=== PATIENT | male | born 1930 | race Caucasian/White ===

== ENCOUNTER → 2017-03-19 | Outpatient (CLI) | payer MEDICARE, OTHER ==
[~2017-03-19] MED LIST: ASPIR 8181 MG PO; CARVEDILOL3.125 MG PO; COLESTIPOL HCL1 GM PO; GLIMEPIRIDE2 MG PO; ISOSORBIDE MONO20 MG PO; LEVOTHYROXINE100 MC1 IV; LEVOTHYROXINE75 MCG PO; LOSARTAN POTASS25 MG PO; PLAVIX75 MG PO; RANEXA500 MG PO; ZETIA10 MG PO
--- NOTE | 2017-03-19 12:24 | Diagnostic Imaging Report ---
PROCEDURE: CT CHEST WITHOUT CONTRAST CT scan of the chest WITHOUT intravenous contrast, using standard protocol. TECHNIQUE: The chest was scanned utilizing a multidetector helical scanner from the apex to the level of the adrenal glands without IV contrast. Coronal and sagittal multiplanar reformations were obtained. COMPARISON: None. INDICATIONS: PULMONARY NODULE FINDINGS: Lines/tubes: The leads from a left chest wall biventricular pacemaker/AICD are in the expected positions. Lungs and Airways: 3 mm nodule in the left lung base (series 3, image 90) was originally described on 09/01/2015 and is stable since then. Subsegmental atelectasis of the lung bases. There is subpleural scarring throughout both lungs. No new/suspicious lung nodules. Pleura: Bilateral calcified pleural plaques, unchanged. No pneumothorax or pleural effusions. Heart and mediastinum: The thyroid gland is normal. No significant mediastinal, hilar or axillary lymphadenopathy is seen. Postsurgical changes from prior CABG. Dense atherosclerotic calcification of the [place] coronary arteries. No pericardial effusion. Dense atherosclerotic calcification of the thoracic aorta. The ascending thoracic aorta measures 4.2 cm in transaxial dimension. This is unchanged. Soft tissues: Normal. Abdomen: Limited views of the upper abdomen show no specific abnormality. Bones: Multilevel degenerative changes of the thoracic spine. Median sternotomy wires appear intact. IMPRESSION: 1. 3 mm nodule in the lower lobe of the left lung, stable since at least 09/01/2015. This is consistent with a benign etiology. No new or suspicious lung nodules. 2. Calcified pleural plaques, unchanged. Dictated by: Obie Ferreira M.D. on 03/19/2017 at 12:34 Electronically approved by: Obie Ferreira M.D. on 03/19/2017 at 12:34
== END ==
LOC: CT 09:36
PROVIDERS: ATTEND Internal Medicine Critical Care Medicine
DX: R91.1 Solitary pulmonary nodule (principal)
CPT/HCPCS: 71250

== ENCOUNTER 2017-07-18 18:05 | Observation (INO) | payer MEDICARE, OTHER ==
[~2017-07-18] VITALS: Ht 177.8 cm; Wt 95.4 kg
--- OUTSIDE RECORDS SUMMARY | 2017-07-18 18:09 | XMS REPORT | Clinical Summary ---
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 Disp. Refills Start End Date Status Date losartan (COZAAR) 100 MG Take 100 mg by mouth Active tablet daily. carvedilol (COREG) 12.5 Take 12.5 mg by mouth 2 Active MG tablet (two) times a day with meals. amIODarone (PACERONE) 200 Take 200 mg by mouth Active MG tablet daily. aspirin (ECOTRIN) 81 MG Take 81 mg by mouth Active enteric coated tablet daily. hydroCHLOROthiazide Take 25 mg by mouth Active (HYDRODIURIL) 25 MG daily. tablet LEVOTHYROXINE SODIUM Take by mouth. Active (SYNTHROID ORAL) glimepiride (AMARYL) 2 MG Take 2 mg by mouth daily Active tablet before breakfast. ranolazine (RANEXA) 500 Take 500 mg by mouth 2 Active MG 12 hr ER tablet (two) times a day. pantoprazole (PROTONIX) Take 20 mg by mouth Active 20 MG EC tablet daily. Active Problems Not on file Social History Tobacco Use Types Packs/Day Years Used Date Never Smoker Alcohol Use Drinks/Week oz/Week Comments No Sex Assigned at Date Recorded Not on file Last Filed Vital Signs Not on file Plan of Treatment Health Maintenance Due Date Last Done Comments SHINGRIX VACCINE (#1) 1982 ZOSTER VACCINE 1992 PNEUMOCOCCAL 1997 POLYSACCHARIDE VACCINE AGE 65 AND OVER PNEUMOCOCCAL-13 1997 INFLUENZA VACCINE 09/22/2017 Results Not on fileafter 07/17/2016 Insurance Payer Benefit Subscriber ID Type Phone Address Plan / Group MEDICARE MEDICARE xxxxxxxxxx Medicare [place] PART A AND B [facility] xxxxxxxxx HMO/PPO THCARE CHOICE/CHO ICE +
--- OUTSIDE RECORDS SUMMARY | 2017-07-18 18:09 | XMS REPORT ---
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 Allergies, Adverse Reactions, Alerts This patient has no known allergies or adverse reactions. Medications This patient has no known medications. Results Test Description Test Time Test Comments Text Results Atomic Results Result Comments CT CHEST WO [place] [address] Patient Name: SIDDHARTHA FLOWERS MR #: [id number] : 1930 Age/Sex: 86/M Req #: [id number] Adm Physician: Ordered by: ROSY MAY MD Report #: [id number] Location: CT Room/Bed: Procedure: [id number] CT/CT CHEST WO Exam Date: 03/19/17 Exam Time: 1000 REPORT STATUS: Signed PROCEDURE: CT CHEST WITHOUT CONTRAST CT scan of the chest WITHOUT intravenous contrast, using standard protocol. TECHNIQUE: The chest was scanned utilizing a multidetector helical scanner from the apex to the level of the adrenal glands without IV contrast. Coronal and sagittal multiplanar reformations were obtained. COMPARISON: None. INDICATIONS: PULMONARY NODULE FINDINGS: Lines/tubes: The leads from a left chest wall biventricular pacemaker/AICD are in the expected positions. Lungs and Airways: 3 mm nodule in the left lung base ( series 3, image 90) was originally described on 09/01/2015 and is stable since then. Subsegmental atelectasis of the lung bases. There is subpleural scarring throughout both lungs. No new/suspicious lung nodules. Pleura: Bilateral calcified pleural plaques, unchanged. No pneumothorax or pleural effusions. Heart and mediastinum: The thyroid gland is normal. No significant mediastinal, hilar or axillary lymphadenopathy is seen. Postsurgical changes from prior CABG. Dense atherosclerotic calcification of the [place] coronary arteries. No pericardial effusion. Dense atherosclerotic calcification of the thoracic aorta. The ascending thoracic aorta measures 4.2 cm in transaxial dimension. This is unchanged. Soft tissues: Normal. Abdomen: Limited views of the upper abdomen show no specific abnormality. Bones: Multilevel degenerative changes of the thoracic spine. Median sternotomy wires appear intact. IMPRESSION: 1. 3 mm nodule in the lower lobe of the left lung, stable since at least 09/01/2015. This is consistent with a benign etiology. No new or suspicious lung nodules. 2. Calcified pleural plaques, unchanged. Dictated by: Bethany Ferreira M.D. on 03/19/2017 at 12 :34 Electronically approved by: Bethany Ferreira M.D. on 03/19/2017 at 12: 34 Dictated By: BETHANY FERREIRA MD [id number] Transcribed By: AMILCAR on 03/19/17 1234 COPY TO: ROSY MAY MD
[2017-07-18 18:31] LABS: BASOPHILS % 0.7 % (0.0-1.0); EOSINOPHILS # (AUTO) 0.2 (0.0-0.4); EOSINOPHILS % 3.8 % (0.0-6.0); HEMATOCRIT 36.8 % (38.2-49.6); HEMOGLOBIN 12.1 g/dL (14.0-18.0); LYMPHOCYTES % 35.2 % (18.0-39.1); MEAN CORPUSCULAR HEMOGLOBIN 31.8 pg (28-32); MEAN CORPUSCULAR HGB CONC 32.9 g/dL (31-35); MEAN CORPUSCULAR VOLUME 96.6 fL (81-99); MONOCYTES # (AUTO) 0.7 (0.2-0.8); MONOCYTES % 11.8 % (4.4-11.3); NEUTROPHILS # (AUTO) 2.8 (2.1-6.9); NEUTROPHILS % 48.2 % (38.7-80.0); PLATELET COUNT 167 x10e3/uL (140-360); RED BLOOD COUNT 3.81 x10e6/uL (4.3-5.7); RED CELL DISTRIBUTION WIDTH 14.6 % (11.7-14.4)
[2017-07-18 18:40] LABS: INR 1.05; PROTHROMBIN TIME 12.9 seconds (11.9-14.5)
[2017-07-18 18:41] LABS: PARTIAL THROMBOPLASTIN TIME 27.6 seconds (23.8-35.5)
[2017-07-18 18:47] LABS: ALBUMIN 3.6 g/dL (3.5-5.0); ALBUMIN/GLOBULIN RATIO 0.9 (0.8-2.0); ANION GAP 13.1 mmol/L (8-16); CALCIUM 9.4 mg/dL (8.4-10.2); CREATININE, SERUM 1.36 mg/dL (0.72-1.25); MAGNESIUM 2.1 MG/DL (1.3-2.1); POTASSIUM 4.1 mmol/L (3.5-5.1)
[2017-07-18] MEDS ORDERED: HEPARIN 25,000U/0.45% NS 250ML 1,000 UNIT in SODIUM CHLORIDE 0.9% 250ML 0 ML IV SCH ×2 (19:00→19:45)
[2017-07-18 19:07] LABS: CREATINE KINASE MB 2.2 ng/mL (0-5.0); THYROID STIMULATING HORMONE 0.84 uIU/mL (0.350-4.940)
[2017-07-18] MEDS ORDERED: PANTOPRAZOLE SO40 MG PO (19:08)
[2017-07-18] MEDS ORDERED: ARICEPT5 MG PO (19:08)
[2017-07-18] MEDS ORDERED: AMIODARONE HCL200 MG PO (19:08)
--- NOTE | 2017-07-18 19:21 | Diagnostic Imaging Report ---
Exam: Head CT without contrast History: Left facial droop, following to left side multiple prior head CTs which date to 10/30/2015, most recent head CT of 07/29/2016. Comparison studies: None Technique: Axial images were obtained from the skull base to the vertex. Coronal and sagittal images reconstructed from the axial data. Intravenous contrast: None Findings: Scalp: No abnormalities. Bones: No fractures, blastic or lytic lesions. Brain volume: Mild generalized volume loss. Slightly greater disproportionate volume loss along the anteromedial temporal lobes is nonspecific. Ventricles: Mild compensatory dilatation. No hydrocephalus. Extra-axial spaces: No masses, no fluid collection. Parenchyma: No mass, acute hemorrhage or acute cortical vascular insults. Subtle hypodensity within the right middle and inferior frontal subcortical white matter was not visualized on the previous exams related to age-indeterminate nonhemorrhagic insult or possibly microvascular ischemic changes. A few additional scattered hypodensities in the supratentorial white matter are nonspecific but most compatible with chronic small vessel ischemic changes. Sellar/suprasellar region: No abnormalities. Craniocervical junction: Patent foramen magnum. No Chiari one malformation. Incidental findings: Atherosclerotic calcifications in the carotid siphons and left vertebral artery. A few scattered leptomeningeal calcifications are again identified. IMPRESSION: 1. Age-indeterminate nonhemorrhagic right frontal subcortical insult. 2. No other changes from the previous head CT of 07/29/2016. 3. Mild chronic microvascular ischemic changes. 4. Mild generalized volume loss. Superimposed disproportionate anteromedial temporal lobe volume loss is nonspecific but can be seen with Alzheimer's dementia in appropriate clinical setting. Signed by: Dr. Lenny Barry M.D. on 07/18/2017 7:17 PM
[2017-07-18 19:32] LABS: BILIRUBIN,URINE NEGATIVE (NEGATIVE); CLARITY,URINE CLEAR (CLEAR); COLOR,URINE YELLOW (YELLOW); KETONES,URINE NEGATIVE (NEGATIVE); LEUKOCYTE ESTERASE ,URINE NEGATIVE (NEGATIVE); NITRITE,URINE NEGATIVE (NEGATIVE); PROTEIN,URINE DIPSTICK NEGATIVE (NEGATIVE); URINE UROBILINOGEN 0.2 mg/dL (0.2 - 1)
[2017-07-18 19:45] LABS: BACTERIA,URINE RARE /HPF; EPITHELIAL CELLS,URINE RARE /LPF; WBC,URINE (MAN) 0-5 /HPF (0-5)
[2017-07-18] MEDS ORDERED: SODIUM CHLORIDE FLUSH 10 ML SYR INJ PRN (19:45)
[2017-07-18] MEDS ORDERED: ONDANSETRON HCL INJ 2 MG/ML VIAL IV PRN (19:45)
--- NOTE | 2017-07-18 19:48 | Diagnostic Imaging Report ---
EXAM: CHEST SINGLE (PORTABLE), AP 1 view INDICATION: Possible stroke COMPARISON: None FINDINGS: LINES/TUBES: Left approach cardiac device. LUNGS: No consolidations or edema. PLEURA: No effusions or pneumothorax. Calcified pleural plaques. HEART AND MEDIASTINUM: Normal for technique. BONES AND SOFT TISSUES: No acute findings. Chronic widening of the right acromioclavicular joint. IMPRESSION: No acute thoracic abnormality. Signed by: Dr. Nalini Sal M.D. on 07/18/2017 7:44 PM
[2017-07-18] MEDS ORDERED: ZOLOFT50 MG PO (20:19)
--- OUTSIDE RECORDS SUMMARY | 2017-07-18 20:33 | XMS REPORT | Clinical Summary ---
Author Author [facility] Address Unknown Phone Unavailable Care Team Providers Care Rn Night Name Role Phone Asked, Pcp PCP Unavailable [...] Plan / Group MEDICARE MEDICARE xxxxxxxxxx Medicare [place], [place] PART A AND B [facility] xxxxxxxxx HMO/PPO THCARE CHOICE/CHO ICE +
[2017-07-18 21:24] VITALS: BP 155/65
[2017-07-19] VITALS (8 sets, daily range): BP systolic 120–157; BP diastolic 58–69
[2017-07-19 08:14] LABS: BASOPHILS % 0.9 % (0.0-1.0); EOSINOPHILS # (AUTO) 0.2 (0.0-0.4); EOSINOPHILS % 3.5 % (0.0-6.0); HEMATOCRIT 34.4 % (38.2-49.6); HEMOGLOBIN 11.2 g/dL (14.0-18.0); LYMPHOCYTES # (AUTO) 1.4 (1.0-3.2); LYMPHOCYTES % 30.1 % (18.0-39.1); MEAN CORPUSCULAR HEMOGLOBIN 31.5 pg (28-32); MEAN CORPUSCULAR HGB CONC 32.6 g/dL (31-35); MEAN CORPUSCULAR VOLUME 96.9 fL (81-99); MONOCYTES # (AUTO) 0.5 (0.2-0.8); MONOCYTES % 11.8 % (4.4-11.3); NEUTROPHILS # (AUTO) 2.5 (2.1-6.9); NEUTROPHILS % 53.5 % (38.7-80.0); PLATELET COUNT 146 x10e3/uL (140-360); RED BLOOD COUNT 3.55 x10e6/uL (4.3-5.7); RED CELL DISTRIBUTION WIDTH 14.5 % (11.7-14.4)
[2017-07-19 08:39] LABS: CREATINE KINASE MB 2.2 ng/mL (0-5.0)
[2017-07-19] MEDS ORDERED: CLOPIDOGREL BISULFATE 75 MG TAB PO SCH (09:00)
[2017-07-19] MEDS ORDERED: ASPIRIN 81 MG ENTERIC COATED PO SCH (09:00)
[2017-07-19 09:01] LABS: ANION GAP 12.1 mmol/L (8-16); CALCIUM 8.9 mg/dL (8.4-10.2); CREATININE, SERUM 1.24 mg/dL (0.72-1.25); POTASSIUM 4.1 mmol/L (3.5-5.1)
--- NOTE | 2017-07-19 12:34 | History and Physical ---
CHIEF COMPLAINT: Slurred speech and facial droop that started suddenly at 3 p.m. on 07/18/2017. HPI: Mr. Lopez is an 87-year-old male. He lives with his daughter. The daughter noticed the patient suddenly started having weakness on the left arm, and he dropped his Coke along with facial droop. The symptoms started around 3 to 4 hours ago before they came to the emergency room. The symptoms completely resolved when they reached the emergency room. He still does not have any symptoms and no residual weakness or facial droop. He denies any chest pain, shortness of breath, nausea or vomiting. He has history of congestive heart failure with ejection fraction per daughter around 30%. He has an AICD defibrillator. All his physicians are in [place], [place], as he used to live there. Recently he has moved with the daughter. REVIEW OF SYSTEMS GENERAL: Denies any fever or chills. HEAD: Denies any head trauma. ENT: Denies any earaches. CVS: Denies any chest pain. RESPIRATORY: Denies any shortness of breath. GI: Denies any nausea or vomiting. REST OF THE REVIEW SYSTEMS: Negative except as in HPI. PAST MEDICAL HISTORY: AICD placement, coronary artery disease, history of CABG, carotid endarterectomy. Patient is on amiodarone; however, the daughter is saying there is no history of atrial fibrillation. Hypothyroidism and hypertension. FAMILY AND SOCIAL HISTORY: He quit smoking 45 years ago. 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 Also has questionable history of asbestos. He is currently living with his daughter. PHYSICAL EXAMINATION VITAL SIGNS: Temperature 96.5, pulse of 60, blood pressure 129/60, respiratory rate 18. O2 sat 96% on room air. HEENT: Head atraumatic, normocephalic. Pupils are reactive. NECK: Supple. CHEST: Clear to auscultation bilaterally, no wheezing. HEART: S1, S2 audible. ABDOMEN: Soft, nontender. EXTREMITIES: No clubbing, cyanosis or edema. NEUROLOGIC: Awake and alert. No focal neurologic deficit. LABS: White count of 4.59, hemoglobin 11.2, platelets 146. Chemistries within normal limits. Creatinine 1.24, was 1.36 yesterday. Troponins have been negative. BNP 352. CT of the head was done in the emergency room and showed an age-indeterminate, nonhemorrhagic site from 2 subcortical insults. No other changes from previous CT in July 2016. ASSESSMENT: Mr. Lopez is an 87-year-old male who presented to the emergency room with left-sided facial droop and weakness of the left arm which has resolved now. History of coronary artery disease and coronary artery bypass graft. The patient had a defibrillator placed in August 2013. CURRENT PROBLEMS 1. Transient ischemic attack versus acute cerebrovascular accident. 2. History of coronary artery disease. 3. History of carotid endarterectomy in the past. 4. Chronic systolic heart failure. 5. Diabetes. 6. Dementia. 7. History of asbestos exposure of the lung as well. PLAN 1. I will consult neurology for further recommendation. 2. Continue the patient on heparin for now. 3. Consult cardiology, possibly has history of atrial fibrillation in the past. 4. Resume Synthroid. 5. Continue the patient on aspirin and Plavix as well. 6. Will order a physical therapy evaluation and treatment. 7. Discussed with daughter at bedside. Job#: [id number]
--- NOTE | 2017-07-19 14:19 | Consultation ---
DATE OF CONSULTATION: July 19, 2017 CARDIAC CONSULTATION REASON FOR CONSULTATION: TIA affecting left upper arm. HISTORY: An 87-year-old gentleman who is followed by his egg smeller, Dr. Healy in [facility]. Cardiac-campoverde, patient is known with coronary artery disease. He had coronary artery bypass surgery for 4 vessels in 1989. He is known to have defibrillator placed and generator change in August 2013. 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 Patient seen and evaluated in this hospital almost a year ago for abdominal pain and possible some atherosclerotic changes in his abdominal aorta. He was seen by several disciplines and the plan was for medical therapy. Patient is followed by his egg smeller. Plan is also for medical therapy for his cardiac issues. There were no recent stress test and the daughter who is with him, quite happy with that decision. Patient brought to this institution because of weakness of left hand. This lasted for a couple of hours or so. He was having a cup which fell from his hand. He was unable to hold it. Today he is feeling well and he is sitting and he is comfortable. As per daughter, he is back to his baseline status. Patient denied having any angina or orthopnea or paroxysmal nocturnal dyspnea. There is no recent firing of his defibrillator. Patient is on [employer] watch and as per daughter there is no reported events from his egg smeller. 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 PAST MEDICAL HISTORY 1. Coronary artery disease with coronary artery bypass surgery in the . 2. Defibrillator [facility] with generator change in September 04. 3. Hypertension. 4. Diabetes mellitus. 5. Hyperlipidemia. 6. Peripheral arterial vascular disease. 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 8. Hypothyroidism. 9. Dementia. 10. Right rotator cuff surgery. SOCIAL HISTORY: He is a . He is retired. 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 He is nonsmoker and not an alcohol drinker. ALLERGIES: NONE. CURRENT MEDICATIONS: Includes amiodarone 100 mg a day, Plavix 75 mg a day, aspirin 81 mg a day, Coreg 3.125 mg twice a day, levothyroxine 75 mcg a day, losartan 25 mg a day, Protonix 40 mg a day, Zoloft 50 mg a day. REVIEW OF SYSTEMS GENERAL: No fever. No chills. SKIN: No rashes or sores. HEENT: Decreased hearing. No nausea. No vision changes. No double vision. No ear discharge. No vertigo. No tinnitus. CARDIAC: As per acute illness. No angina. No orthopnea. No paroxysmal nocturnal dyspnea. No firing of his defibrillator. PULMONARY: No acute shortness of breath. No wheezes. No coughing. No hemoptysis. GI: No hematemesis. No melena. No nausea. No vomiting. : Urinary, increased frequency, hesitancy but no hematuria. VASCULAR: Denies claudications or leg edema. MUSCULOSKELETAL: Muscle aches and weakness. NEUROLOGICAL: Left arm weakness acutely as per history of present illness. HEMATOLOGY: No bleeding, no bruising. ENDOCRINE: No heat, no cold intolerance. No excessive sweating. PHYSICAL EXAMINATION VITALS: Height of 5 feet 11 inches, weight of 208 pounds. Blood pressure 130/80. Heart rate of 70. Respiratory rate 18. HEENT: Pupils are equal reactive. NECK: No elevation of jugular venous pulsation. No bruit. CHEST: Clear to auscultation and percussion. HEART: PMI 5th left intercostal space on 1st and 2nd heart sounds. No additional murmur. Other findings, ICD in place. ABDOMEN: Soft with no organomegaly. No abdominal bruit. EXTREMITIES: No cyanosis. No clubbing. No edema. Decreased feet pulses. NEUROLOGIC: Neck is supple. No evidence of weakness clinically. Both arms are the same strength. Other finding, patient is forgetful. LABORATORY DATA: EKG showing atrial ventricular pacing. White blood cell count of 5,000, hemoglobin 11.2, hematocrit 34%, platelet count of 146,000. Sodium of 158, potassium of 4.1, BUN of 13, creatinine of 1.2. BNP of 352. Cardiac enzymes are normal. IMAGING: Chest x-ray showed no major abnormality except for tortuosity. CT head, there is right frontal occipital insult. IMPRESSION AND PLAN 1. Cerebrovascular accident/transient ischemic attack. 2. Coronary artery disease post coronary artery bypass surgery. 3. Defibrillator. 4. Chronic systolic heart failure. 5. Peripheral arterial vascular disease. 6. Hypertension. 7. Hyperlipidemia day. 8. Dementia. Cardiac-campoverde will keep patient on telemetry. Will check his defibrillator for transient atrial fibrillation or to any arrhythmia if it is recorded. Will check an echocardiogram and with check a carotid Doppler. Once we gather the data upon on observation and will discuss also with Dr. Matamoros and neurology regarding further management. Will follow patient's progression with you and would like to thank you for your kind referral. Job#: [id number] ADAL
[2017-07-19] MEDS: CARVEDILOL 3.125 MG TAB PO SCH (17:01)
--- NOTE | 2017-07-19 19:20 | Consultation ---
DATE OF CONSULTATION: July 19, 2017 NEUROLOGY CONSULT HISTORY OF PRESENT ILLNESS: Mr. Lopez is an 87-year-old right-hand dominant man with a past medical history significant for coronary artery disease with myocardial infarction, peripheral vascular disease, and dementia, who presented to [facility] on July 18, 2017, with symptoms suspicious for a transient ischemic attack/stroke. On the afternoon of July 18, 2017, the patient exited his daughter's car and dropped his drink from his left hand without realizing it. Mr. Lopez's daughter noticed a left facial droop as well. She took the patient inside her brother's home, and gave him aspirin 81 mg by mouth once. The patient's daughter thought his symptoms had improved, and no further medical evaluation was sought. While eating lunch, the patient was noted to be losing food out of the corner of his mouth. As Mr. Lopez and his daughter were leaving the house, the patient was leaning towards his left and drooling out of the left corner of his mouth. The above described symptoms occurred over a space of 1-1/2 hours. When she noticed her father was leaning towards the left and drooling from the left corner of his mouth, Mr. Lopez's daughter brought him to the emergency center at [facility] for further evaluation and treatment. Mr. Lopez does not report a visual field defect or other disturbance, dysarthria, or aphasia. His daughter reports a left facial droop as described above, as well as possible left hemiparesis. The patient and his daughter endorsed an unsteady gait. However, this may be chronic. Mr. Lopez utilizes a quad cane when walking. He is supposed to use a rolling walker, but declines to do so. Neither the patient nor his daughter report hemihypesthesia, dizziness, or worsening confusion associated with the aforementioned symptoms. Mr. Lopez has not experienced similar symptoms previously. He does not report a headache associated with the above symptoms. Upon arrival in the emergency center, the patient was afebrile with a blood pressure 132/44 mmHg and a pulse of 60 beats per minute. Documentation of the patient's general physical and neurological examination is unavailable for review at this time. The CT of the brain without contrast was performed, and revealed an age-indeterminate ischemic stroke in the right frontal subcortical region. Mr. Lopez was admitted to [facility] under observation status for further evaluation and treatment of his symptoms. The patient's daughter reports the above described symptoms resolved in less than 24 hours. REVIEW OF SYSTEMS: Memory loss, facial weakness, possible left hemiparesis, unsteady gait. Otherwise, a 12-point review of systems is negative. PAST MEDICAL HISTORY: Coronary artery disease with prior myocardial infarction, asbestosis, gastroesophageal reflux disease, depression, peripheral vascular disease, dementia. PAST SURGICAL HISTORY: Pacemaker/defibrillator placement, bilateral carotid endarterectomies, 4-vessel CABG, bilateral cataract surgeries, right rotator cuff repair. PAST HOSPITALIZATIONS: Surgeries and procedures as listed, heart attack, multiple falls. FAMILY HISTORY: The patient's paternal and maternal grandparents are . Their medical histories are unknown. The patient's father is from heart disease. Patient's mother is from heart disease. He has 1 brother who is from lung cancer. His brother was an alcoholic as well. Mr. Lopez has 1 living brother who has coronary artery disease. He has a younger sister who is alive and healthy. Mr. Lopez has 1 son who is . He had diabetes mellitus, coronary artery disease with prior myocardial infarction, and congestive heart failure. He has 1 daughter who is alive. She has mitral valve prolapse, irregular heartbeat, thyroid disease, and gastroesophageal reflux disease. SOCIAL HISTORY: Mr. Lopez is . He has a master's degree. 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 Mr. Lopez has a remote history of tobacco use; he quit smoking 45 years ago. Mr. Lopez does not report current or prior alcohol or recreational drug use. HOME MEDICATIONS 1. Amiodarone 100 mg by mouth daily. 2. Aspirin 81 mg by mouth daily. 3. Coreg 3.125 mg by mouth twice daily. 4. Plavix 75 mg by mouth daily. 5. Colestipol 1 g by mouth at bedtime daily. 6. Donepezil 10 mg by mouth at bedtime daily. 7. Levothyroxine 75 mcg by mouth daily. 8. Losartan 25 mg by mouth daily. 9. Pantoprazole 40 mg by mouth daily. 10. Zoloft 50 mg by mouth at bedtime daily. HOSPITAL MEDICATIONS 1. Heparin drip. 2. Zoloft 50 mg by mouth at bedtime daily. 3. Pantoprazole 40 mg by mouth daily. 4. Losartan 25 mg by mouth daily. 5. Levothyroxine 75 mcg by mouth every morning daily. 6. Donepezil 10 mg by mouth at bedtime daily. 7. Colestipol 1 g by mouth at bedtime daily. 8. Plavix 75 mg by mouth daily. 9. Coreg 3.125 mg by mouth twice daily. 10. Aspirin 81 mg by mouth daily. 11. Amiodarone 100 mg by mouth daily. 12. Zofran 4 mg intravenously every 4 hours as needed for nausea and vomiting. ALLERGIES: NO KNOWN DRUG ALLERGIES. NO KNOWN FOOD ALLERGIES. NO KNOWN ALLERGIES TO LATEX. NO KNOWN ALLERGIES TO IODINE OR OTHER CONTRAST MATERIALS. PHYSICAL EXAMINATION VITAL SIGNS: Height 70 inches, weight 210 pounds, BMI 30.2 kg per meter squared. Blood pressure 133/63 mmHg, pulse 60 beats per minute, respiratory rate 18 breaths per minute, oxygen saturation 98% on room air. GENERAL: Patient is awake and alert. Does not appear distressed. Overweight. HEENT: Normocephalic and atraumatic. Pupils are equal, round and reactive to light. Moist mucous membranes. NECK: Supple. No appreciable thyromegaly. No appreciable carotid bruits. CARDIOVASCULAR: S1 and S2. Regular rate and rhythm. No murmurs, rubs or gallops. RESPIRATORY: Clear to auscultation bilaterally. No wheezes, rhonchi or rales. EXTREMITIES: The skin is warm and dry. No clubbing, cyanosis or edema. The posterior tibial and dorsalis pedis pulses are 1+ and symmetric. SKIN: Ecchymoses and abrasions over the forearms and forelegs. NEUROLOGIC: Memory/attention: The patient is awake and alert. Oriented to person, place (hospital, city and state with multiple choice), but not time or situation. CRANIAL NERVES: Cranial nerve I, not tested. Cranial nerve II-III IV, and : Pupils are equal and round. React briskly to light (from 3 mm to 1 mm) . Extraocular movements intact. No nystagmus. Cranial nerve V: Sensation to light touch and pinprick is intact in the bilateral V1 through V3 distributions. Strength of the temporalis and masseter muscles is within normal limits. Cranial nerve VII: The face is symmetric as are all facial movements. Strength is within normal limits. Cranial nerve VIII: Hearing is diminished to finger rub bilaterally. Cranial nerve IX and X: The soft palate elevates equally and symmetrically. Cranial nerve XI: Normal strength of the bilateral sternocleidomastoid and trapezius muscles. Cranial nerve XII: The tongue protrudes midline and moves symmetrically from side to side. STRENGTH: Bulk is normal and strength is 5/5 in the bilateral deltoids, biceps, triceps, wrist flexors and extensors, finger flexors and extensors, intrinsic hand muscles, hip flexors, knee flexors and extensors, ankle dorsiflexion and plantarflexion, and intrinsic foot muscles. Tone is normal. DTRs: Deep tendon reflexes are 1+ and symmetric at the triceps, biceps, brachioradialis, and patellas. Deep tendon reflexes are absent and symmetric at the Achilles. Plantar responses are flexor bilaterally. SENSATION: Sensation is intact to light touch and pinprick in both arms and both legs. CEREBELLAR: Tjtdtm-zina-uulrjy and heel-lacy movements are intact without dysmetria or other impairment. GAIT: Deferred. SPEECH: Spontaneous speech is normal without appreciable dysarthria or aphasia. Repetition is intact. INVOLUNTARY MOVEMENTS: None. PRONATOR DRIFT: None. LABORATORY DATA: Sodium 138, potassium 4.1, chloride 103, carbon dioxide 27, anion gap 12.1, BUN 13, creatinine 1.24, estimated GFR 55. BUN to creatinine ratio 10, glucose 120, calcium 8.9 from July 18, 2017. Total bilirubin 0.6, AST 22, ALT 25, alkaline phosphatase 61, total protein 75, albumin 3.6, globulin 3.9. Albumin to globulin ratio 0.9. CK 103, 93, 92. CK-MB 2.2, 2 and 2.2. Troponin I 0.005, 0.002, 0.005. B-natriuretic peptide 352. TSH 0.84. CBC with differential and platelets reveals a white blood cell count of 4.59 with 53.5% neutrophils, 30.1% lymphocytes, 11.1% monocytes, 3.5% eosinophils, and 0.9% basophils. The hemoglobin and hematocrit are 11.2 and 34.4, respectively. The platelet count is 146,000. PT 12.9 and INR 1.05. PTT 27.6, 51.1 and 54.1. Urinalysis is unremarkable. Urine culture collected on July 18, 2017, reveals no growth. DIAGNOSTIC STUDIES: EKG on July 18, 2017, paced rhythm at 60 beats per minute. Chest x-ray on July 18, 2017, no acute thoracic abnormality. CT of the brain without contrast on July 18, 018, age-indeterminate ischemic stroke in the right frontal subcortical region. Mild to moderate chronic small vessel ischemic disease. Diffuse cerebral atrophy with dominance over the temporal parietal lobes. ASSESSMENT AND PLAN: Mr. Lopez is an 87-year-old right-hand dominant man with a past medical history significant for coronary artery disease with prior myocardial infarction, peripheral vascular disease, and dementia admitted to [facility] on July 18, 2017, with transient ischemic attack/stroke. Other than disorientation to time and situation, the patient's neurological examination is nonfocal. His laboratory data and other diagnostic studies have been reviewed and are documented above. Mr. Lopez's symptoms as described in the history of present illness are compatible with a transient ischemic attack/stroke. RECOMMENDATIONS 1. Lipid panel and hemoglobin A1c. 2. Echocardiogram. 3. Bilateral carotid artery ultrasound with Doppler. 4. Discontinue heparin drip. 5. Continue aspirin 81 mg by mouth daily and Plavix 75 mg by mouth daily for now. Mr. Lopez will possibly be prescribed anticoagulation prior to discharge. 6. Blood pressures are well controlled. Continue with current medications. 7. Follow up lipid panel. 8. Follow up hemoglobin A1c. 9. Speech and physical therapy consultations will be ordered. 10. GI prophylaxis with Protonix. DVT prophylaxis, Heparin drip we discontinued. SHERRELL moon and SALENAs for further DVT prophylaxis. 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 Recommendations are as follows: 1. Additional blood work will be ordered to evaluate for reversible causes of cognitive impairment. Those tests include: A vitamin B12 level and RPR. 2. Continue the patient's home medication of donepezil 10 mg by mouth at bedtime daily. Thank you for this consultation. I will continue to follow the patient while he remains in the hospital. Time spent 70 minutes. Job#: [id number] TAISHA MALHOTRA
[2017-07-19] MEDS: DONEPEZIL HCL 5 MG TAB PO SCH (21:20)
[2017-07-19] MEDS: COLESTIPOL HCL 1 G TAB PO SCH (21:20)
[2017-07-19] MEDS: SERTRALINE HCL 50 MG TAB PO SCH (21:20)
[2017-07-20] VITALS: BP 136/65
[2017-07-20 04:00] VITALS: BP 131/61
[2017-07-20] MEDS: LEVOTHYROXINE SODIUM 100 MCG TAB PO SCH (06:04)
[2017-07-20] MEDS: LEVOTHYROXINE SODIUM 75 MCG TAB PO SCH (06:04)
[2017-07-20 07:20] LABS: BASOPHILS % 0.6 % (0.0-1.0); EOSINOPHILS # (AUTO) 0.2 (0.0-0.4); EOSINOPHILS % 3.5 % (0.0-6.0); HEMOGLOBIN 11.7 g/dL (14.0-18.0); LYMPHOCYTES # (AUTO) 1.5 (1.0-3.2); LYMPHOCYTES % 27.1 % (18.0-39.1); MEAN CORPUSCULAR HGB CONC 33.4 g/dL (31-35); MEAN CORPUSCULAR VOLUME 95.6 fL (81-99); MONOCYTES # (AUTO) 0.7 (0.2-0.8); MONOCYTES % 13.1 % (4.4-11.3); NEUTROPHILS % 55.5 % (38.7-80.0); PLATELET COUNT 148 x10e3/uL (140-360); RED BLOOD COUNT 3.66 x10e6/uL (4.3-5.7); RED CELL DISTRIBUTION WIDTH 14.5 % (11.7-14.4)
[2017-07-20 07:35] LABS: ALBUMIN 3.3 g/dL (3.5-5.0); ALBUMIN/GLOBULIN RATIO 0.9 (0.8-2.0); ANION GAP 9.8 mmol/L (8-16); CALCIUM 9.3 mg/dL (8.4-10.2); CREATININE, SERUM 1.34 mg/dL (0.72-1.25); POTASSIUM 4.8 mmol/L (3.5-5.1)
[2017-07-20 07:47] LABS: THYROID STIMULATING HORMONE 1.033 uIU/mL (0.350-4.940)
[2017-07-20 08:26] VITALS: BP 141/63
[2017-07-20] MEDS: AMIODARONE HCL 200 MG TAB PO SCH (08:26)
[2017-07-20] MEDS: CARVEDILOL 3.125 MG TAB PO SCH ×2 (08:26→17:04)
[2017-07-20] MEDS: LOSARTAN POTASSIUM 25 MG TAB PO SCH (08:26)
[2017-07-20] MEDS: PANTOPRAZOLE SOD 40 MG TABEC PO SCH (08:27)
[2017-07-20 08:49] VITALS: BP 141/63
[2017-07-20] MEDS ORDERED: CLOPIDOGREL BISULFATE 75 MG TAB PO SCH (09:00)
[2017-07-20] MEDS ORDERED: ASPIRIN 81 MG CHEW TAB PO SCH (09:00)
[2017-07-20] MEDS ORDERED: LEVOTHYROXINE SODIUM 100 MCG/VIAL IV SCH (09:00)
[2017-07-20] MEDS ORDERED: POTASSIUM CHLORIDE 20MEQ/100ML 200 ML IV ONE (11:45)
[2017-07-20 16:00] VITALS: BP 145/63
[2017-07-20 20:00] VITALS: BP 150/67
[2017-07-20] MEDS ORDERED: ATORVASTATIN 20 MG TAB PO SCH (21:00)
[2017-07-20] MEDS ORDERED: ATORVASTATIN 40 MG TAB PO SCH (21:00)
[2017-07-20] MEDS: SERTRALINE HCL 50 MG TAB PO SCH (21:00)
[2017-07-20] MEDS: DONEPEZIL HCL 5 MG TAB PO SCH (21:10)
[2017-07-20] MEDS: COLESTIPOL HCL 1 G TAB PO SCH (21:10)
[2017-07-21] VITALS: BP 123/60
[2017-07-21 04:00] VITALS: BP 118/58
[2017-07-21] MEDS: LEVOTHYROXINE SODIUM 75 MCG TAB PO SCH (05:47)
[2017-07-21] MEDS: LEVOTHYROXINE SODIUM 100 MCG TAB PO SCH (05:47)
[2017-07-21 07:33] VITALS: BP 115/58
[2017-07-21 07:41] VITALS: BP 115/58
[2017-07-21] MEDS: LOSARTAN POTASSIUM 25 MG TAB PO SCH (09:00)
[2017-07-21] MEDS: AMIODARONE HCL 200 MG TAB PO SCH (09:00)
[2017-07-21] MEDS ORDERED: APIXAB 2.5 MG TABLET PO SCH (09:00)
[2017-07-21] MEDS: CARVEDILOL 3.125 MG TAB PO SCH (09:30)
[2017-07-21] MEDS: PANTOPRAZOLE SOD 40 MG TABEC PO SCH (09:30)
[2017-07-21] MEDS ORDERED: ONDANSETRON HCL 4 MG ORAL DISINTEGRATING TAB PO PRN (11:00)
[2017-07-21 11:38] VITALS: BP 123/59
[2017-07-21] MEDS ORDERED: eliquis PO (14:17)
--- NOTE | 2017-07-21 14:23 | Discharge Summary ---
FINAL DIAGNOSES 1. Transient ischemic attack, stroke. 2. History of coronary artery disease. 3. Defibrillator status. 4. Diabetes. 5. Peripheral arterial disease. 6. History of asbestosis exposure. 7. Hypothyroidism. 8. Dementia. ADMISSION HISTORY AND HOSPITAL COURSE: Mr. Lopez is an 87-year-old male who presented with slurred speech and facial droop. [facility] as I was in the ER call. Consulted Neurology and Cardiology. Continued the patient initially on heparin, now patient has been prescribed Eliquis by Dr. Hines. Dr. Desir recommended to continue the patient on Plavix which they have discussed with Dr. Desir. The patient will be discharged home to follow up with his primary care physician, follow up with Neurology and Cardiology per their recommendations. DISCHARGE MEDICATIONS: List reviewed. BRENDA GIMENEZ MD Job#: [id number] ADAL
== END 2017-07-21 14:27 | disposition home or self-care (01) ==
LOC: ER 18:05 → ERHOLD 19:38 → MED/SURG 21:11
PROVIDERS: ADMIT Internal Medicine; ATTEND Internal Medicine
DX: I63.9 Cerebral infarction, unspecified (principal); R29.810 Facial weakness; I25.10 Atherosclerotic heart disease of native coronary artery without angina pectoris; Z95.1 Presence of aortocoronary bypass graft; F03.90 Unspecified dementia, unspecified severity, without behavioral disturbance, psychotic disturbance, mood disturbance, and anxiety; Z95.810 Presence of automatic (implantable) cardiac defibrillator; I48.91 Unspecified atrial fibrillation; I11.0 Hypertensive heart disease with heart failure; I50.22 Chronic systolic (congestive) heart failure; E11.9 Type 2 diabetes mellitus without complications; I73.9 Peripheral vascular disease, unspecified; I25.2 Old myocardial infarction; Z79.01 Long term (current) use of anticoagulants; R53.81 Other malaise
CPT/HCPCS: 36415; 80053; 80061; 84443; 85025; 85730; 92523; 93005; 93306; 93880; 99284; G0378 ×4; J1644; J7050; S0164 ×2

== ENCOUNTER 2017-08-18 05:26 | Inpatient (IN) | payer MEDICARE, OTHER ==
[~2017-08-18] VITALS: Ht 177.8 cm; Wt 89.4 kg
[2017-08-18] VITALS (51 sets, daily range): BP systolic 78–148; BP diastolic 42–65
[~2017-08-18 05:26] MED LIST changes: +AMIODARONE HCL200 MG PO; +ARICEPT5 MG PO; +PANTOPRAZOLE SO40 MG PO; +ZOLOFT50 MG PO; +eliquis PO
[2017-08-18] MEDS ORDERED: ONDANSETRON HCL INJ 2 MG/ML VIAL IV STA ×2 (05:38→07:49)
[2017-08-18] MEDS ORDERED: DIATRIZOATE MEGL/DIATRIZOA SOD 30 ML BTL PO ONE (05:49)
[2017-08-18 05:54] LABS: BASOPHILS % 0.3 % (0.0-1.0); EOSINOPHILS # (AUTO) 0.2 (0.0-0.4); EOSINOPHILS % 2.6 % (0.0-6.0); HEMATOCRIT 37.4 % (38.2-49.6); HEMOGLOBIN 12.4 g/dL (14.0-18.0); LYMPHOCYTES # (AUTO) 1.3 (1.0-3.2); LYMPHOCYTES % 20.7 % (18.0-39.1); MEAN CORPUSCULAR HEMOGLOBIN 31.7 pg (28-32); MEAN CORPUSCULAR HGB CONC 33.2 g/dL (31-35); MEAN CORPUSCULAR VOLUME 95.7 fL (81-99); MONOCYTES # (AUTO) 0.5 (0.2-0.8); MONOCYTES % 7.6 % (4.4-11.3); NEUTROPHILS # (AUTO) 4.3 (2.1-6.9); NEUTROPHILS % 68.5 % (38.7-80.0); PLATELET COUNT 164 x10e3/uL (140-360); RED BLOOD COUNT 3.91 x10e6/uL (4.3-5.7); RED CELL DISTRIBUTION WIDTH 14.6 % (11.7-14.4)
[2017-08-18] MEDS ORDERED: VITAMIN E1000 UNI3 PO (05:57)
[2017-08-18] MEDS ORDERED: ATORVASTATIN CA20 MG PO (05:58)
[2017-08-18 06:05] LABS: INR 1.2; PROTHROMBIN TIME 14.3 seconds (11.9-14.5)
[2017-08-18 06:06] LABS: PARTIAL THROMBOPLASTIN TIME 30.3 seconds (23.8-35.5)
[2017-08-18] MEDS ORDERED: ELIQUIS PO (06:07)
[2017-08-18 06:14] LABS: ANION GAP 14.2 mmol/L (8-16); CALCIUM 9.2 mg/dL (8.4-10.2); CREATININE, SERUM 1.5 mg/dL (0.72-1.25); POTASSIUM 4.2 mmol/L (3.5-5.1)
[2017-08-18 06:22] LABS: CREATINE KINASE MB 2.1 ng/mL (0-5.0)
--- NOTE | 2017-08-18 06:25 | Diagnostic Imaging Report ---
EXAMINATION: CHEST SINGLE (PORTABLE) INDICATION: Cough. COMPARISON: 07/18/2017 FINDINGS: TUBES and LINES: AICD is intact. LUNGS: Lungs are not well inflated. There are bibasilar atelectasis. There is mild prominence of the central pulmonary vasculature, consistent with pulmonary venous congestion. PLEURA: No pleural effusion or pneumothorax. There is evidence of calcifications along the diaphragmatic pleura HEART AND MEDIASTINUM: Cardiac size is mildly enlarged. There are atherosclerotic calcifications within the aorta. Midline sternotomy wires are intact. BONES AND SOFT TISSUES: No acute osseous lesion. Soft tissues are unremarkable. UPPER ABDOMEN: No free air under the diaphragm. IMPRESSION: 1. No acute thoracic abnormality. 2. Calcifications along the diaphragmatic pleura suggest prior empyema or asbestos related pleural disease Signed by: Dr. Alejo Duncan M.D. on 08/18/2017 6:21 AM
--- NOTE | 2017-08-18 08:23 | Diagnostic Imaging Report ---
PROCEDURE: CT ABDOMEN AND PELVIS WITHOUT CONTRAST TECHNIQUE: The abdomen and pelvis were scanned utilizing a multidetector helical scanner from the diaphragm to the lesser trochanter without IV or oral contrast material per physicians orders. Coronal and sagittal multiplanar reformations were obtained. DLP: 545.96 mGy-cm COMPARISON: CT of the chest dated 03/19/2017. INDICATIONS: NAUSEA AND VOMITING FINDINGS: ABSENCE OF INTRAVENOUS CONTRAST DECREASES SENSITIVITY FOR DETECTION OF FOCAL LESIONS AND VASCULAR PATHOLOGY. LOWER THORAX: Calcified pleural plaques. Patchy airspace opacities in the right middle lobe, right lower lobe and left lower lobe are nonspecific and inadequately evaluated on this abdominal CT but were not present on the prior chest CT. HEPATOBILIARY: No focal hepatic lesions. No biliary ductal dilatation. SPLEEN: No splenomegaly. PANCREAS: No focal masses or ductal dilatation. ADRENALS: No adrenal nodules. KIDNEYS/URETERS: No hydronephrosis, stones, or solid mass lesions. PELVIC ORGANS/BLADDER: Calcification within the prostate gland. PERITONEUM / RETROPERITONEUM: No free air or fluid. LYMPH NODES: No lymphadenopathy. VESSELS: Diffuse arterial vascular calcification. 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 Dense calcification in the right femoral artery likely represents occlusion. GI TRACT: No distention or wall thickening. Small hiatal hernia. Scattered diverticula within the colon. Prominent ileocecal valve consistent with lipomatous infiltration. The appendix is not enlarged and noted to be retrocecal. BONES AND SOFT TISSUES: Degenerative changes of the spine. Focal lucency at the L3 vertebral body measures 1.4 cm. This could represent a hemangioma. IMPRESSION: 1. No acute abnormality within the abdomen or pelvis. 2. 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 3. Patchy air space opacities are nonspecific but could be reflective of aspiration. 4. Lytic lesion of L3 likely represents a hemangioma. Sundar Catalan D.O. Dictated by: Sundar Catalan D.O. on 08/18/2017 at 8:27 Electronically approved by: Sundar Catalan D.O. on 08/18/2017 at 8:27
[2017-08-18] MEDS ORDERED: ETOMIDATE 2 MG/ML 10 ML INJ IV STA (08:40)
[2017-08-18] MEDS ORDERED: VECURONIUM BROMIDE FOR INJ 20 MG VIAL IV STA (08:40)
[2017-08-18] MEDS: PROPOFOL IV EMULSION 10MG/ML 100 ML IV SCH ×2 (09:04→17:47)
--- NOTE | 2017-08-18 09:11 | Diagnostic Imaging Report ---
PROCEDURE: A single AP view of the chest. COMPARISON: None. INDICATIONS: POST INTUBATION FINDINGS: Lines/tubes: Endotracheal tube present. There is also a nasogastric tube extending below the diaphragm. Triple lead left chest wall cardiac device present. Lungs: Right middle and lower lobe airspace opacities. There is no evidence of pulmonary edema. Pleura: There is no pleural effusion or pneumothorax. Bilateral diaphragmatic pleural calcifications/plaques. Heart and mediastinum: The heart and the mediastinum are unremarkable. Bones: No acute bony abnormality. IMPRESSION: Right basilar opacity compatible with aspiration pneumonitis. Sundar Catalan D.O. Dictated by: Sundar Catalan D.O. on 08/18/2017 at 9:16 Electronically approved by: Sundar Catalan D.O. on 08/18/2017 at 9:16
[2017-08-18] MEDS ORDERED: CLINDAMYCIN 600MG/D5W 50ML 50 ML IV STA (09:35)
[2017-08-18] MEDS ORDERED: CEFTRIAXONE SOD 1 GM VIAL IM ONE (09:45)
[2017-08-18 09:46] LABS: ABG HCO3 23 mmol/L (23-28); ABG PCO2 53 mmHg (41-51); ABG PH 7.24 (7.31-7.41); ABG PO2 98 mmHg (80-105)
[2017-08-18] MEDS ORDERED: SODIUM CHLORIDE 0.9% 1000ML 1,000 ML IV SCH (09:57)
[2017-08-18 11:09] LABS: WBC,FECAL (FECAL LACTOFERRIN) POSITIVE (NEGATIVE)
[2017-08-18] MEDS ORDERED: LORAZEPAM INJ 2 MG/ML VIAL ONE (12:12)
[2017-08-18] MEDS ORDERED: LORAZEPAM INJ 2 MG/ML VIAL IV PRN (12:15)
[2017-08-18] MEDS ORDERED: LORAZEPAM INJ 2 MG/ML VIAL IV ONE (12:15)
[2017-08-18] MEDS ORDERED: NOREPINEPHRINE INJ 4MG/4ML 8 MG in DEXTROSE 5% 250ML 250 ML IV PRN (12:15)
--- NOTE | 2017-08-18 14:34 | Diagnostic Imaging Report ---
PROCEDURE: A single AP view of the chest. COMPARISON: Same day chest radiograph at 8:45 am. INDICATIONS: PICC LINE PLACEMENT FINDINGS: Lines/tubes: * Interval placement of a right upper extremity PICC with tip overlying the superior vena cava. * Endotracheal tube tip projects approximately 4.3 cm above the fani. * Nasogastric tube tip projects over the gastric cardia. Side hole not well visualized. * Left chest wall AICD. Lungs: Stable right middle and lower lobe opacities. Pleura: There is no pleural effusion or pneumothorax. Pleural calcifications/plaques are again noted. Heart and mediastinum: The heart and the mediastinum are unremarkable. Bones: No acute bony abnormality. Median sternotomy wires. IMPRESSION: 1. Right PICC tip overlies the superior vena cava. Additional lines as tubes as above. 2. Stable opacities in the right lung likely representing aspiration. Dictated by: Berry Alexander M.D. on 08/18/2017 at 14:38 Electronically approved by: Berry Alexander M.D. on 08/18/2017 at 14:38
[2017-08-18] MEDS: LEVOFLOXACIN 250MG/D5W 50ML 50 ML IV SCH (15:03)
--- NOTE | 2017-08-18 15:15 | History and Physical ---
HISTORY OF PRESENT ILLNESS: Mr. Lopez is an 87-year-old man with a history of coronary artery disease status post CABG, permanent pacemaker, defibrillator, hypertension, hyperlipidemia, history of a stroke, pneumoconiosis. Brought to the emergency room today because apparently yesterday patient was kind of slow. Last night he started coughing. Early this morning he had a cough and vomiting and some chest tightness. So, they decided to bring him to the emergency room. Came to the emergency room. He had another episode of vomiting, went into respiratory failure, had to be intubated to protect the airway and because he was acidotic. PAST MEDICAL HISTORY: Patient has history of coronary artery disease status post CABG, a history of permanent pacemaker, defibrillator, history of a stroke in June 2017, hypertension, hyperlipidemia, pneumoconiosis and questionable diabetes. ALLERGIES: NO KNOWN DRUG ALLERGIES. PAST SURGICAL HISTORY: He had the pacemaker and defibrillator placed. He had right shoulder surgery. He had CABG. SOCIAL HISTORY: He does not smoke and he does not drink. He lives at home with his daughter. PHYSICAL EXAMINATION GENERAL: Today he is orally intubated. VITAL SIGNS: Temperature is 99.6. Blood pressure is 92/54. The heart rate is 68. O2 oxygenation is 99%. HEART: Regular rate. LUNGS: Poor inspiratory effort. ABDOMEN: Soft. LAB WORK: White count is 6.22, hemoglobin 12.4, hematocrit 37.4. Blood gas shows a pH of 7.24 and a CO2 of 53. Sodium is 140, potassium is 4.2, creatinine is 1.50, glucose is 150. First set of cardiac enzymes negative. BNP 467. C. diff is pending. Blood cultures are also pending. Had a chest x-ray on admission that shows right basilar opacity compatible with aspiration pneumonitis. Had an abdominal and pelvic CT that shows no acute abnormalities. Had a chest x-ray done again that still showed no acute thoracic abnormality, calcifications along the diaphragm suggesting prior empyema or asbestos-related pleural disease. ASSESSMENT AND PLAN 1. Acute respiratory failure. 2. Aspiration pneumonia. 3. Coronary artery disease status post coronary artery bypass graft. 4. Presence of a permanent pacemaker and defibrillator. 5. Hypertension. 6. Hyperlipidemia. 7. Pneumoconiosis. 8. History of a stroke. 9. Questionable diabetes. The plan at the present time is to admit the patient to ICU, monitor blood pressure, monitor oxygenation, start the patient on IV antibiotics. A critical care consult was requested with Dr. Flores. An infectious disease consult was requested with Dr. Calvo. We are going to also get a insole and outsole splitter involved in the case. All this was discussed with the granddaughters at bedside. All questions were answered to satisfaction. Daughter on the phone was also giving us information about the patient. I spent more than 40 minutes examining patient, reviewing lab results, x-rays, discussing plan of care with family. Job#: [id number] EV
[2017-08-18 15:16] LABS: ABG HCO3 23 mmol/L (23-28); ABG PCO2 37 mmHg (41-51); ABG PH 7.37 (7.31-7.41); ABG PO2 72 mmHg (80-105)
[2017-08-18] MEDS: CLINDAMYCIN 600MG/D5W 50ML 50 ML IV SCH ×3 (15:22→23:52)
[2017-08-18 15:24] LABS: C DIFFICILE TOXIN A&B AMP PROB NEGATIVE (NEGATIVE)
--- NOTE | 2017-08-18 15:29 | Consultation ---
DATE OF CONSULTATION: August 18, 2017 PULMONARY/CRITICAL CARE CONSULTATION REFERRING PHYSICIAN: Dr. Carr CHIEF COMPLAINT: History of pneumoconiosis and aspiration pneumonia. 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 He also has a history of pulmonary nodules that were being followed with serial CT scans through my office since 2016. Patient required hospitalization at [facility] last month with a transient ischemic attack and some possible congestive heart failure. He was discharged home on low-dose Eliquis and Plavix. He is also on amiodarone for atrial fibrillation. Early this morning, he developed some nausea and vomiting. He developed some cough as well. After arriving in the emergency department, he desaturated and had congestion consistent with aspiration. He required intubation. PAST SURGICAL HISTORY 1. Status post coronary artery bypass grafting. 2. Status post cardiac pacemaker. SOCIAL HISTORY: The patient is a nonsmoker. He is not a drinker. He has a history of asbestos and workplace exposures. FAMILY HISTORY: The family history is significant for heart disease in his father and his mother. He also had a brother with lung cancer and has a son with heart problems. REVIEW OF SYSTEMS: The patient did not have fevers. He did not have headache or neck pain. He did not have any chest pain. He did have some cough and congestion. He had some nausea and vomiting. He did not have abdominal pain. There is no leg edema. There are no focal neurological complaints. PHYSICAL EXAMINATION VITALS: The blood pressure is 80/44, and he is on low-dose Levophed. He is on pressure-regulated volume control ventilation. His rate is 18, and his tidal volume is 500. The O2 sat is 85%. HEENT: Examination shows no facial swelling or erythema. LYMPHATIC EXAMINATION: No submandibular, cervical or supraclavicular adenopathy. CARDIAC: Exam reveals a regular rate and rhythm with normal S1 and S2. LUNGS: Auscultation of the lungs reveal rhonchorous breath sounds bilaterally. There is no wheezing. ABDOMEN: Soft and nontender. There is no rebound or guarding. EXTREMITIES: Examination shows 1 to 2+ leg edema. NEUROLOGIC: Exam shows no focal abnormalities. He is sedated on Diprivan. LABORATORY DATA: The white blood cell count is 6.2, and hemoglobin is 12.4. The platelet count is 164. The ICH-rv-erpeedburm ratio is 18 to 1.5. The other electrolytes are within normal limits. The BNP is 467. RADIOGRAPHIC DATA: The chest x-ray shows a right basilar opacity consistent with aspiration pneumonia. IMPRESSION 1. Qoqch-vt-fogryrh respiratory failure. 2. Aspiration pneumonia with septic shock. 3. Pneumoconiosis. 4. Chronic systolic congestive heart failure. 5. Atrial fibrillation. 6. History of transient ischemic attack. 7. History of hypothyroidism. PLAN 1. The patient has been started on antibiotics to cover for aspiration and healthcare-acquired organisms. 2. Will use Levophed as needed. 3. Wean oxygen and then wean mechanical ventilation as tolerated. 4. Continue current cardiac regimen. 5. Enteral feedings. 6. DVT prophylaxis. Job#: [id number]
[2017-08-18] MEDS: CARVEDILOL 3.125 MG TAB PO SCH (16:51)
[2017-08-18] MEDS: ACETAMINOPHEN 325 MG/10 ML UDC NG PRN (16:52)
[2017-08-18] MEDS ORDERED: PANTOPRAZOLE SOD 40 MG TABEC PO SCH (17:00)
[2017-08-18] MEDS: PANTOPRAZOLE SODIUM 40 MG SUSPDR.PKT PO SCH (17:10)
[2017-08-18] MEDS ORDERED: WATER STERILE 10 ML VIAL ONE (18:56)
[2017-08-18] MEDS ORDERED: VECURONIUM BROMIDE FOR INJ 20 MG VIAL ONE (18:56)
[2017-08-18] MEDS ORDERED: ETOMIDATE 2 MG/ML 10 ML INJ IV ONE (18:56)
[2017-08-18] MEDS: SERTRALINE HCL 50 MG TAB PO SCH (21:00)
[2017-08-18] MEDS: COLESTIPOL HCL 1 G TAB PO SCH (21:00)
[2017-08-18] MEDS: CEFTRIAXONE SOD 1 GM VIAL IV SCH (22:00)
--- NOTE | 2017-08-18 23:46 | Consultation ---
DATE OF CONSULTATION: August 18, 2017 CARDIOLOGY CONSULTATION CHIEF COMPLAINT: Hypertension, shortness of breath. HISTORY OF PRESENT ILLNESS: Mr. Lopez is an 87-year-old man with multiple comorbidities including coronary artery disease, status post aortocoronary bypass, chronic systolic heart failure with LVEF 25%-30% on recent echocardiogram, zqjp-fn-scpzlltn aortic stenosis, status post [employer] ICD generator change in August 2013, hypertension, diabetes, dyslipidemia, peripheral vascular disease, history of asbestosis, hypothyroidism, dementia, status post aortocoronary bypass in the s. Follows up with healthcare applications analyst, Dr. Healy, in [facility]. Presents with acute respiratory failure, requiring endotracheal intubation on ventilatory support. Hypertension requiring Levophed currently at 10 mcg per minute. He is undergoing treatment for aspiration pneumonia, as well as healthcare-associated pneumonia organisms by Dr. Flores. Currently, unable to assist further, patient sedated. REVIEW OF SYSTEMS: Unable to assess, patient sedated. ALLERGIES: NO KNOWN DRUG ALLERGIES. PAST MEDICAL HISTORY: As per HPI. Also, history of TIAs. SOCIAL HISTORY: No reported history of smoking or alcohol. Has good home support. Lives with daughter. PHYSICAL EXAM VITAL SIGNS: On Levophed 10 mcg per minute. Temperature 100.7, heart rate 67 and in paced rhythm on telemetry, respiratory rate 20, blood pressure 102/44, O2 sat 97% on ventilatory support, AC, ventilatory rate of 18. Tidal volume 500, PEEP of 5, FiO2 60%. GENERAL: Intubated, sedated. CHEST: Decreased breath sounds and scattered rales. CARDIOVASCULAR: Regular rate and rhythm. Crescendo. Systolic ejection murmur. No S3, no S4. ABDOMEN: Soft. EXTREMITIES: Trace edema. Heel protector is in place. STUDIES: White blood cells 6.2, hemoglobin 12.4, platelets 164,000. INR 1.2. Sodium 140, potassium 4.2, chloride 105, bicarbonate 25, BUN 18, creatinine 1.5, glucose 150. Lactic acid within normal reference range at 13.7. Hemoglobin A1c 6. Total bilirubin 0.9. AST 54, ALT 41, alk phos 69. CK as well as CK-MB within normal range times 3. Troponin-I within normal range times 4. BNP 467. Triglycerides 121, total cholesterol 180, LDL 111, HDL 45, amylase 56, lipase 86. TSH 1.03. Chest x-ray right basilar opacity compatible with aspiration pneumonitis. ASSESSMENT 1. Acute respiratory failure requiring ventilatory support. 2. Septic shock, on pressors. 3. Ytzpk-vr-wmqucbm systolic heart failure. 4. Coronary artery disease with history of remote bypass. 5. Status post [employer] automatic implantable cardioverter defibrillator. 6. History of asbestosis exposure. 7. Dementia. 8. Aspiration pneumonia. 9. History of transient ischemic attacks. RECOMMENDATIONS 1. Wean Levophed and decrease propofol to maintain a RASS of -1 to -2. 2. On Eliquis and amiodarone for atrial fibrillation, continue. 3. Add aspirin for history of coronary artery disease. 4. Antibiotics per primary service. Thank you for the opportunity to participate in the care of Mr. Lopez. Will follow while in the hospital. Job#: [id number] CQ
[2017-08-19] VITALS (73 sets, daily range): BP systolic 99–134; BP diastolic 43–86
[2017-08-19] MEDS: LEVOTHYROXINE SODIUM 75 MCG TAB PO SCH (05:42)
[2017-08-19] MEDS: LEVOTHYROXINE SODIUM 100 MCG TAB PO SCH (05:42)
[2017-08-19] MEDS: CLINDAMYCIN 600MG/D5W 50ML 50 ML IV SCH ×2 (05:42→12:18)
[2017-08-19 05:49] LABS: BASOPHILS % 0.4 % (0.0-1.0); EOSINOPHILS % 0.2 % (0.0-6.0); HEMATOCRIT 34.6 % (38.2-49.6); HEMOGLOBIN 11.7 g/dL (14.0-18.0); LYMPHOCYTES # (AUTO) 1.5 (1.0-3.2); MEAN CORPUSCULAR HEMOGLOBIN 31.8 pg (28-32); MEAN CORPUSCULAR HGB CONC 33.8 g/dL (31-35); MONOCYTES # (AUTO) 1.2 (0.2-0.8); MONOCYTES % 11.7 % (4.4-11.3); NEUTROPHILS # (AUTO) 7.1 (2.1-6.9); NEUTROPHILS % 72.3 % (38.7-80.0); PLATELET COUNT 135 x10e3/uL (140-360); RED BLOOD COUNT 3.68 x10e6/uL (4.3-5.7); RED CELL DISTRIBUTION WIDTH 14.7 % (11.7-14.4)
[2017-08-19 06:16] LABS: ALBUMIN 2.9 g/dL (3.5-5.0); ALBUMIN/GLOBULIN RATIO 0.8 (0.8-2.0); ANION GAP 13.4 mmol/L (8-16); CALCIUM 8.1 mg/dL (8.4-10.2); CREATININE, SERUM 1.51 mg/dL (0.72-1.25); POTASSIUM 3.4 mmol/L (3.5-5.1)
--- NOTE | 2017-08-19 07:05 | Diagnostic Imaging Report ---
EXAMINATION: CHEST SINGLE (PORTABLE) INDICATION: Respiratory failure COMPARISON: 07/18/2017 FINDINGS: TUBES and LINES: Endotracheal, NG tube and a ACD device are stable LUNGS: Lungs are not well inflated. There are bibasilar atelectasis. Confluent right lower lobe and into a lesser extent left lower lobe opacity compatible with atelectasis versus pneumonia PLEURA: No pleural effusion or pneumothorax. There is evidence of calcifications along the diaphragmatic pleura HEART AND MEDIASTINUM: Cardiac size is mildly enlarged. There are atherosclerotic calcifications within the aorta. Midline sternotomy wires are intact. BONES AND SOFT TISSUES: No acute osseous lesion. Soft tissues are unremarkable. UPPER ABDOMEN: No free air under the diaphragm. IMPRESSION: 1. Confluent bibasilar opacities right greater than left are compatible with atelectasis versus pneumonia 2. Calcifications along the diaphragmatic pleura suggest prior empyema or asbestos related pleural disease Signed by: Dr. Alejo Duncan M.D. on 08/19/2017 7:02 AM
[2017-08-19 07:27] LABS: BAND NEUTROPHILS % (MANUAL) 4 %; LYMPHOCYTES % (MANUAL) 10 % (19-48); MONOCYTES % (MANUAL) 7 % (3.4-9.0); NEUTROPHILS % (MANUAL) 74 % (40-74)
[2017-08-19 07:32] LABS: HYPOCHROMASIA SLIGHT; PLATELET ESTIMATE SLIGHTLY DECREASED; PLATELET MORPHOLOGY COMMENT NORMAL; RBC MORPHOLOGY COMMENT NORMAL
[2017-08-19 07:33] LABS: ANISOCYTOSIS SLIGHT
[2017-08-19] MEDS ORDERED: POTASSIUM CHLORIDE 20MEQ/15ML UDC NG ONE (08:00)
[2017-08-19 08:22] LABS: ABG HCO3 23 mmol/L (23-28); ABG PCO2 33 mmHg (41-51); ABG PH 7.45 (7.31-7.41); ABG PO2 80 mmHg (80-105)
[2017-08-19] MEDS: CARVEDILOL 3.125 MG TAB PO SCH ×2 (08:53→16:15)
[2017-08-19] MEDS: PANTOPRAZOLE SODIUM 40 MG SUSPDR.PKT PO SCH ×2 (08:57→16:25)
[2017-08-19] MEDS: CLOPIDOGREL BISULFATE 75 MG TAB PO SCH (08:57)
[2017-08-19] MEDS: AMIODARONE HCL 200 MG TAB PO SCH (08:57)
[2017-08-19] MEDS ORDERED: APIXAB 2.5 MG TABLET PO SCH (09:00)
[2017-08-19] MEDS ORDERED: LOSARTAN POTASSIUM 25 MG TAB PO SCH (09:00)
[2017-08-19] MEDS ORDERED: NON-FORMULARY MEDICATION ([Eliquis] 2.5 MG) PO SCH (09:00)
--- NOTE | 2017-08-19 10:38 | Progress Note ---
DATE: August 19, 2017 Ms. 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 He had an episode of aspiration. He required oral intubation. He was transferred to ICU. PHYSICAL EXAMINATION GENERAL: Today, he is on sedation, but he had opened his eyes. VITAL SIGNS: Temperature is 98 and blood pressure is 109/45. HEART: Regular rate. LUNGS: Poor inspiratory effort. ABDOMEN: Soft. LABS: On the blood work, white count 9.86, hemoglobin 11.7, hematocrit 34.6. Potassium 3.4, creatinine is 1.51, glucose is 218. Blood gas shows pH of 7.45 with oxygen 80%. Stool lactoferrin was positive. C. diff was negative. Blood cultures and sputum cultures are pending. Chest x-ray today shows bibasilar opacities, right greater than left. ADMITTING DIAGNOSES 1. Acute respiratory failure. 2. Bilateral aspiration pneumonia. 3. Coronary artery disease, status post coronary artery bypass graft. 4. Acute on chronic systolic congestive heart failure with ejection fraction of 25%. 5. Presence of permanent pacemaker and defibrillator. 6. History of hypertension. 7. History of pneumoconiosis. 8. Hyperlipidemia. 9. History of a stroke. 10. Possible diabetes. The plan at the present time is patient has been evaluated by plastic extruding machine operator and lead principal technical architect. He remains intubated. Extubation, weaning off as per pulmonary and as tolerated by patient. Continue Levophed as needed. Patient is on amiodarone and Eliquis for atrial fibrillation. Continue aspirin. Continue IV antibiotics. All this was discussed with family member at bedside. All questions were answered to satisfaction. I spent more than 30 minutes examining patient, reviewing overnight events, x-rays, lab results, and discussing plan of care with family. Job#: [id number] SIMÓN
[2017-08-19] MEDS: CEFTRIAXONE SOD 1 GM VIAL IV SCH (12:18)
--- NOTE | 2017-08-19 13:03 | Progress Note ---
DATE: August 19, 2017 PULMONARY/CRITICAL CARE PROGRESS NOTE SUBJECTIVE: The patient continues to require Levophed for blood pressure control. He remains on an assist-control mode of ventilation. He is receiving IV antibiotics along with the enteral feedings. OBJECTIVE VITAL SIGNS: The blood pressure is 109/45 and the O2 saturation is 94%. The pulse is 66. Patient is currently on a pressure-regulated volume control and the tidal volume is set at 480 mL. The respiratory rate is set at 16 and the FIO2 is 40%. He remains on 4 mcg of Levophed. HEENT: Examination shows no facial swelling or erythema. There is an oral feeding tube in place. There is an oral endotracheal tube in place. LYMPHATIC: Examination shows no submandibular, cervical or supraclavicular adenopathy. CARDIAC: Exam reveals a regular rate and rhythm with a normal S1 and S2. There are no murmurs or rubs. LUNGS: Auscultation reveals rhonchorous breath sounds bilaterally. There is no wheezing. ABDOMEN: Soft and nontender. There is no rebound or guarding. EXTREMITIES: Examination shows no leg edema or calf tenderness. There is no cyanosis or clubbing. SKIN: Examination shows no rashes. NEUROLOGICAL: Exam shows the patient to be sedated but no focal abnormalities. RADIOGRAPHIC DATA: Chest x-ray shows bibasilar opacities consistent with pneumonia. LABORATORY DATA: White blood cell count is 9.86 and the hemoglobin is 11.7. The platelet count is 135. Creatinine is 1.51 and the BNP is 467.8. IMPRESSION 1. Aspiration pneumonia with septic shock. 2. Mqzgg-cy-qrggpke respiratory failure. 1. Chronic systolic congestive heart failure. 2. Acute kidney injury. 3. Pneumoconiosis. PLAN 1. Continue to wean Levophed. 2. Continue current antibiotics. 3. Continue enteral feedings. 4. DVT prophylaxis. 5. Continue to wean ventilator as tolerated. We will attempt a spontaneous breathing trial tomorrow morning. Case discussed with nursing. Discussed the case with Dr. Carr and Dr. Sanches yesterday. Greater than 35 minutes in direct critical care time during 2 separate visits, one at 8 a.m. and one at 12:30 p.m. Job#: [id number] EV
[2017-08-19] MEDS: LEVOFLOXACIN 250MG/D5W 50ML 50 ML IV SCH (14:25)
[2017-08-19] MEDS: VANCOMYCIN 1GM/NS 250 ML 250 ML IV SCH (16:25)
[2017-08-19] MEDS: CEFEPIME HCL 1 GM VIAL IV SCH (16:25)
--- NOTE | 2017-08-19 17:28 | Consultation ---
DATE OF CONSULTATION: August 19, 2017 HISTORY OF PRESENT ILLNESS: Mr. Lopez is an 87-year-old gentleman who apparently comes in with nausea and vomiting, not doing well for 2 or 3 days. Patient was brought to the emergency room and he was vomiting. He had to be intubated. The patient did have aspiration pneumonia. Patient was recently in the hospital. He does have underlying history of coronary artery disease, CABG, arrhythmia status post pacemaker, hypertension, hyperlipidemia and stroke. A very ill patient. He was brought in and currently is intubated. The patient who has history of coronary disease, hypertension, arrhythmia, CABG, defibrillator, stroke in 2018, hypertension, hyperlipidemia, pneumoconiosis, diabetes. ALLERGIES: NKA. SOCIAL HISTORY: No smoking, drug abuse, alcohol abuse. FAMILY HISTORY: Hypertension. REVIEW OF SYSTEMS: Could not be obtained. MEDICATION: List reviewed. LABORATORY DATA: Reviewed. His white count 6.2, hemoglobin 12.4, hematocrit 37. Blood gas showed pH 7.24, pCO2 of 53, sodium 140, potassium 4.2, BNP 167. The patient is currently intubated. IMPRESSION 1. Respiratory failure. 2. Aspiration pneumonia with concern he has been in several hospital visits, and concerned about pathogen related to healthcare-associated pneumonia. 3. Chronic kidney disease. 4. Coronary artery disease. 5. Hypertension. 6. Congestive heart failure. Will put the patient on vancomycin and cefepime and discontinue clindamycin and Levaquin. Will adjust for kidney function. Continue supportive care. Will check CBC, will check chem panel. Discussed with the family. Will follow. Job#: [id number]
--- NOTE | 2017-08-19 18:30 | Progress Note ---
DATE: August 19, 2017 CARDIOLOGY PROGRESS NOTE SUBJECTIVE: Intubated, awake and calm on light sedation. Telemetry in paced rhythm. OBJECTIVE VITAL SIGNS: Temperature 99.7, heart rate 73, blood pressure 102/50, O2 sat 98% on vent support. GENERAL: No acute distress. Alert. NECK: No JVD. CHEST: With decreased breath sounds and coarse rhonchi. CARDIOVASCULAR: Regular rate and rhythm. Normal S1 and S2. No S3, no S4. Systolic ejection murmur /6. ABDOMEN: Soft, nontender. EXTREMITIES: Trace edema. MEDICATIONS: Now off Levophed, no pressors. On vancomycin and cefepime. Eliquis 2.5 mg daily was switched to twice daily dosing. Clopidogrel 75 mg daily. Amiodarone 100 mg daily. Colestipol 1 g nightly. Losartan 25 mg daily. Carvedilol 3.125 mg b.i.d. Those 2 medications not provided today given recent hypotension. LABS: White blood cells 9.8, hemoglobin 11.7, platelets 135. Sodium 138, potassium 3.4, chloride 105, bicarbonate 23, BUN 19, creatinine 1.5, glucose 218. AST 32, ALT 32, alkaline phosphatase 49. Total protein 6.5, albumin 2.9. ABG 7.45/33/80. Blood culture no growth after 24 hours. Gram sputum, a few gram-positive cocci in pairs and chains. Today's chest x-ray: Confluent vascular opacities right greater than left compatible with atelectasis versus pneumonia. Calcifications along the diaphragmatic pleura suggest prior empyema or asbestos-related pleural disease. ASSESSMENT 1. Acute respiratory failure. 2. Aspiration pneumonia. 3. Chronic kidney disease. 4. Coronary artery disease, status post aortocoronary bypass in the Nineties. 5. Hypertension. 6. Wdkks-cx-dzembrx mixed systolic and diastolic heart failure. 7. Status post [employer] automatic implantable cardioverter-defibrillator. 8. History of asbestosis exposure. 9. Dementia. 10. History of transient ischemic attacks. 11. Status post pressors for septic shock, now improving. RECOMMENDATIONS 1. Discontinue ARB and continue low-dose beta dayana with holding parameters. 2. Uptitrate Eliquis to b.i.d. dosing. 3. Continue rest of cardiovascular medications. Job#: [id number] EV
[2017-08-19] MEDS: PROPOFOL IV EMULSION 10MG/ML 100 ML IV SCH (21:01)
[2017-08-19] MEDS: APIXABAN 5 MG TABLET PO SCH (21:37)
[2017-08-19] MEDS: SERTRALINE HCL 50 MG TAB PO SCH (21:37)
[2017-08-19] MEDS: COLESTIPOL HCL 1 G TAB PO SCH (21:37)
[2017-08-20] VITALS (48 sets, daily range): BP systolic 107–147; BP diastolic 42–68
[2017-08-20] MEDS: PROPOFOL IV EMULSION 10MG/ML 100 ML IV SCH ×3 (01:41→23:00)
[2017-08-20] MEDS: CEFEPIME HCL 1 GM VIAL IV SCH ×2 (04:21→15:55)
[2017-08-20] MEDS: LEVOTHYROXINE SODIUM 75 MCG TAB PO SCH (05:43)
[2017-08-20] MEDS: LEVOTHYROXINE SODIUM 100 MCG TAB PO SCH (05:43)
[2017-08-20 05:53] LABS: BASOPHILS % 0.3 % (0.0-1.0); EOSINOPHILS % 0.3 % (0.0-6.0); HEMATOCRIT 31.4 % (38.2-49.6); HEMOGLOBIN 10.4 g/dL (14.0-18.0); LYMPHOCYTES # (AUTO) 0.7 (1.0-3.2); LYMPHOCYTES % 10.6 % (18.0-39.1); MEAN CORPUSCULAR HEMOGLOBIN 31.4 pg (28-32); MEAN CORPUSCULAR HGB CONC 33.1 g/dL (31-35); MEAN CORPUSCULAR VOLUME 94.9 fL (81-99); MONOCYTES # (AUTO) 0.5 (0.2-0.8); MONOCYTES % 7.4 % (4.4-11.3); NEUTROPHILS # (AUTO) 5.6 (2.1-6.9); NEUTROPHILS % 80.5 % (38.7-80.0); PLATELET COUNT 118 x10e3/uL (140-360); RED BLOOD COUNT 3.31 x10e6/uL (4.3-5.7); RED CELL DISTRIBUTION WIDTH 14.9 % (11.7-14.4)
[2017-08-20 06:15] LABS: ALBUMIN 2.8 g/dL (3.5-5.0); ALBUMIN/GLOBULIN RATIO 0.8 (0.8-2.0); ANION GAP 12.9 mmol/L (8-16); CALCIUM 8.2 mg/dL (8.4-10.2); CREATININE, SERUM 1.33 mg/dL (0.72-1.25); POTASSIUM 3.9 mmol/L (3.5-5.1)
--- NOTE | 2017-08-20 06:35 | Diagnostic Imaging Report ---
EXAMINATION: CHEST SINGLE (PORTABLE) INDICATION: Respiratory failure COMPARISON: 08/19/2017 FINDINGS: TUBES and LINES: Endotracheal, NG tube and a ACD device are stable LUNGS: Lungs are not well inflated. There are bibasilar atelectasis. Interval improvement in confluent right lower lobe and into a lesser extent left lower lobe opacity compatible with improving edema versus pneumonia PLEURA: No pleural effusion or pneumothorax. There is evidence of calcifications along the diaphragmatic pleura HEART AND MEDIASTINUM: Cardiac size is mildly enlarged. There are atherosclerotic calcifications within the aorta. Midline sternotomy wires are intact. BONES AND SOFT TISSUES: No acute osseous lesion. Soft tissues are unremarkable. UPPER ABDOMEN: No free air under the diaphragm. IMPRESSION: 1. Improving confluent bibasilar opacities right greater than left are compatible with improving edema versus pneumonia 2. Calcifications along the diaphragmatic pleura suggest prior empyema or asbestos related pleural disease Signed by: Dr. Alejo Duncan M.D. on 08/20/2017 6:32 AM
[2017-08-20 08:12] LABS: BAND NEUTROPHILS % (MANUAL) 8 %; LYMPHOCYTES % (MANUAL) 7 % (19-48); MONOCYTES % (MANUAL) 4 % (3.4-9.0); NEUTROPHILS % (MANUAL) 81 % (40-74); PLATELET ESTIMATE SLIGHTLY DECREASED; PLATELET MORPHOLOGY COMMENT NORMAL
[2017-08-20 08:13] LABS: ANISOCYTOSIS SLIGHT; RBC MORPHOLOGY COMMENT NORMAL
[2017-08-20] MEDS: APIXABAN 5 MG TABLET PO SCH ×2 (08:49→20:28)
[2017-08-20] MEDS: PANTOPRAZOLE SODIUM 40 MG SUSPDR.PKT PO SCH ×2 (08:49→16:53)
[2017-08-20] MEDS: CARVEDILOL 3.125 MG TAB PO SCH ×2 (08:49→16:52)
[2017-08-20] MEDS: CLOPIDOGREL BISULFATE 75 MG TAB PO SCH (08:49)
[2017-08-20] MEDS: AMIODARONE HCL 200 MG TAB PO SCH (08:49)
[2017-08-20 10:02] LABS: ABG HCO3 24 mmol/L (23-28); ABG PCO2 34 mmHg (41-51); ABG PH 7.45 (7.31-7.41); ABG PO2 67 mmHg (80-105)
--- NOTE | 2017-08-20 10:47 | Progress Note ---
DATE: August 20, 2017 Mr. Lopez is an 87-year-old man with multiple medical problems, coronary artery disease, status post CABG, chronic systolic CHF with ejection fraction of 25% to 30%, permanent pacemaker, defibrillator, diabetes, hyperlipidemia, pneumoconiosis, exposure to asbestosis. He was brought to the emergency room with vomiting and changes in mental status. The patient had an episode of aspiration. He required oral intubation. He is in the ICU at the present time. PHYSICAL EXAMINATION GENERAL: He is awake. He is alert. VITAL SIGNS: Temperature is 98.8, and blood pressure is 133/65. HEART: Regular rate. LUNGS: Poor inspiratory effort. ABDOMEN: Distended and soft. LOWER EXTREMITIES: No edema. LABS: On the blood work, potassium 3.9, creatinine 1.33, glucose 211, white count 7, hemoglobin 10.4, hematocrit 31.4. Blood cultures so far have been negative. Chest x-ray today shows improving bibasilar opacities, right greater than left, compatible with improving edema versus pneumonia. ASSESSMENT AND PLAN 1. Acute respiratory failure. 2. Bilateral aspiration pneumonia. 3. Coronary artery disease, status post coronary artery bypass graft. 4. Fllio-kc-znayufo systolic congestive heart failure with ejection fraction of 25%. 5. Presence of permanent pacemaker and defibrillator. 6. Hypertension. 7. Pneumoconiosis. 8. Hyperlipidemia. 9. History of cerebrovascular accident. 10. Diabetes. The plan at the present time is to wean the patient as tolerated. Continue IV antibiotics. Continue Eliquis twice a day. The ARBs have been discontinued, and low dose of beta dayana was started on him. All of this was discussed with daughter at bedside, and all questions were answered to satisfaction. I spent more than 35 minutes examining the patient, reviewing overnight events, x-rays, blood work, and discussing plan of care with family. Job#: [id number]
--- NOTE | 2017-08-20 14:23 | Progress Note ---
DATE: August 20, 2017 PULMONARY/CRITICAL CARE PROGRESS NOTE SUBJECTIVE: The patient is off pressors. He continues to be on antibiotics. The patient was on a pressure support of 8 and CPAP of 5 this morning. He tolerated it for an hour, but his respiratory rate increased into the low 30s. He was placed back on pressure-regulated volume control. His sedation was restarted. The patient continues to receive enteral feedings. OBJECTIVE VITAL SIGNS: Stable at this time. His mean arterial blood pressure is greater than 60. He is back on the pressure-regulated volume control. He has an oral endotracheal tube in place. He has a feeding tube in place. LYMPHATIC: Examination shows no submandibular, cervical or supraclavicular adenopathy. CARDIAC: Regular rate and rhythm with normal S1 and S2. There are no murmurs or rubs. LUNGS: Auscultation reveals clear breath sounds bilaterally. There are rhonchi. ABDOMEN: Soft and nontender. There is no rebound or guarding. EXTREMITIES: Examination shows 1+ edema. RADIOGRAPHIC DATA: Bilateral infiltrates and some pleural changes consistent with prior asbestos exposure. IMPRESSION 1. Aspiration pneumonia with septic shock. 2. Papnn-hv-zyooyxl respiratory failure. 3. Acute kidney injury. 4. Pneumoconiosis. PLAN 1. Reattempt spontaneous breathing trial tomorrow. 2. Continue enteral feedings. 3. DVT prophylaxis. 4. Continue antibiotics. 5. Case discussed with the family, nursing and respiratory. 6. Greater than 35 minutes in direct critical care time during 2 separate visits, one at 8:30 a.m. and one at 2 p.m. Job#: [id number]
[2017-08-20] MEDS: VANCOMYCIN 1GM/NS 250 ML 250 ML IV SCH (15:55)
[2017-08-20] MEDS: COLESTIPOL HCL 1 G TAB PO SCH (20:28)
[2017-08-20] MEDS: SERTRALINE HCL 50 MG TAB PO SCH (20:28)
--- NOTE | 2017-08-20 20:39 | Progress Note ---
DATE: August 20, 2017 CARDIOLOGY PROGRESS NOTE SUBJECTIVE: Intubated and sedated, off pressors. On telemetry in paced rhythm. OBJECTIVE VITAL SIGNS: Reviewed and stable. Temperature 99.7, heart rate 66, respiratory rate 18, blood pressure 115/46, O2 sat 99% on vent support. GENERAL: Intubated and sedated. CHEST: Decreased breath sounds. CARDIOVASCULAR: Regular rate and rhythm. Normal S1 and S2. No S3, no S4. ABDOMEN: Soft. EXTREMITIES: Trace edema. CARDIOVASCULAR MEDICATIONS: Reviewed. 1. On Eliquis 5 mg every 12 hours. 2. Vancomycin. 3. Cefepime. 4. Amiodarone 100 mg daily. 5. Carvedilol 3.125 mg q.12 h withholding parameters today not given. White blood cells 7, hemoglobin 10.4, platelets 118,000. Sodium 137, potassium 3.9, chloride 105, bicarbonate 23, BUN 20, creatinine 1.33, glucose 151, calcium 8.7, total bilirubin 0.5, AST 20, ALT 24, alk phos 45, total protein 6.4, albumin 2.8. ASSESSMENT 1. Acute respiratory failure. 2. Aspiration pneumonia. 3. Chronic kidney disease. 4. Coronary artery disease, status post aortocoronary bypass in the 90s. 5. Hypertension. 6. Lrnnq-ni-zpdnruf mixed systolic and diastolic heart failure. 7. Status post [employer] automatic implantable cardioverter-defibrillator. 8. History of asbestosis exposure. 9. Dementia. 10. History of transient ischemic attacks. 11. Status post pressors for septic shock, now improved. RECOMMENDATIONS 1. Continue current cardiovascular medications. 2. Wean vent as tolerated. Defer to Dr. Flores. Job#: [id number] CQ
[2017-08-21] VITALS (41 sets, daily range): BP systolic 93–132; BP diastolic 38–74
[2017-08-21] MEDS: PROPOFOL IV EMULSION 10MG/ML 100 ML IV SCH ×2 (03:30→08:45)
[2017-08-21] MEDS: CEFEPIME HCL 1 GM VIAL IV SCH ×2 (04:49→16:40)
[2017-08-21 05:14] LABS: BASOPHILS % 0.3 % (0.0-1.0); EOSINOPHILS # (AUTO) 0.1 (0.0-0.4); EOSINOPHILS % 2.2 % (0.0-6.0); HEMATOCRIT 31.9 % (38.2-49.6); HEMOGLOBIN 10.6 g/dL (14.0-18.0); MEAN CORPUSCULAR HEMOGLOBIN 31.3 pg (28-32); MEAN CORPUSCULAR HGB CONC 33.2 g/dL (31-35); MEAN CORPUSCULAR VOLUME 94.1 fL (81-99); MONOCYTES # (AUTO) 0.6 (0.2-0.8); MONOCYTES % 8.4 % (4.4-11.3); NEUTROPHILS # (AUTO) 4.7 (2.1-6.9); NEUTROPHILS % 72.5 % (38.7-80.0); PLATELET COUNT 114 x10e3/uL (140-360); RED BLOOD COUNT 3.39 x10e6/uL (4.3-5.7); RED CELL DISTRIBUTION WIDTH 14.9 % (11.7-14.4)
[2017-08-21] MEDS: LEVOTHYROXINE SODIUM 75 MCG TAB PO SCH (05:25)
[2017-08-21] MEDS: LEVOTHYROXINE SODIUM 100 MCG TAB PO SCH (05:25)
[2017-08-21 05:32] LABS: ALANINE AMINOTRANSFERASE 20 IU/L (0-55); ALBUMIN 2.6 g/dL (3.5-5.0); ALBUMIN/GLOBULIN RATIO 0.7 (0.8-2.0); ALKALINE PHOSPHATASE 44 IU/L (40-150); ANION GAP 12.5 mmol/L (8-16); BLOOD UREA NITROGEN 19 mg/dL (7-26); BUN/CREATININE RATIO 18 (6-25); CALCIUM 8.3 mg/dL (8.4-10.2); CARBON DIOXIDE 23 mmol/L (22-29); CHLORIDE 107 mmol/L (98-107); CREATININE, SERUM 1.07 mg/dL (0.72-1.25); EST GLOMERULAR FILTRATION RATE > 60 ML/MIN (60-); GLUCOSE 132 mg/dL (74-118); POTASSIUM 3.5 mmol/L (3.5-5.1); SODIUM 139 mmol/L (136-145)
--- NOTE | 2017-08-21 06:24 | Diagnostic Imaging Report ---
EXAMINATION: CHEST SINGLE (PORTABLE) INDICATION: Respiratory failure COMPARISON: 08/20/2017 FINDINGS: TUBES and LINES: Endotracheal, NG tube and a ACD device are stable LUNGS: Lungs are not well inflated. There are bibasilar atelectasis. Stable confluent right lower lobe and into a lesser extent left lower lobe opacity compatible with improving edema versus pneumonia PLEURA: No pleural effusion or pneumothorax. There is evidence of calcifications along the diaphragmatic pleura HEART AND MEDIASTINUM: Cardiac size is mildly enlarged. There are atherosclerotic calcifications within the aorta. Midline sternotomy wires are intact. BONES AND SOFT TISSUES: No acute osseous lesion. Soft tissues are unremarkable. UPPER ABDOMEN: No free air under the diaphragm. IMPRESSION: 1. Stable confluent bibasilar opacities right greater than left are compatible with improving edema versus pneumonia 2. Calcifications along the diaphragmatic pleura suggest prior empyema or asbestos related pleural disease Signed by: Dr. Alejo Duncan M.D. on 08/21/2017 6:21 AM
[2017-08-21] MEDS: CLOPIDOGREL BISULFATE 75 MG TAB PO SCH (09:26)
[2017-08-21] MEDS: APIXABAN 5 MG TABLET PO SCH ×2 (09:26→20:22)
[2017-08-21] MEDS: CARVEDILOL 3.125 MG TAB PO SCH ×2 (09:26→17:00)
[2017-08-21] MEDS: PANTOPRAZOLE SODIUM 40 MG SUSPDR.PKT PO SCH ×2 (09:26→17:00)
[2017-08-21] MEDS: AMIODARONE HCL 200 MG TAB PO SCH (09:27)
[2017-08-21 10:12] LABS: ABG HCO3 25 mmol/L (23-28); ABG PCO2 41 mmHg (41-51); ABG PH 7.39 (7.31-7.41); ABG PO2 79 mmHg (80-105)
--- NOTE | 2017-08-21 12:10 | Progress Note ---
DATE: August 21, 2017 PULMONARY/CRITICAL CARE PROGRESS NOTE SUBJECTIVE: Patient was placed on pressure support of 8 and CPAP of 5 this morning. The enteral feedings and sedation were held. He has a spontaneous respiratory rate of 24 to 26 with tidal volumes at 300 to 350 mL. He is awake. We are proceeding with extubation. OBJECTIVE VITAL SIGNS: The blood pressure is 129/69 and O2 saturation is 95%. The heart rate is 80. HEENT: Shows no facial swelling or erythema. The nasal mucosa is normal. The oropharynx is normal. There is an oroendotracheal tube in place. LYMPHATIC: Shows no submandibular, cervical, or supraclavicular adenopathy. CARDIAC: Regular rate and rhythm with normal S1 and S2. There are no murmurs or rubs. LUNGS: Auscultation of lungs reveals clear breath sounds bilaterally. There is no wheezing. ABDOMEN: Soft and nontender. There is no rebound or guarding. EXTREMITIES: No leg edema. LABORATORY DATA: The white blood cell count is 6.5 and hemoglobin is 10.6. The platelet count is 114. BUN to creatinine ratio is 19 to 1.07. The blood gas is 7.4, 41, 79, and 25. IMPRESSION 1. Acbqe-ts-tmznzvf respiratory failure. 2. Aspiration pneumonia with septic shock. 3. History of atrial fibrillation. 4. Chronic systolic heart failure. PLAN 1. Proceed with extubation. 2. Continue current antibiotics. 3. Stop sedatives. 4. Stop enteral feedings. 1. Swallowing evaluation. Case discussed with the family, respiratory nursing. Greater than 35 minutes in direct critical care time during 2 separate visits, one at 07:30 a.m. and one at 11:00 a.m. I was also present during extubation. Job#: [id number] AMOS
[2017-08-21] MEDS ORDERED: ETOMIDATE 2 MG/ML 10 ML INJ IV ONE (13:00)
[2017-08-21] MEDS: VANCOMYCIN 1GM/NS 250 ML 250 ML IV SCH (16:40)
--- NOTE | 2017-08-21 18:24 | Progress Note ---
DATE: August 21, 2017 CARDIOLOGY PROGRESS NOTE SUBJECTIVE: Extubated. No current complaints. OBJECTIVE VITAL SIGNS: Temperature 99.9, heart rate 74, respiratory rate 20, blood pressure 104/56, O2 sat 96% on nasal cannula at 5 liters per minute. GENERAL: In no acute distress. CHEST: Clear to auscultation. CARDIOVASCULAR: Regular rate and rhythm. Normal S1 and S2. Systolic ejection murmur. No S3. Sternotomy scar. ABDOMEN: Soft. EXTREMITIES: Trace edema. CARDIOVASCULAR MEDICATIONS 1. Amiodarone 100 mg daily. 2. Apixaban 5 mg q.12 h. 3. Clopidogrel 75 mg daily. 4. Carvedilol 3.125 mg q.12 h., held today. She was recently extubated. Pending swallow eval at this point. LABS: White blood cells 6.5, hemoglobin 10.6, platelets 114. Sodium 139, potassium 3.5, chloride 107, bicarbonate 107, BUN 19, creatinine 1.07. Glucose 156. TELEMETRY: Sinus rhythm. CHEST X-RAY: Stable confluent bibasilar opacities, right greater than left, compatible with improving edema versus pneumonia. Calcifications along the diaphragmatic pleura suggest prior empyema or asbestos-related pleural disease. ASSESSMENT 1. Acute respiratory failure, now status post ventilatory support, extubated today. 2. Aspiration pneumonia. 3. Chronic kidney disease. 4. Coronary artery disease with history of aortocoronary bypass in the . 5. Hypertension. 6. Vupec-qg-aceutui mixed systolic and diastolic heart failure. 7. Status post [employer] automatic implantable cardioverter-defibrillator. 8. 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 9. Dementia. 10. History of transient ischemic attacks. 11. Status post pressors for septic shock, now resolved. RECOMMENDATIONS 1. Continue current cardiovascular medications. Once swallow eval is complete and if adequate, can resume beta dayana. 2. Continue antibiotics. 3. Pulmonary toilet. Job#: [id number]
[2017-08-21] MEDS: COLESTIPOL HCL 1 G TAB PO SCH (20:22)
[2017-08-21] MEDS: SERTRALINE HCL 50 MG TAB PO SCH (20:22)
[2017-08-22] VITALS (82 sets, daily range): BP systolic 72–143; BP diastolic 35–77
[2017-08-22] MEDS: VANCOMYCIN 1GM/NS 250 ML 250 ML IV SCH ×2 (04:30→15:26)
[2017-08-22] MEDS: CEFEPIME HCL 1 GM VIAL IV SCH ×2 (04:30→15:31)
[2017-08-22 05:34] LABS: BASOPHILS # (AUTO) 0.1 (0.0-0.1); BASOPHILS % 0.5 % (0.0-1.0); EOSINOPHILS # (AUTO) 0.2 (0.0-0.4); EOSINOPHILS % 2.5 % (0.0-6.0); HEMATOCRIT 37.2 % (38.2-49.6); HEMOGLOBIN 11.9 g/dL (14.0-18.0); LYMPHOCYTES # (AUTO) 2.2 (1.0-3.2); MEAN CORPUSCULAR VOLUME 96.9 fL (81-99); MONOCYTES # (AUTO) 0.9 (0.2-0.8); MONOCYTES % 9.8 % (4.4-11.3); NEUTROPHILS # (AUTO) 5.9 (2.1-6.9); NEUTROPHILS % 62.8 % (38.7-80.0); PLATELET COUNT 185 x10e3/uL (140-360); RED BLOOD COUNT 3.84 x10e6/uL (4.3-5.7)
[2017-08-22 05:49] LABS: ALANINE AMINOTRANSFERASE 24 IU/L (0-55); ALBUMIN 2.9 g/dL (3.5-5.0); ALBUMIN/GLOBULIN RATIO 0.7 (0.8-2.0); ALKALINE PHOSPHATASE 55 IU/L (40-150); ANION GAP 16.1 mmol/L (8-16); BLOOD UREA NITROGEN 20 mg/dL (7-26); BUN/CREATININE RATIO 18 (6-25); CALCIUM 8.9 mg/dL (8.4-10.2); CARBON DIOXIDE 23 mmol/L (22-29); CHLORIDE 108 mmol/L (98-107); EST GLOMERULAR FILTRATION RATE > 60 ML/MIN (60-); GLUCOSE 158 mg/dL (74-118); POTASSIUM 4.1 mmol/L (3.5-5.1); SODIUM 143 mmol/L (136-145)
[2017-08-22] MEDS: LEVOTHYROXINE SODIUM 75 MCG TAB PO SCH (06:00)
[2017-08-22] MEDS: LEVOTHYROXINE SODIUM 100 MCG TAB PO SCH (06:00)
[2017-08-22] MEDS ORDERED: METHYLPREDNISOLONE SOD SUCC 125 MG/2ML VIAL IV STA (06:05)
[2017-08-22] MEDS ORDERED: METHYLPREDNISOLONE SOD SUCC 125 MG/2ML VIAL ONE (06:26)
--- NOTE | 2017-08-22 06:41 | Diagnostic Imaging Report ---
EXAMINATION: CHEST SINGLE (PORTABLE) INDICATION: Aspiration pneumonia, extubated and 08/21/2017 COMPARISON: 08/21/2017 FINDINGS: TUBES and LINES: Endotracheal and NG tube have been removed. Right upper extremity PICC line remains stable with tip overlying the SVC. The ICD is stable. LUNGS: Lungs are not well inflated. There are bibasilar atelectasis. Increased diffuse bilateral airspace opacities. PLEURA: No pleural effusion or pneumothorax. There is evidence of calcifications along the diaphragmatic pleura HEART AND MEDIASTINUM: Cardiac size is mildly enlarged. There are atherosclerotic calcifications within the aorta. Midline sternotomy wires are intact. BONES AND SOFT TISSUES: No acute osseous lesion. Soft tissues are unremarkable. UPPER ABDOMEN: No free air under the diaphragm. IMPRESSION: Interval increase in confluent bilateral airspace opacities compatible with fluid overload. Signed by: Dr. Alejo Duncan M.D. on 08/22/2017 6:37 AM
[2017-08-22] MEDS: ALBUTEROL SULF 0.083% NEB SOLN 3 ML NEB NEB PRN ×2 (06:50→14:25)
[2017-08-22] MEDS ORDERED: BENZOCAINE/TETRACAINE/BUTAMBEN AERO SPRAY 56 GM CAN ONE (06:53)
[2017-08-22] MEDS ORDERED: FUROSEMIDE INJ 10 MG/ML 4 ML VIAL IV STA (07:07)
[2017-08-22] MEDS ORDERED: PROPOFOL IV EMULSION 10MG/ML 100 ML ONE (07:09)
[2017-08-22 07:43] LABS: ABG HCO3 21 mmol/L (23-28); ABG PCO2 48 mmHg (41-51); ABG PH 7.25 (7.31-7.41); ABG PO2 68 mmHg (80-105)
--- NOTE | 2017-08-22 08:11 | Diagnostic Imaging Report ---
EXAM: Single AP view of the chest (Portable). COMPARISON: 08/22/2017 INDICATION: \S\ett placement \[id number] \S\[id number] FINDINGS: Single portable AP view of the chest. The visualized bones and soft tissues, cardiac silhouette lungs, pleura appear unchanged. Status post median sternotomy. IMPRESSION: 1. Lines/tubes: * Interval placement of an endotracheal tube with tip at the level of T4 vertebral body, 6.4 cm above the fani. * Unchanged 2-lead ICD with leads overlying the right atrial appendage, right ventricle, and coronary sinus. Additional abandoned right ventricular lead and lead coiling around the device. * Right PICC with tip overlying the upper SVC, unchanged. 2. Bilateral pulmonary edema with stable cardiomegaly. Signed by: Dr. Carolina Sims M.D. on 08/22/2017 8:07 AM
[2017-08-22] MEDS: CARVEDILOL 3.125 MG TAB PO SCH ×2 (09:00→15:31)
[2017-08-22 09:35] LABS: ABG HCO3 21 mmol/L (23-28); ABG PCO2 39 mmHg (41-51); ABG PH 7.33 (7.31-7.41); ABG PO2 83 mmHg (80-105)
--- NOTE | 2017-08-22 10:01 | Diagnostic Imaging Report ---
EXAM: Abdomen 1 Views INDICATION: \S\ngt placement \[id number] \S\[id number] COMPARISON: Chest radiograph 08/22/2017 FINDINGS: Interval placement of a NG/OG-tube, which is looped and overlying the gastric body and tip pointing towards the gastroesophageal junction. Mild of stool in the colon. No dilated loops of small bowel. No renal calculi. No abnormal soft tissue masses. Mild degenerative changes in the lumbar spine and pelvis. Partially visualized median sternotomy wires. IMPRESSION: NG/OG-tube overlying the gastric body, with tip pointing towards the gastroesophageal junction. Recommend repositioning. Signed by: Dr. Carolina Sims M.D. on 08/22/2017 9:58 AM
--- NOTE | 2017-08-22 12:09 | Diagnostic Imaging Report ---
EXAM: Abdomen 1 Views INDICATION: \S\REPOSITION ETT \[id number] \S\[id number] COMPARISON: KUB 08/22/2017 FINDINGS: Interval repositioning of a NG/OG-tube, with tip within the gastric body, in a better position when compared to prior exam. Additional linear metallic density overlying the medial left upper quadrant of unclear location. This appears to be from the NG/OG-tube. Partially visualized pacemaker leads. Mild of stool in the colon. No dilated loops of small bowel. No renal calculi. No abnormal soft tissue masses. Mild degenerative changes in the lumbar spine and pelvis. Partially visualized median sternotomy wires. IMPRESSION: NG/OG-tube has been repositioning with tip now overlying the gastric body, better position when compared to prior exam. Additional metastatic linear density overlying the medial left upper quadrant, separate from the NG tube, of uncertain location. Recommend follow-up on subsequent exam. Signed by: Dr. Carolina Sims M.D. on 08/22/2017 12:06 PM
--- NOTE | 2017-08-22 12:10 | Diagnostic Imaging Report ---
EXAM: Single AP view of the chest (Portable). COMPARISON: KUB 08/22/2017 and chest radiograph 08/22/2017 INDICATION: \S\REPOSITION ETT \[id number] \S\[id number] FINDINGS: Single portable AP view of the chest. The visualized bones and soft tissues, cardiac silhouette lungs, pleura appear unchanged. Status post median sternotomy. IMPRESSION: 1. Lines/tubes: * Interval repositioning of the endotracheal tube with tip at the level of T5 vertebral body, 5.0 cm above the fani. * Unchanged 2-lead ICD with leads overlying the right atrial appendage, right ventricle, and coronary sinus. Additional abandoned right ventricular lead and lead coiling around the device. * Right PICC with tip overlying the upper SVC, unchanged. * Infradiaphragmatic NG/O NG tube. 2. Unchanged bilateral pulmonary edema and cardiomegaly. Signed by: Dr. Carolina Sims M.D. on 08/22/2017 12:07 PM
[2017-08-22] MEDS: PANTOPRAZOLE SODIUM 40 MG SUSPDR.PKT PO SCH ×2 (12:21→15:31)
[2017-08-22] MEDS: APIXABAN 5 MG TABLET PO SCH ×2 (12:21→21:13)
[2017-08-22] MEDS: CLOPIDOGREL BISULFATE 75 MG TAB PO SCH (12:21)
[2017-08-22] MEDS: AMIODARONE HCL 200 MG TAB PO SCH (12:21)
--- NOTE | 2017-08-22 12:34 | Operative Report ---
DATE OF PROCEDURE: August 22, 2017 PREOPERATIVE DIAGNOSIS: Pneumonia. POSTOPERATIVE DIAGNOSIS: Pneumonia. MEDICATIONS: Etomidate 16 mg IV and lidocaine spray to the oropharynx. CONSENT: Procedure was emergent because of worsening respiratory failure. INDICATIONS: The patient had worsening tachypnea and congestion. ABG showed recurrent respiratory acidosis with a pH of 7.25 and CO2 of 48. PROCEDURE: The patient was placed in a supine position. He was given lidocaine spray to anesthetize the oropharynx and glottis. He was preoxygenated with an Ambu bag and ventilation to a saturation of 96%. Etomidate 16 mg IV was given. The GlideScope was used to visualize the glottis. A 7.5 endotracheal tube was passed on the 1st attempt. There were good CO2 return and equal breath sounds bilaterally. The saturation remained above 90%, and the blood pressure remained stable throughout the procedure. COMPLICATIONS: None. Job#: [id number]
[2017-08-22] MEDS: PROPOFOL IV EMULSION 10MG/ML 100ML BTL IV PRN ×2 (13:41→21:04)
--- NOTE | 2017-08-22 15:18 | Progress Note ---
DATE: August 22, 2017 CARDIOLOGY PROGRESS NOTE SUBJECTIVE: Intubated again today for worsening saturation. Temperature 97.4, heart rate 63, respiratory rate 16, blood pressure 108/53, O2 sat 99% on vent support. OBJECTIVE GENERAL: Intubated and sedated. Decreased breath sounds at bilateral bases. CARDIOVASCULAR: Regular rate and rhythm. Normal S1 and S2. Systolic ejection murmur. ABDOMEN: Soft. EXTREMITIES: No edema. CARDIOVASCULAR MEDICATIONS 1. Eliquis 5 mg q.12 h. 2. Clopidogrel 75 mg daily. 3. Amiodarone 100 mg daily. 4. Carvedilol 3.125 mg every 12 hours, held today. LABS: White blood cells 9.3, hemoglobin 11.9, platelets 185, creatinine 1.1, potassium 4.3, bicarbonate 23. Chest x-ray today reveals unchanged bilateral pulmonary edema and cardiomegaly. ASSESSMENT 1. Acute respiratory failure requiring reintubation. 2. Aspiration pneumonia. 3. Chronic kidney disease. 4. Coronary artery disease with history of bypass in the . 5. Hypertension. 6. Zfgvz-fi-gojgdkc mid-systolic and diastolic heart failure status post [employer] automatic implantable cardioverter-defibrillator. 7. History of asbestosis. 8. Dementia. 9. History of transient ischemic attack. 10. Status post pressors for septic shock. RECOMMENDATIONS: Add diuretics. Continue IV antibiotics and supportive care. Job#: [id number]
[2017-08-22] MEDS ORDERED: FUROSEMIDE INJ 10 MG/ML 4 ML VIAL IV SCH (21:00)
[2017-08-22] MEDS: COLESTIPOL HCL 1 G TAB PO SCH (21:13)
[2017-08-22] MEDS: SERTRALINE HCL 50 MG TAB PO SCH (21:14)
[2017-08-23] VITALS (86 sets, daily range): BP systolic 95–127; BP diastolic 40–72
[2017-08-23] MEDS: PROPOFOL IV EMULSION 10MG/ML 100ML BTL IV PRN ×3 (01:27→23:40)
[2017-08-23] MEDS: VANCOMYCIN 1GM/NS 250 ML 250 ML IV SCH ×2 (03:45→06:14)
[2017-08-23] MEDS: CEFEPIME HCL 1 GM VIAL IV SCH ×2 (04:06→17:09)
[2017-08-23 05:22] LABS: BASOPHILS % 0.1 % (0.0-1.0); HEMOGLOBIN 10.6 g/dL (14.0-18.0); LYMPHOCYTES # (AUTO) 0.9 (1.0-3.2); LYMPHOCYTES % 9.9 % (18.0-39.1); MEAN CORPUSCULAR HEMOGLOBIN 30.8 pg (28-32); MEAN CORPUSCULAR HGB CONC 33.1 g/dL (31-35); MONOCYTES # (AUTO) 0.7 (0.2-0.8); MONOCYTES % 8.2 % (4.4-11.3); NEUTROPHILS % 81.3 % (38.7-80.0); PLATELET COUNT 161 x10e3/uL (140-360); RED BLOOD COUNT 3.44 x10e6/uL (4.3-5.7); RED CELL DISTRIBUTION WIDTH 14.5 % (11.7-14.4)
[2017-08-23 05:41] LABS: ALBUMIN 2.4 g/dL (3.5-5.0); ALBUMIN/GLOBULIN RATIO 0.6 (0.8-2.0); ANION GAP 15.7 mmol/L (8-16); CALCIUM 8.4 mg/dL (8.4-10.2); CREATININE, SERUM 1.59 mg/dL (0.72-1.25); POTASSIUM 3.7 mmol/L (3.5-5.1)
[2017-08-23] MEDS: LEVOTHYROXINE SODIUM 75 MCG TAB PO SCH (06:03)
[2017-08-23] MEDS: LEVOTHYROXINE SODIUM 100 MCG TAB PO SCH (06:03)
--- NOTE | 2017-08-23 07:01 | Diagnostic Imaging Report ---
EXAM: Single AP view of the chest (Portable). COMPARISON: Chest x-ray on 08/22/2017 INDICATION: Respiratory failure FINDINGS: Single portable AP view of the chest. The visualized bones and soft tissues, cardiac silhouette lungs, pleura appear unchanged. Status post median sternotomy. IMPRESSION: 1. Lines/tubes: * Interval repositioning of the endotracheal tube with tip at the level of T6 vertebral body, 2.2 cm above the fani. * Unchanged 2-lead ICD with leads overlying the right atrial appendage, right ventricle, and coronary sinus. Additional abandoned right ventricular lead and lead coiling around the device. * Right PICC with tip overlying the upper SVC, unchanged. * Infradiaphragmatic NG/O NG tube. 2. Unchanged bilateral pulmonary edema and cardiomegaly. Signed by: Dr. Alejo Duncan M.D. on 08/23/2017 6:58 AM
[2017-08-23 08:46] LABS: ABG HCO3 23 mmol/L (23-28); ABG PCO2 34 mmHg (41-51); ABG PH 7.44 (7.31-7.41); ABG PO2 73 mmHg (80-105)
[2017-08-23] MEDS: CARVEDILOL 3.125 MG TAB PO SCH ×2 (09:00→17:00)
[2017-08-23] MEDS: FUROSEMIDE INJ 10 MG/ML 4 ML VIAL IV SCH (09:33)
[2017-08-23] MEDS: AMIODARONE HCL 200 MG TAB PO SCH (09:39)
[2017-08-23] MEDS: APIXABAN 5 MG TABLET PO SCH ×2 (09:43→20:44)
[2017-08-23] MEDS: CLOPIDOGREL BISULFATE 75 MG TAB PO SCH (09:44)
[2017-08-23] MEDS: PANTOPRAZOLE SODIUM 40 MG SUSPDR.PKT PO SCH ×2 (09:44→17:10)
--- NOTE | 2017-08-23 10:51 | Progress Note ---
DATE: August 23, 2017 Mr. 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 He had an episode of aspiration. He required to be intubated. He was extubated a couple of days ago, and he required to be reintubated yesterday due to respiratory distress. PHYSICAL EXAMINATION GENERAL: Today, the patient is orally intubated. VITALS: Temperature is 98.6, blood pressure 120/58. HEART: Regular rate. LUNGS: Poor inspiratory effort. ABDOMEN: Distended and soft. BLOOD WORK: Potassium is 3.7, creatinine 1.59, glucose 201. White count 8.58, hemoglobin 10.6, hematocrit 32. The chest x-ray done today shows interval reposition of the endotracheal tube. Unchanged bilateral pulmonary edema and cardiomegaly. Cultures are pending. ASSESSMENT AND PLAN 1. Acute respiratory failure requiring reintubation. 2. Bilateral aspiration pneumonia. 3. Coronary artery disease: Status post coronary artery bypass graft. 4. Ckidx-bj-tokqegk systolic and diastolic congestive heart failure with ejection fraction of 25%. 5. Presence of defibrillator and pacemaker. 6. Hypertension. 7. Pneumonoconiosis. 8. History of cerebrovascular accident. 9. Hyperlipidemia. 10. Hypertension. 11. Diabetes. 12. Exposure to asbestosis. PLAN: At the present time, is to continue to monitor respiratory status. Wean as tolerated. Continue IV antibiotics. The patient was started on diuretics yesterday. All of this was discussed with the daughter at bedside. All questions were answered to satisfaction. I spent more than 35 minutes examining the patient, reviewing weekend events, lab results, x-rays, and discussing plan of care with family and nurse. Job#: [id number] [place]
[2017-08-23] MEDS: COLESTIPOL HCL 1 G TAB PO SCH (20:44)
[2017-08-23] MEDS: SERTRALINE HCL 50 MG TAB PO SCH (20:44)
[2017-08-24] VITALS (95 sets, daily range): BP systolic 105–144; BP diastolic 42–77
[2017-08-24] MEDS: CEFEPIME HCL 1 GM VIAL IV SCH ×2 (03:30→16:05)
[2017-08-24] MEDS: VANCOMYCIN 1GM/NS 250 ML 250 ML IV SCH ×2 (03:48→16:05)
[2017-08-24] MEDS: PROPOFOL IV EMULSION 10MG/ML 100ML BTL IV PRN ×3 (05:03→21:51)
[2017-08-24 05:06] LABS: BASOPHILS % 0.5 % (0.0-1.0); EOSINOPHILS # (AUTO) 0.1 (0.0-0.4); EOSINOPHILS % 1.1 % (0.0-6.0); HEMATOCRIT 31.4 % (38.2-49.6); HEMOGLOBIN 10.5 g/dL (14.0-18.0); LYMPHOCYTES # (AUTO) 1.1 (1.0-3.2); LYMPHOCYTES % 14.1 % (18.0-39.1); MEAN CORPUSCULAR HEMOGLOBIN 31.4 pg (28-32); MEAN CORPUSCULAR HGB CONC 33.4 g/dL (31-35); MONOCYTES # (AUTO) 0.7 (0.2-0.8); MONOCYTES % 9.6 % (4.4-11.3); NEUTROPHILS # (AUTO) 5.6 (2.1-6.9); NEUTROPHILS % 73.6 % (38.7-80.0); PLATELET COUNT 207 x10e3/uL (140-360); RED BLOOD COUNT 3.34 x10e6/uL (4.3-5.7); RED CELL DISTRIBUTION WIDTH 14.7 % (11.7-14.4)
[2017-08-24] MEDS: LEVOTHYROXINE SODIUM 75 MCG TAB PO SCH (05:17)
[2017-08-24] MEDS: LEVOTHYROXINE SODIUM 100 MCG TAB PO SCH (05:17)
[2017-08-24 05:32] LABS: ALBUMIN 2.4 g/dL (3.5-5.0); ALBUMIN/GLOBULIN RATIO 0.6 (0.8-2.0); ANION GAP 12.4 mmol/L (8-16); CALCIUM 8.4 mg/dL (8.4-10.2); CREATININE, SERUM 1.39 mg/dL (0.72-1.25); POTASSIUM 3.4 mmol/L (3.5-5.1)
--- NOTE | 2017-08-24 06:34 | Diagnostic Imaging Report ---
EXAM: CHEST SINGLE (PORTABLE), AP 1 view INDICATION: Respiratory failure COMPARISON: AP view of the chest August 23, 2017 FINDINGS: LINES/TUBES: The endotracheal tube terminates 4 cm above the fani. The nasal/orogastric tube courses below the diaphragm. Stable position of left approach cardiac device and right approach PICC. LUNGS: Stable bilateral airspace opacities. PLEURA: Possible small bilateral pleural effusions. Bilateral calcified pleural plaques. HEART AND MEDIASTINUM: Stable appearance BONES AND SOFT TISSUES: No acute findings. IMPRESSION: Endotracheal tube terminates 4 cm above the fani. Signed by: Dr. Nalini Sal M.D. on 08/24/2017 6:30 AM
[2017-08-24] MEDS: ALBUTEROL SULF 0.083% NEB SOLN 3 ML NEB NEB PRN ×3 (07:10→18:40)
[2017-08-24] MEDS ORDERED: POTASSIUM CHLORIDE 20MEQ/100ML 100 ML IV ONE (08:30)
[2017-08-24] MEDS: CARVEDILOL 3.125 MG TAB PO SCH ×2 (09:00→17:00)
[2017-08-24] MEDS: BALSAM PERU/CASTOR OIL 60 GM OINT...G. TP SCH (09:40)
[2017-08-24] MEDS: FUROSEMIDE INJ 10 MG/ML 4 ML VIAL IV SCH (09:40)
--- NOTE | 2017-08-24 09:41 | Progress Note ---
DATE: August 24, 2017 Mr. Lopez is an 87-year-old man with a history of coronary artery disease, status post CABG, permanent pacemaker, defibrillator, chronic systolic and diastolic CHF with an ejection fraction of 25%, hyperlipidemia, diabetes, pneumoconiosis, exposure to asbestosis came to the emergency room with changes in mental status and vomiting. He required intubation. He was extubated a couple of days ago and required to be reintubated due to cough and very thick secretions. At the present time today, he is on BiPAP. The plan is to try to extubate him if he can tolerate it. PHYSICAL EXAMINATION GENERAL: He is awake and alert. VITALS: Temperature is 98.8, blood pressure 116/55. HEART: Regular rate. LUNGS: Decreased breath sounds bilaterally. ABDOMEN: Distended and soft. BLOOD WORK: Potassium is 3.4. Creatinine is 1.39. Glucose is 148. White count 7.53, hemoglobin 10.5, hematocrit 31.4. ASSESSMENT AND PLAN 1. Acute respiratory failure. 2. Bilateral aspiration pneumonia. 3. Coronary artery disease: Status post coronary artery bypass graft. 4. Fxqwq-qd-nxyxphk systolic and diastolic congestive heart failure with ejection fraction of 25%. 5. Presence of pacemaker and defibrillator. 6. Hypertension. 7. Pneumoconiosis. 8. History of cerebrovascular accident. 9. Hyperlipidemia. 10. Diabetes. 11. Exposure to asbestosis. PLAN: At the present, is to wean the patient off the ventilator as tolerated. Continue IV antibiotics. Continue diuretics and all his heart medications. All of this was discussed with the daughter at bedside. All questions were answered to satisfaction. I spent more than 35 minutes examining the patient, reviewing overnight events, x-rays, and discussing plan of care with family. Job#: [id number] TAISHA
[2017-08-24] MEDS: CLOPIDOGREL BISULFATE 75 MG TAB PO SCH (09:59)
[2017-08-24] MEDS: APIXABAN 5 MG TABLET PO SCH ×2 (09:59→20:08)
[2017-08-24] MEDS: AMIODARONE HCL 200 MG TAB PO SCH (09:59)
[2017-08-24] MEDS: PANTOPRAZOLE SODIUM 40 MG SUSPDR.PKT PO SCH ×2 (09:59→16:05)
[2017-08-24] MEDS ORDERED: METHYLPREDNISOLONE SOD SUCC 40 MG/ML VIAL ONE (10:59)
[2017-08-24 11:20] LABS: ABG HCO3 29 mmol/L (23-28); ABG PCO2 35 mmHg (41-51); ABG PH 7.51 (7.31-7.41); ABG PO2 73 mmHg (80-105)
[2017-08-24] MEDS ORDERED: METHYLPREDNISOLONE SOD SUCC 40 MG/ML VIAL IV NR (11:30)
--- NOTE | 2017-08-24 13:19 | Progress Note ---
DATE: August 23, 2017 CARDIOLOGY PROGRESS NOTE SUBJECTIVE: Intubated and sedated. OBJECTIVE VITAL SIGNS: Temperature 99.1, heart rate 73, respiratory rate 16, blood pressure 117/53, O2 sat 95% on vent support. GENERAL: Sedated. CHEST: Coarse breath sounds. CARDIOVASCULAR: Regular rate and rhythm. Normal S1 and S2. No S3, no S4. Systolic ejection murmur 1/6. ABDOMEN: Soft. EXTREMITIES: Trace edema. CARDIOVASCULAR MEDICATIONS: Reviewed. 1. Clopidogrel 75 mg daily. 2. Eliquis 5 mg q.12 h. 3. Amiodarone 100 mg daily. 4. Furosemide 40 mg IV daily. 5. Carvedilol 3.125 mg q.12 h. Held this afternoon for low abnormal blood pressure. LABORATORY STUDIES: White blood cells 8.5, hemoglobin 10.6, platelets 161,000. Sodium 140, potassium 3.7, chloride 108, bicarbonate 24, BUN 44, creatinine 1.59, afternoon creatinine 1.1. Glucose 201. Calcium 8.7. Total bilirubin 0.8, AST 45, ALT 34. TELEMETRY: In a paced rhythm. ASSESSMENT 1. Acute respiratory failure, requiring reintubation. 2. Aspiration pneumonia. 3. Acute kidney injury on chronic kidney disease. 4. Coronary artery disease, status post bypass in the s. 5. Hypertension. 6. Lkmyn-ia-nrmxgml mixed systolic and diastolic heart failure, status post [employer] automatic implantable cardioverter defibrillator. 7. History of asbestosis. 8. Dementia. 9. History of transient ischemic attack. 10. Status post pressors for septic shock. PLAN 1. Trial diuretic with notable increasing creatinine and BUN to creatinine ratio today. 2. On antibiotics. 3. Continue supportive care. 4. Continue rest of cardiovascular medications. 5. Consider diuretic holiday tomorrow if creatinine continues to rise. Job#: [id number] CQ
[2017-08-24] MEDS ORDERED: SODIUM CHLORIDE 0.9% 250ML 250 ML ONE (15:27)
--- NOTE | 2017-08-24 18:31 | Progress Note ---
DATE: August 24, 2017 CARDIOLOGY PROGRESS NOTE SUBJECTIVE: Intubated and sedated. OBJECTIVE VITAL SIGNS: Temperature 98.8, heart rate 72, respiratory rate 21, blood pressure 129/60. O2 sat 98% on ventricular support. GENERAL: Intubated and sedated. CHEST: Decreased breath sounds. CARDIOVASCULAR: Regular rate and rhythm. Normal S1 and S2. No S3 no S4. ABDOMEN: Soft. EXTREMITIES: No edema. TELEMETRY: With paced rhythm. CARDIOVASCULAR MEDICATIONS: Reviewed on vancomycin and cefepime. On Eliquis 5 mg q.12 hours. Clopidogrel 75 mg daily. Amiodarone 100 mg daily. Carvedilol withholding parameters, not given today as the patient's blood pressure in the low normal range. On propofol drip for sedation. LABORATORY STUDIES: White blood cells 7.5, hemoglobin 10.5, platelets 207,000. Creatinine today is 1.39 with BUN of 43, lower than yesterday at 1.59. Sodium 139, potassium 3.4, chloride 104, bicarbonate 24. AST 36. ALT 40. Total protein 6.5. Albumin 2.4. ASSESSMENT: 1. Acute respiratory failure requiring reintubation. 2. Aspiration pneumonia. 3. Acute kidney injury and chronic kidney disease with improving creatinine today. 4. Coronary artery disease, status post aortic coronary bypass in the . 5. Hypertension. 6. History of acute on chronic mixed systolic and diastolic heart failure, status post St[employer] Errol automated implantable cardioverter defibrillator. 7. History of asbestosis. 8. Dementia. 9. History of transient ischemic attack. 10. Status post pressors for septic shock. PLAN: Continue current cardiovascular medications. Monitor renal function as well as electrolytes with repletion as needed. Continue cardiovascular medications, holding parameters for beta dayana. Job#: [id number]
[2017-08-24] MEDS: LACTULOSE SYRUP 20 GM/30 ML UDC NG PRN (18:59)
[2017-08-24] MEDS: COLESTIPOL HCL 1 G TAB PO SCH (20:08)
[2017-08-24] MEDS: SERTRALINE HCL 50 MG TAB PO SCH (20:08)
[2017-08-25] VITALS (72 sets, daily range): BP systolic 99–175; BP diastolic 49–90
[2017-08-25] MEDS: ALBUTEROL SULF 0.083% NEB SOLN 3 ML NEB NEB PRN ×5 (02:00→18:55)
[2017-08-25] MEDS: CEFEPIME HCL 1 GM VIAL IV SCH ×2 (03:19→16:06)
[2017-08-25] MEDS: VANCOMYCIN 1GM/NS 250 ML 250 ML IV SCH ×2 (03:19→16:06)
[2017-08-25] MEDS: PROPOFOL IV EMULSION 10MG/ML 100ML BTL IV PRN (04:04)
[2017-08-25 05:16] LABS: BASOPHILS % 0.2 % (0.0-1.0); HEMATOCRIT 32.4 % (38.2-49.6); HEMOGLOBIN 10.9 g/dL (14.0-18.0); LYMPHOCYTES # (AUTO) 0.7 (1.0-3.2); LYMPHOCYTES % 7.6 % (18.0-39.1); MEAN CORPUSCULAR HEMOGLOBIN 30.9 pg (28-32); MEAN CORPUSCULAR HGB CONC 33.6 g/dL (31-35); MEAN CORPUSCULAR VOLUME 91.8 fL (81-99); MONOCYTES # (AUTO) 0.6 (0.2-0.8); MONOCYTES % 7.2 % (4.4-11.3); NEUTROPHILS # (AUTO) 7.5 (2.1-6.9); NEUTROPHILS % 84.3 % (38.7-80.0); PLATELET COUNT 237 x10e3/uL (140-360); RED BLOOD COUNT 3.53 x10e6/uL (4.3-5.7); RED CELL DISTRIBUTION WIDTH 14.5 % (11.7-14.4)
[2017-08-25 05:33] LABS: ALBUMIN 2.4 g/dL (3.5-5.0); ALBUMIN/GLOBULIN RATIO 0.6 (0.8-2.0); ANION GAP 12.4 mmol/L (8-16); CALCIUM 8.8 mg/dL (8.4-10.2); CREATININE, SERUM 1.38 mg/dL (0.72-1.25); POTASSIUM 3.4 mmol/L (3.5-5.1)
--- NOTE | 2017-08-25 06:07 | Diagnostic Imaging Report ---
EXAM: CHEST SINGLE (PORTABLE), AP 1 view INDICATION: Respiratory failure COMPARISON: AP view of the chest August 24, 2017 FINDINGS: LINES/TUBES: Stable endotracheal tube, left approach cardiac device and nasal/orogastric tube and right approach PICC. LUNGS: Stable bilateral airspace opacities. PLEURA: Calcified pleural plaques and possible small bilateral pleural effusions. HEART AND MEDIASTINUM: Stable appearance. BONES AND SOFT TISSUES: No acute findings. IMPRESSION: No significant interval change. Signed by: Dr. Nalini Sal M.D. on 08/25/2017 6:04 AM
[2017-08-25] MEDS: LEVOTHYROXINE SODIUM 75 MCG TAB PO SCH (06:28)
[2017-08-25] MEDS: LEVOTHYROXINE SODIUM 100 MCG TAB PO SCH (06:28)
[2017-08-25] MEDS: FUROSEMIDE INJ 10 MG/ML 4 ML VIAL IV SCH (08:31)
[2017-08-25] MEDS: CARVEDILOL 3.125 MG TAB PO SCH ×2 (08:32→17:03)
[2017-08-25] MEDS: APIXABAN 5 MG TABLET PO SCH ×2 (08:32→20:39)
[2017-08-25] MEDS: CLOPIDOGREL BISULFATE 75 MG TAB PO SCH (08:32)
[2017-08-25] MEDS: AMIODARONE HCL 200 MG TAB PO SCH (08:32)
[2017-08-25] MEDS: PANTOPRAZOLE SODIUM 40 MG SUSPDR.PKT PO SCH ×2 (08:32→17:03)
[2017-08-25] MEDS: BALSAM PERU/CASTOR OIL 60 GM OINT...G. TP SCH (09:35)
--- NOTE | 2017-08-25 10:07 | Progress Note ---
DATE: August 25, 2017 Mr. Lopez is a 27-year-old man with history of coronary artery disease. 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 He was admitted to ICU and he is still orally intubated. He is on BiPAP and weaning process is on. OBJECTIVE GENERAL: He is awake. VITAL SIGNS: Temperature 98.1, blood pressure 136/59. HEART: Regular rate. LUNGS: Poor inspiratory effort. ABDOMEN: Tender and soft. On the blood work, potassium 3.4, creatinine 1.38, glucose 260, white count 8.89, hemoglobin 10.9. ASSESSMENT 1. Acute respiratory failure. 2. Bilateral aspiration pneumonia. 3. Coronary artery disease, status post coronary artery bypass graft. 4. Paacj-cu-jtglvcp systolic and diastolic congestive heart failure with ejection fraction of 25%. 5. Presence of permanent pacemaker and defibrillator. 6. Hypertension. 7. Pneumoconiosis. 8. History of cerebrovascular accident. 9. Hyperlipidemia. 10. Diabetes. 11. Exposure to asbestosis. 12. History of transient ischemic attack. PLAN: This patient is on the weaning process. He is on CPAP. Weaning process is going on. Continue IV antibiotics. Continue heart medications. All of this was discussed with the daughter at bedside. I spent more than 35 minutes examining the patient, reviewing overnight events, chest x-ray, laboratory results, and discussing plan of care with the family. Job#: [id number]
[2017-08-25 10:18] LABS: ABG HCO3 28 mmol/L (23-28); ABG PCO2 39 mmHg (41-51); ABG PH 7.47 (7.31-7.41); ABG PO2 71 mmHg (80-105)
[2017-08-25] MEDS ORDERED: METHYLPREDNISOLONE SOD SUCC 125 MG/2ML VIAL ONE (11:21)
[2017-08-25] MEDS ORDERED: METHYLPREDNISOLONE SOD SUCC 125 MG/2ML VIAL IV ONE (11:30)
--- NOTE | 2017-08-25 11:52 | Progress Note ---
DATE: August 25, 2017 PULMONARY/CRITICAL CARE PROGRESS NOTE The patient was placed on pressor support of 8 and a CPAP of 5 this morning. The patient has remained on this for about 3 hours. His respiratory rate is 22 with tidal volumes of 350 to 450 mL. He has scant secretions. He is awake with cessation of the sedatives. OBJECTIVE VITAL SIGNS: Blood pressure 130/88 and pulse is 66. The respiratory rate is 18. O2 saturation is 100% on 40%. HEENT: Shows no facial swelling or erythema. The patient has endotracheal tube in place. LYMPHATICS: No submandibular, cervical or supraclavicular adenopathy. CARDIAC EXAM: Regular rate and rhythm with normal S1 and S2. There are no murmurs or rubs. LUNGS: Auscultation of the lungs reveals rhonchus breath sounds bilaterally. There is no wheezing. ABDOMEN: Soft and nontender. There is no rebound or guarding. EXTREMITIES: No leg edema or calf tenderness. No cyanosis or clubbing. LABORATORY DATA: Blood gases 7.47, 39, 71 and 28. The BUN to creatinine ratio is 46 to 1.38. The other electrolytes are within normal limits. Hemoglobin 10.9, white blood cell count 8.9. Platelet count is 237,000. RADIOGRAPHIC DATA: Chest x-ray shows continued infiltrates. IMPRESSION 1. Aspiration pneumonia with septic shock. 2. Anafw-et-wvbyafe respiratory failure. 3. Chronic systolic congestive heart failure. 4. Atrial fibrillation. 5. Pneumoconiosis. 6. Acute kidney injury. PLAN: 1. We will proceed with extubation. The patient has done well on spontaneous breathing trial and is awake. He is negative about 2-3 liters over the past several days. 2. Solu-Medrol x1. 3. Continue current antibiotics. 4. Discussed the case with the daughter, nursing staff and respiratory. Greater than 35 minutes in critical care time during 2 separate visits today. Job#: [id number]
[2017-08-25] MEDS ORDERED: POTASSIUM CHLORIDE 20MEQ/15ML UDC NG ONE (13:00)
[2017-08-25] MEDS ORDERED: DEXTROSE 50% SYRINGE 50 ML IV PRN (13:00)
[2017-08-25] MEDS: ACETAMINOPHEN 325 MG/10 ML UDC NG PRN ×2 (13:28→20:14)
--- NOTE | 2017-08-25 13:32 | Progress Note ---
DATE: August 25, 2017 Mr. Lopez continues to improve today. Family at the bedside. No new complaints. Off the vent, comfortable, no complaints. REVIEW OF SYSTEMS: Otherwise, no new findings. LABORATORY DATA: Reviewed. White count 8.89, hemoglobin 10.9. Sodium 140, potassium 3.4, creatinine 1.38. Sputum showing MRSA and yeast. Blood cultures are negative. PHYSICAL EXAMINATION GENERAL: He is alert and oriented. Follows commands. VITALS: Stable. Currently afebrile. HEENT: Anicteric. NECK: Supple. CHEST: Clear anteriorly. COR: S1 and S2. No S3, S4 or murmur. ABDOMEN: Soft. Bowel sounds present. IMPRESSION 1. Aspiration pneumonia and sepsis present on admission, both resolved, to finish 5 days of antibiotic. 2. Pznrf-wy-rfgfziy respiratory failure seems to be resolved. 3. Chronic congestive heart failure, systolic. Seems to be stable. 4. Acute kidney injury, seems to be better. There is a component of chronic kidney disease. 5. Debility. 6. History of hypertension. 7. Diabetes mellitus. 8. History of asbestosis. From an infectious disease point of view, can discontinue IV antibiotic tomorrow. Continue with PT and OT. Will follow. Job#: [id number]
[2017-08-25] MEDS ORDERED: INSULIN LISPRO 100 UNIT/1 ML 3ML VIAL SQ SCH (16:30)
--- NOTE | 2017-08-25 16:54 | Diagnostic Imaging Report ---
EXAM: CHEST SINGLE (PORTABLE), AP 1 view INDICATION: Aspiration pneumonia. COMPARISON: AP view of the chest August 25, 2017 at 5:19 AM hours. FINDINGS: LINES/TUBES: Stable endotracheal tube, left approach cardiac device and nasal/orogastric tube and suboptimally visualized right approach PICC. LUNGS: Stable patchy density in the bilateral mid to lower hemithoraces concerning for multifocal pneumonia in the proper clinical setting. PLEURA: Calcified pleural plaques and small bilateral pleural effusions. HEART AND MEDIASTINUM: Stable appearance. BONES AND SOFT TISSUES: No acute findings. IMPRESSION: Stable patchy density in the bilateral mid to lower hemithoraces concerning for multifocal pneumonia in the proper clinical setting. Signed by: Dr. Saurabh Rodriguez M.D. on 08/25/2017 4:51 PM
--- NOTE | 2017-08-25 16:58 | Diagnostic Imaging Report ---
EXAM: ABDOMEN-1VIEW (KUB), DATE: 08/25/2017 3:18 PM INDICATION: Check placement. COMPARISON: 08/22/2017 FINDINGS: Lateral right abdomen was not included. LINES/TUBES: Tube projected on the left mid abdomen medially likely an orogastric tube with distal tip in the gastric body. BOWEL PATTERN: No evidence for obstruction. SOFT TISSUES: No abnormal calcifications. No mass effect. LUNG BASES: Left basilar atelectasis BONES: No acute findings. Degenerative changes of the lower lumbar spine. IMPRESSION: Tube projected on the left mid abdomen medially likely an orogastric tube with distal tip in the gastric body, slightly more proximal than on prior examination. Signed by: Dr. Saurabh Rodriguez M.D. on 08/25/2017 4:54 PM
[2017-08-25] MEDS: INSULIN LISPRO 100 UNIT/1 ML 3ML VIAL SQ SCH (17:18)
--- NOTE | 2017-08-25 17:50 | Progress Note ---
DATE: August 25, 2017 CARDIOLOGY PROGRESS NOTE SUBJECTIVE: Extubated. Has no complaints. Nasogastric tube in place. OBJECTIVE: VITAL SIGNS: Temperature is 98.4, heart rate 70, respiratory rate 22, blood pressure 116/51, O2 sat 93% on 4 liter per minute nasal cannula. GENERAL: No acute distress. NECK: No JVD. CHEST: Clear to auscultation. CARDIOVASCULAR: Regular rate and rhythm. Normal S1 and S2. No S3, no S4. On telemetry in paced rhythm. ABDOMEN: Soft. EXTREMITIES: No edema. Warm distal extremities. CARDIOVASCULAR MEDICATIONS: Reviewed. Include Eliquis 5 mg every 12 hours. Clopidogrel 75 mg daily. Carvedilol 3.125 mg every 12 hours. Furosemide 40 mg IV daily. Amiodarone 100 mg daily. Also on vancomycin and cefepime antibiotics. STUDIES: White blood cells 8.8, hemoglobin 10.9, platelets 237. Sodium 140, potassium 3.4, chloride 104, bicarbonate 27, BUN 46, creatinine 1.38, glucose 250. Total bilirubin is 0.9. Calcium 8.8. AST 34, ALT 36, alk phos 67. Total protein 6.6, albumin 2.4. ASSESSMENT: 1. Aspiration pneumonia and sepsis, now resolved. 2. 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 3. Status post acute respiratory failure, now extubated. 4. Acute kidney injury, improving, a component of chronic kidney disease present. 5. Hypertension and diabetes. 6. History of asbestosis. 7. Coronary artery disease status post aorta-coronary bypass in the Nineties. 8. Status post St. Errol automatic implantable cardioverter-defibrillator. 9. Dementia. 10. History of transient ischemic attack. RECOMMENDATION: Continue current cardiovascular medications and monitor closely for any signs of recurrent aspiration or respiratory distress. Job#: [id number] EV
[2017-08-25] MEDS: SERTRALINE HCL 50 MG TAB PO SCH (20:39)
[2017-08-25] MEDS: COLESTIPOL HCL 1 G TAB PO SCH (20:39)
[2017-08-26] VITALS (48 sets, daily range): BP systolic 96–159; BP diastolic 40–73
[2017-08-26] MEDS: INSULIN LISPRO 100 UNIT/1 ML 3ML VIAL SQ SCH ×4 (00:22→18:41)
[2017-08-26] MEDS: ALBUTEROL SULF 0.083% NEB SOLN 3 ML NEB NEB PRN ×6 (01:00→22:55)
[2017-08-26] MEDS: VANCOMYCIN 1GM/NS 250 ML 250 ML IV SCH ×2 (04:03→16:25)
[2017-08-26] MEDS: CEFEPIME HCL 1 GM VIAL IV SCH (04:05)
[2017-08-26 04:53] LABS: BASOPHILS % 0.2 % (0.0-1.0); HEMATOCRIT 34.6 % (38.2-49.6); HEMOGLOBIN 11.3 g/dL (14.0-18.0); LYMPHOCYTES # (AUTO) 0.8 (1.0-3.2); LYMPHOCYTES % 6.1 % (18.0-39.1); MEAN CORPUSCULAR HEMOGLOBIN 30.5 pg (28-32); MEAN CORPUSCULAR HGB CONC 32.7 g/dL (31-35); MEAN CORPUSCULAR VOLUME 93.5 fL (81-99); MONOCYTES # (AUTO) 0.9 (0.2-0.8); MONOCYTES % 7.2 % (4.4-11.3); NEUTROPHILS # (AUTO) 11.2 (2.1-6.9); NEUTROPHILS % 85.9 % (38.7-80.0); PLATELET COUNT 320 x10e3/uL (140-360); RED CELL DISTRIBUTION WIDTH 14.6 % (11.7-14.4)
[2017-08-26 05:25] LABS: ALBUMIN 2.6 g/dL (3.5-5.0); ALBUMIN/GLOBULIN RATIO 0.6 (0.8-2.0); ANION GAP 14.8 mmol/L (8-16); CALCIUM 9.3 mg/dL (8.4-10.2); CREATININE, SERUM 1.3 mg/dL (0.72-1.25); POTASSIUM 3.8 mmol/L (3.5-5.1)
--- NOTE | 2017-08-26 05:50 | Diagnostic Imaging Report ---
EXAM: CHEST SINGLE (PORTABLE), AP 1 view INDICATION: Respiratory failure COMPARISON: AP view of the chest August 25, 2017 FINDINGS: LINES/TUBES: Stable position of nasogastric tube and a right approach PICC and left approach cardiac device. LUNGS: Stable bilateral airspace opacities. PLEURA: Calcified bilateral pleural plaques. HEART AND MEDIASTINUM: Stable appearance BONES AND SOFT TISSUES: No acute findings. IMPRESSION: No interval change Signed by: Dr. Nalini Sal M.D. on 08/26/2017 5:47 AM
[2017-08-26] MEDS: LEVOTHYROXINE SODIUM 100 MCG TAB PO SCH (06:07)
[2017-08-26] MEDS: LEVOTHYROXINE SODIUM 75 MCG TAB PO SCH (06:07)
[2017-08-26] MEDS ORDERED: LIDOCAINE HCL 4% 50 ML BTL TOP PRN (09:30)
[2017-08-26] MEDS: FUROSEMIDE INJ 10 MG/ML 4 ML VIAL IV SCH (09:36)
[2017-08-26] MEDS: ONDANSETRON HCL INJ 2 MG/ML VIAL IV PRN (09:37)
[2017-08-26] MEDS: ACETAMINOPHEN 325 MG/10 ML UDC NG PRN (09:37)
[2017-08-26] MEDS: BALSAM PERU/CASTOR OIL 60 GM OINT...G. TP SCH (09:37)
[2017-08-26] MEDS: APIXABAN 5 MG TABLET PO SCH (09:37)
[2017-08-26] MEDS: CARVEDILOL 3.125 MG TAB PO SCH ×2 (09:37→20:34)
[2017-08-26] MEDS: PANTOPRAZOLE SODIUM 40 MG SUSPDR.PKT PO SCH ×2 (09:37→20:34)
[2017-08-26] MEDS: AMIODARONE HCL 200 MG TAB PO SCH (09:37)
[2017-08-26] MEDS: CLOPIDOGREL BISULFATE 75 MG TAB PO SCH (09:37)
--- NOTE | 2017-08-26 10:02 | Progress Note ---
DATE: August 26, 2017 Mr. Lopez is an 87-year-old man with a history of coronary artery disease, status post CABG, permanent pacemaker, defibrillator, chronic systolic and diastolic CHF with ejection fraction of 25%, diabetes, pneumoconiosis, hyperlipidemia, came to the emergency room complaining of vomiting and changes in mental status. Admitted to ICU. He had to be intubated. He was successfully extubated yesterday. He is still on NG tube feedings. PHYSICAL EXAMINATION GENERAL: Today, he is awake. VITALS: Temperature is 98.2, blood pressure 140/65. HEART: Regular rate. LUNGS: Poor inspiratory effort. ABDOMEN: Distended and soft. BLOOD WORK: Potassium 3.8, creatinine 1.3, glucose 203. White count is 13, hemoglobin 11.3, hematocrit 34.6. Chest x-ray is unchanged. ASSESSMENT AND PLAN 1. Acute respiratory failure: Status post extubation. 2. Bilateral aspiration pneumonia. 3. Coronary artery disease: Status post coronary artery bypass graft. 4. Xdehu-ut-ibpdcxg systolic and diastolic congestive heart failure with ejection fraction of 25%. 5. Presence of defibrillator on permanent pacemaker. 6. Hypertension. 7. Pneumoconiosis. 8. History of cerebrovascular accident. 9. Hyperlipidemia. 10. Diabetes. 11. Exposure to asbestosis. PLAN: At the present time, continue to monitor respiratory status. The patient is doing to have a bedside swallow evaluation. If he can swallow, we are going to remove the NG tube and start him on feedings. Continue IV antibiotics. All of this was discussed with the patient and daughter at bedside. All questions were answered to satisfaction. I spent more than 35 minutes examining the patient, reviewing overnight events, x-rays, lab results, and discussing plan of care with the patient and family. Job#: [id number] TAISHA
--- NOTE | 2017-08-26 13:28 | Progress Note ---
DATE: August 26, 2017 CARDIOLOGY PROGRESS NOTE SUBJECTIVE: No complaints. OBJECTIVE VITAL SIGNS: Temperature 98.1, heart rate 73, respiratory rate 18, blood pressure 137/58. O2 sat 96% on nasal cannula at 4 liters per minute. TELEMETRY: Paced rhythm. GENERAL: No acute distress. CHEST: Decreased breath sounds at bilateral bases. CARDIOVASCULAR: Regular rate and rhythm. Normal S1 and S2. Systolic ejection murmur 1/6. No S3, no S4. ABDOMEN: Soft. EXTREMITIES: No edema. Warm distal extremities. CARDIOVASCULAR MEDICATIONS: Reviewed. 1. Eliquis 5 mg q.12 h. 2. Clopidogrel 75 mg daily. 3. Carvedilol 3.125 mg b.i.d. STUDIES: Reviewed. White blood cells 13.08, hemoglobin 11.3, platelets 320. Sodium 147, potassium 3.8, chloride 108, bicarbonate 28, BUN 50, creatinine 1.3, glucose 203. Hemoglobin A1c is 6.5. Calcium 9.3. Total bilirubin is 1.2, AST 41, ALT 39, total protein 7.1, albumin 2.6. ASSESSMENT 1. Aspiration pneumonia and sepsis, now resolved. 2. Cogiz-hx-qtqprep systolic and diastolic mixed heart failure. 3. Status post St. Errol automatic implantable cardioverter-defibrillator. 4. Status post acute kidney injury with a component of chronic kidney disease. 5. Status post acute respiratory failure, now extubated. 6. History of hypertension. 7. History of diabetes mellitus, type 2. 8. 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 9. Coronary artery disease, status post aortocoronary bypass in the 90s. 10. Dementia. 11. History of transient ischemic attack. RECOMMENDATIONS: Diuretic holiday, given prerenal state. Continue to monitor volume status closely. Patient possibly being evaluated for LTAC candidacy. Continue supportive care. Job#: [id number]
[2017-08-26] MEDS: HYDROMORPHONE 1MG/1ML INJ IV PRN (16:25)
--- NOTE | 2017-08-26 20:10 | Diagnostic Imaging Report ---
Abdomen/KUB INDICATION: Abdominal pain COMPARISON: Abdominal x-ray 08/25/2017. FINDINGS: Portable, supine image obtained at 1858 hours. Images are mildly motion degraded. Medical Devices: Pacemaker wire remains in the right ventricle. Visualized median sternotomy wires are intact. A potential orogastric tube is in the left upper quadrant. Bowel: Bowel gas pattern is unremarkable. No dilated bowel loops. No pneumatosis. Calcifications: None Organomegaly: None Bones: Stable degenerative changes. IMPRESSION: Unremarkable bowel gas pattern. An orogastric tube, if present, is poorly visualized. Signed by: Dr. Emi Lyon MD on 08/26/2017 8:07 PM
[2017-08-26] MEDS: SERTRALINE HCL 50 MG TAB PO SCH (20:34)
[2017-08-26] MEDS: COLESTIPOL HCL 1 G TAB PO SCH (20:34)
[2017-08-26] MEDS: INSULIN DETEMIR 100 UNIT/ML PEN SQ SCH (21:47)
[2017-08-27] VITALS (45 sets, daily range): BP systolic 62–128; BP diastolic 39–67
[2017-08-27] MEDS: HYDROMORPHONE 1MG/1ML INJ IV PRN ×3 (01:07→14:43)
[2017-08-27] MEDS: ALBUTEROL SULF 0.083% NEB SOLN 3 ML NEB NEB PRN ×4 (02:20→15:00)
[2017-08-27 03:44] LABS: BASOPHILS % 0.2 % (0.0-1.0); EOSINOPHILS # (AUTO) 0.1 (0.0-0.4); EOSINOPHILS % 0.4 % (0.0-6.0); HEMOGLOBIN 11.1 g/dL (14.0-18.0); LYMPHOCYTES % 5.7 % (18.0-39.1); MEAN CORPUSCULAR HEMOGLOBIN 30.7 pg (28-32); MEAN CORPUSCULAR HGB CONC 32.6 g/dL (31-35); MEAN CORPUSCULAR VOLUME 93.9 fL (81-99); MONOCYTES # (AUTO) 0.9 (0.2-0.8); MONOCYTES % 5.1 % (4.4-11.3); NEUTROPHILS # (AUTO) 14.7 (2.1-6.9); NEUTROPHILS % 87.8 % (38.7-80.0); PLATELET COUNT 305 x10e3/uL (140-360); RED BLOOD COUNT 3.62 x10e6/uL (4.3-5.7); RED CELL DISTRIBUTION WIDTH 14.9 % (11.7-14.4)
[2017-08-27] MEDS: VANCOMYCIN 1GM/NS 250 ML 250 ML IV SCH (03:45)
[2017-08-27 04:04] LABS: ALBUMIN 2.3 g/dL (3.5-5.0); ALBUMIN/GLOBULIN RATIO 0.5 (0.8-2.0); ANION GAP 12.7 mmol/L (8-16); CALCIUM 9.1 mg/dL (8.4-10.2); CREATININE, SERUM 1.38 mg/dL (0.72-1.25); POTASSIUM 3.7 mmol/L (3.5-5.1)
[2017-08-27] MEDS: LEVOTHYROXINE SODIUM 100 MCG TAB PO SCH (06:03)
[2017-08-27] MEDS: LEVOTHYROXINE SODIUM 75 MCG TAB PO SCH (06:04)
[2017-08-27] MEDS: INSULIN LISPRO 100 UNIT/1 ML 3ML VIAL SQ SCH ×4 (06:09→18:00)
[2017-08-27] MEDS: LIDOCAINE HCL 2% JELLY 5 ML TUBE TOP PRN (08:32)
[2017-08-27] MEDS: FUROSEMIDE INJ 10 MG/ML 2 ML VIAL IV SCH (08:37)
[2017-08-27] MEDS: AMIODARONE HCL 200 MG TAB PO SCH (08:38)
[2017-08-27] MEDS: CLOPIDOGREL BISULFATE 75 MG TAB PO SCH (08:38)
[2017-08-27] MEDS: ACETAMINOPHEN 325 MG/10 ML UDC NG PRN (08:38)
[2017-08-27] MEDS: PANTOPRAZOLE SODIUM 40 MG SUSPDR.PKT PO SCH ×2 (08:38→22:37)
[2017-08-27] MEDS: CARVEDILOL 3.125 MG TAB PO SCH ×2 (08:38→22:36)
[2017-08-27] MEDS: BALSAM PERU/CASTOR OIL 60 GM OINT...G. TP SCH (08:38)
[2017-08-27] MEDS ORDERED: FUROSEMIDE INJ 10 MG/ML 4 ML VIAL IV SCH (09:00)
--- NOTE | 2017-08-27 09:03 | Progress Note ---
DATE: August 27, 2017 Mr. 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 He came to the emergency room with changes in mental status and vomiting. He required intubation twice. He is now extubated. He still has an NG tube. At the present time, he is complaining of some type of abdominal pain. PHYSICAL EXAMINATION GENERAL: He is awake. VITALS: Temperature is 98.6, blood pressure 119/55. HEART: Regular rate. LUNGS: Poor inspiratory effort. ABDOMEN: Distended and soft. LABS: On the blood work, potassium 3.7, creatinine 1.38, glucose 158. White count is 16.7, hemoglobin 11.1, hematocrit 34. ASSESSMENT AND PLAN 1. Acute respiratory failure, status post extubation. 2. Bilateral aspiration pneumonia. 3. Coronary artery disease, status post coronary artery bypass graft. 4. Znrbw-yj-liblujx systolic and diastolic congestive heart failure with ejection fraction of 25%. 5. Presence of defibrillator on permanent pacemaker. 6. Hypertension. 7. Pneumoconiosis. 8. History of cerebrovascular accident. 9. Hyperlipidemia. 10. Diabetes. 11. Some type of abdominal pain. KUB does not show much. We are going to get an ultrasound of the abdomen. Give him something for pain. The plan at the present time is to continue to monitor the respiratory status. He is on NG feedings. Continue IV antibiotics. White count went up since yesterday. We are going to get an abdominal ultrasound. If that comes back negative, probably the patient is going to need a CAT scan of the abdomen. All of this was discussed with the patient and daughter at bedside. All questions were answered to satisfaction. I spent more than 35 minutes examining the patient, reviewing overnight events, x-rays and lab work and discussing the plan of care with the patient and the family. Job#: [id number]
[2017-08-27] MEDS ORDERED: SIMETHICONE 80 MG CHEW PO PRN (10:00)
[2017-08-27] MEDS: CEFEPIME HCL 1 GM VIAL IV SCH ×2 (11:26→22:37)
[2017-08-27] MEDS: METRONIDAZOLE 500MG/NS 100ML 100 ML IV SCH ×2 (11:26→22:36)
[2017-08-27] MEDS: ONDANSETRON HCL INJ 2 MG/ML VIAL IV PRN (11:27)
[2017-08-27] MEDS ORDERED: SODIUM CHLORIDE 0.9% 250ML 250 ML ONE (11:30)
--- NOTE | 2017-08-27 14:10 | Consultation ---
DATE OF CONSULTATION: August 26, 2017 GI CONSULTATION REFERRING PHYSICIAN: Dr. Montserrat Carr REASON FOR CONSULT: Diffuse abdominal pain for 2-3 days. HISTORY OF PRESENTING ILLNESS: An 87-year-old white male, who is at the moment pleasantly confused. He is in the ICU. I cannot derive any history from him. GI has been consulted for evaluation of diffuse abdominal pain. He got admitted with aspiration pneumonia, currently being treated with IV antibiotic. Initially, he was in respiratory failure requiring endotracheal intubation and mechanical ventilation. He was successfully extubated. He was getting enteral feeding through the NG tube. He has had speech and swallow evaluation done. It is recommended by speech therapist to continue NG feeding for now. Patient had 1 soft bowel movement today. GI is being consulted because he is having diffuse abdominal pain. KUB done today showed normal bowel-gas pattern. On further questioning with nurse taking care of him in the instrumentation engineering technician, telling me that he is complaining of pain everywhere. He will touch his body anywhere. He winces his face. REVIEW OF SYSTEMS: Unobtainable. PAST MEDICAL HISTORY: Coronary artery disease, status post CABG, cardiac dysrhythmia, status post pacemaker, AICD, CVA in June 2017, hypertension, hyperlipidemia, borderline diabetes. PAST SURGICAL HISTORY: AICD, pacemaker placement, CABG. FAMILY HISTORY: Noncontributory given his advanced age. SOCIAL HISTORY: No smoking, alcohol or any illicit drug use. He lives at home with his daughter. ALLERGIES: NO KNOWN DRUG ALLERGIES. HOME MEDICATIONS: Amiodarone, atorvastatin, carvedilol, clopidogrel, colestipol, donepezil, levothyroxine, losartan, pantoprazole, sertraline, vitamin E, and Eliquis. PHYSICAL EXAMINATION VITAL SIGNS: Temperature 98.2, pulse ranging from 73 to 72, respirations 16, blood pressure 125/64-118/66, oxygen saturation 96% on nasal cannula. GENERAL: Not in any acute distress, but pleasantly confused. Not oriented to time and place at this time. HEENT: Moist mucous membrane. Anicteric sclerae. LYMPHS: No neck or axillary adenopathy. CVS: S1, S2 irregularly irregular with a 3/6 slow murmur at the apex. AICD in the chest wall. LUNGS: Bilaterally grossly clear with occasional scattered rhonchi and rales with lower lung villarreal. ABDOMEN: Soft, nontender, nondistended. No palpable mass or hernia. Positive bowel sounds. EXTREMITIES: Warm. No leg edema. LAB: WBC has gone to 13.08, hemoglobin 11.3 from 10.9, hematocrit 34.6. MCV 93.5, platelet count 320,000. Sodium 147, potassium 3.8, chloride 108, bicarb 28, BUN 50, creatinine 1.30, glucose 203. Liver enzymes showed a total bilirubin 1.2. AST 41, ALT 39, alkaline phosphatase 61. PT 14.3, INR 1.20. Stool lactoferrin positive. C. difficile negative. Abdominal x-ray, normal bowel-gas pattern, orogastric tube at present is poorly visualized. IMPRESSION: An 87-year-old white male with the host of comorbidities that include coronary artery disease, cardiac dysrhythmia, status post pacemaker, defibrillator, got admitted with aspiration pneumonia, currently being treated with IV antibiotic, was in respiratory failure, requiring mechanical ventilation, successfully extubated. Getting enteral feedings through the nasogastric. Gastrointestinal has been consulted for patient complaining of also abdominal pain. However, abdominal exam is very benign. Abdominal x-ray is normal bowel-gas pattern. He also has had 1 bowel movement today. PLAN: From GI standpoint, I do not see any acute GI pathology at this time. Recommend continue NG feeding. Rest of the care as per primary team. Will continue to monitor him clinically. I thank Dr. Carr for allowing me to participate in the care of this patient. Job#: [id number] MARYA
--- NOTE | 2017-08-27 15:01 | Diagnostic Imaging Report ---
PROCEDURE:ABDOMINAL ULTRASOUND COMPARISON:CT abdomen and pelvis 08/18/2017 INDICATIONS:abdominal pain TECHNIQUE: Guido-scale and color sonographic images were obtained of the abdomen in transverse and sagittal planes. FINDINGS: Liver: 16.1 in length in right midclavicular line. Normal echogenicity. No masses. Main portal vein: 0.8 cm in diameter, normal in size. Hepatopetal flow Gallbladder: No stones or sludge. Wall measures 0.5 cm in thickness. Common Bile Duct: Not well visualized Sonographic Mccauley's sign: Negative Right kidney: 10.3 cm in length. Normal echogenicity. No hydronephrosis, masses, or cysts. Left kidney: 8.8 cm in length. Normal echogenicity. No hydronephrosis, masses, or cysts. Spleen: 8.9 cm in length. No masses. Pancreas: The visualized portions are unremarkable. Inferior vena cava: Patent Aorta: Within normal limits Ascites: None CONCLUSION: Mild nonspecific gallbladder wall thickening without sonographic evidence of cholelithiasis or acute cholecystitis. Limited evaluation of the common bile duct which was not visualized. Dictated by: Berry Alexander M.D. on 08/27/2017 at 15:05 Electronically approved by: Berry Alexander M.D. on 08/27/2017 at 15:05
[2017-08-27] MEDS ORDERED: SODIUM CHLORIDE 0.9% 500ML 500 ML IV ONE (18:30)
--- NOTE | 2017-08-27 19:08 | Consultation ---
DATE OF CONSULTATION: August 27, 2017 REASON FOR CONSULTATION: Chronic kidney disease, need for contrast prophylaxis. HISTORY OF PRESENT ILLNESS: The patient is an 87-year-old male with a past medical history of coronary artery disease, status post CABG, CHF, ejection fraction of 25%, status post AICD, hypertension, hyperlipidemia, history of stroke, pneumoconiosis, and Alzheimer dementia, who was originally admitted to the hospital with coughing. The patient was found to have bilateral aspiration pneumonia and was intubated, and then extubated and then got intubated again. Recently, got extubated. Baseline creatinine is around 1.3. The patient has been complaining of abdominal pain. CT of the abdomen and pelvis with IV contrast was ordered by infectious disease, but nephrology consultation has been called in for contrast prophylaxis. The patient is currently confused. Failed swallow eval and has an NG tube for feeding. PAST MEDICAL HISTORY: As above. PAST SURGICAL HISTORY: AICD, right shoulder surgery, CABG. SOCIAL HISTORY: No history of smoking, alcohol or drug abuse. Lives at home with the daughter. FAMILY HISTORY: No history of any kidney disease. ALLERGIES: NO KNOWN DRUG ALLERGIES. MEDICATIONS: Albuterol neb treatments, hydromorphone p.r.n., insulin, simethicone, metronidazole, cefepime, Plavix, amiodarone, Lasix 20 mg IV, insulin, Sertraline, colestipol, lactulose, Coreg, pantoprazole. REVIEW OF SYSTEMS GENERAL: No fatigue. No fevers. HEENT: No headache or blurry vision or dysphagia. CARDIOVASCULAR: No chest pain. No orthopnea. RESPIRATORY: No shortness of breath or dyspnea on exertion. No cough. The patient answers no to everything probably because of the dementia. PHYSICAL EXAMINATION VITALS: Blood pressure 108/50, pulse 68, temperature 97.4, and 95% on 4 L nasal cannula. GENERAL: The patient is awake and alert. Follows commands. Not in apparent distress. HEENT: Extraocular muscles intact. NECK: No JVD. HEART: S1 and S2. LUNGS: Decreased at the bases. ABDOMEN: Soft. Bowel sounds positive. EXTREMITIES: Positive edema. NEUROLOGIC: No focal deficit. LABS: Sodium 145, potassium 3.7, chloride 106, CO2 30, BUN 52, creatinine 1.38, glucose 158, GFR 49. Magnesium 2.1. AST 42, ALT 43, albumin is 2.3. INR 1.2 on August 18, 2017. Blood gas on August 25, 2017, 7.47, pCO2 39, pO2 71, bicarb of 28. Urine culture with MRSA and maeve. Abdominal ultrasound nonspecific gallbladder wall thickening without sonographic evidence of acute cholecystitis. Chest x-ray done on August 26, 2017, stable bilateral airspace opacity, calcified bilateral pleural plaques. ASSESSMENT AND PLAN 1. Chronic kidney disease, stage 3: The patient is taking low risk for contrast with computerized tomography. Discussed with the patient's daughter, Marita Howell. Explained to her the low risk of contrast-induced nephropathy. May need replacement therapy for the rest of his life. She understands and wants to proceed. Will give 500 mL of normal saline during and after the computerized tomography scan. Repeat the labs in the morning. 2. Methicillin-resistant Staphylococcus aureus pneumonia: Infectious disease is following. Will continue with antibiotics. 3. Congestive heart failure: Currently, looks volume overloaded on intravenous Lasix. Will give intravenous fluids just for the computerized tomography for contrast prophylaxis, which will be very gentle hydration. 4. Hypertension, controlled. 5. Diabetes: As per primary team. I want to thank Dr. Carr for the consult. Discussed with the daughter over the phone. Job#: [id number] TAISHA
[2017-08-27] MEDS ORDERED: HYDROMORPHONE 1MG/1ML INJ IV NR (20:00)
--- NOTE | 2017-08-27 20:46 | Progress Note ---
DATE: August 27, 2017 CARDIOLOGY PROGRESS NOTE SUBJECTIVE: Complaining of abdominal discomfort today. OBJECTIVE VITAL SIGNS: Temperature 97.4, heart rate 70, respiratory rate 18, blood pressure 112/67, O2 sat 96% on room air. GENERAL: No acute distress. Alert. NECK: No JVD. CHEST: Clear to auscultation. CARDIOVASCULAR: Regular rate and rhythm. Normal S1 and S2. Systolic ejection murmur. Paced rhythm on telemetry. ABDOMEN: Soft, however distended. No rebound or guarding. EXTREMITIES: Trace edema. CARDIOVASCULAR MEDICATIONS: Reviewed. 1. Clopidogrel 75 mg daily. 2. Amiodarone 100 mg daily. 3. Furosemide 2 mg IV daily. 4. Levothyroxine 100 mcg daily. 5. Carvedilol 3.125 mg q.12 h. STUDIES: Reviewed. White blood cells trending up but 16.7, hemoglobin 11.1, platelets 305,000. Sodium 145, potassium 3.7, chloride 106, bicarbonate 30, BUN 52, creatinine 1.38. Glucose 198. Calcium 9.1. Total bilirubin 1.4, AST 42, ALT 43, albumin 2.3, total protein 6.7. ASSESSMENT 1. Abdominal discomfort, undergoing evaluation. 2. Aspiration pneumonia and sepsis, now resolved. 3. Ddhyy-fj-ivhbfsh systolic and diastolic mixed heart failure. 4. Status post [employer]. Errol automatic implantable cardioverter defibrillator. 5. Status post acute kidney injury with component of chronic kidney disease. 6. Status post acute respiratory failure, now extubated. 7. Hypertension. 8. Diabetes mellitus. 9. 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 10. Coronary artery disease with prior history of bypass in the s. 11. Dementia. 12. History of transient ischemic attack. RECOMMENDATIONS: Abdominal discomfort, undergoing evaluation, NG tube in place. Continue rest of cardiovascular medications for now. Monitor electrolytes. Keep in ICU given worsening abdominal discomfort. Job#: [id number] CQ
--- NOTE | 2017-08-27 21:54 | Diagnostic Imaging Report ---
EXAM: CT ABDOMEN AND PELVIS with IV CONTRAST DATE: 08/27/2017 8:19 PM Time stamp on Exam: [id number] INDICATION: Abdominal pain, upper COMPARISON: None TECHNIQUE: The abdomen and pelvis were scanned using a multidetector helical scanner. Coronal and sagittal reformations were obtained. Routine protocol performed. IV Contrast: 100 cc Isovue-370 Oral Contrast: None CTDIvol has been reviewed. It is below the limits set by the Radiation Protocol Committee (RPC). FINDINGS: LOWER THORAX: Bilateral septal thickening, groundglass opacities and bibasilar atelectasis. Partially visualized cardiomegaly. Trace bilateral pleural effusions. Bilateral calcified pleural plaques. LIVER: No masses BILIARY: Moderate distention of the gallbladder with gallbladder wall thickening and pericholecystic inflammation. SPLEEN: No masses PANCREAS: No masses ADRENALS: No nodules KIDNEYS: Symmetric perfusion. No enhancing masses. No hydronephrosis. GI TRACT: No distention, wall thickening or evidence of obstruction. Nasal/orogastric tube terminates in the second segment of the duodenum. Normal appearance of the appendix. VESSELS: Advanced atherosclerotic changes. No abdominal aortic aneurysm. PERITONEUM/RETROPERITONEUM: Trace free pelvic fluid. Right upper quadrant inflammation. LYMPH NODES: No lymphadenopathy REPRODUCTIVE ORGANS: Unremarkable BLADDER: Cordova catheter and small amount of air within the partially decompressed bladder. SOFT TISSUES: Unremarkable BONES: No suspicious bone lesions. Lucent lesion in the L3 vertebral body is likely a bony hemangioma. IMPRESSION: Gallbladder distention, wall thickening and pericholecystic inflammation suspicious for acute cholecystitis. Signed by: Dr. Nalini Sal M.D. on 08/27/2017 9:51 PM
[2017-08-27] MEDS: COLESTIPOL HCL 1 G TAB PO SCH (22:36)
[2017-08-27] MEDS: SERTRALINE HCL 50 MG TAB PO SCH (22:37)
[2017-08-27] MEDS: INSULIN DETEMIR 100 UNIT/ML PEN SQ SCH (22:43)
[2017-08-28] VITALS (33 sets, daily range): BP systolic 100–117; BP diastolic 48–83
[2017-08-28] MEDS: HYDROMORPHONE 1MG/1ML INJ IV PRN ×4 (00:16→21:23)
[2017-08-28] MEDS ORDERED: IOPAMIDOL 370 MG/ML 200 ML INFUS..BTL INJ ONE (01:14)
[2017-08-28] MEDS ORDERED: SODIUM CHLORIDE 0.9% 50ML 50 ML ONE (01:14)
[2017-08-28] MEDS: ALBUTEROL SULF 0.083% NEB SOLN 3 ML NEB NEB PRN ×6 (02:44→23:19)
[2017-08-28] MEDS: METRONIDAZOLE 500MG/NS 100ML 100 ML IV SCH ×3 (03:07→21:08)
[2017-08-28 05:00] LABS: BASOPHILS % 0.2 % (0.0-1.0); EOSINOPHILS # (AUTO) 0.1 (0.0-0.4); HEMATOCRIT 32.8 % (38.2-49.6); HEMOGLOBIN 10.5 g/dL (14.0-18.0); LYMPHOCYTES # (AUTO) 1.2 (1.0-3.2); LYMPHOCYTES % 8.3 % (18.0-39.1); MEAN CORPUSCULAR HEMOGLOBIN 30.4 pg (28-32); MEAN CORPUSCULAR VOLUME 95.1 fL (81-99); MONOCYTES # (AUTO) 0.8 (0.2-0.8); MONOCYTES % 5.7 % (4.4-11.3); NEUTROPHILS # (AUTO) 12.1 (2.1-6.9); PLATELET COUNT 314 x10e3/uL (140-360); RED BLOOD COUNT 3.45 x10e6/uL (4.3-5.7); RED CELL DISTRIBUTION WIDTH 15.2 % (11.7-14.4)
[2017-08-28 05:22] LABS: ALBUMIN 2.2 g/dL (3.5-5.0); ALBUMIN/GLOBULIN RATIO 0.5 (0.8-2.0); CALCIUM 8.9 mg/dL (8.4-10.2); CREATININE, SERUM 1.45 mg/dL (0.72-1.25)
[2017-08-28] MEDS: INSULIN LISPRO 100 UNIT/1 ML 3ML VIAL SQ SCH ×4 (06:00→18:00)
[2017-08-28] MEDS: LEVOTHYROXINE SODIUM 100 MCG TAB PO SCH (06:34)
[2017-08-28] MEDS: LEVOTHYROXINE SODIUM 75 MCG TAB PO SCH (06:34)
--- NOTE | 2017-08-28 06:36 | Diagnostic Imaging Report ---
EXAM: CHEST SINGLE (PORTABLE), AP 1 view INDICATION: Respiratory failure, shortness of breath COMPARISON: AP view of the chest August 26, 2017 FINDINGS: LINES/TUBES: Stable nasal/orogastric tube, right approach PICC and left approach cardiac device. LUNGS: Stable bilateral interstitial and alveolar opacities. PLEURA: Trace bilateral pleural effusions. Bilateral calcified pleural plaques. HEART AND MEDIASTINUM: Stable appearance. BONES AND SOFT TISSUES: No acute findings. IMPRESSION: No interval change. Signed by: Dr. Nalini Sal M.D. on 08/28/2017 6:33 AM
[2017-08-28] MEDS: CARVEDILOL 3.125 MG TAB PO SCH ×2 (09:40→21:08)
[2017-08-28] MEDS: BALSAM PERU/CASTOR OIL 60 GM OINT...G. TP SCH (09:40)
[2017-08-28] MEDS: CLOPIDOGREL BISULFATE 75 MG TAB PO SCH (09:40)
[2017-08-28] MEDS: AMIODARONE HCL 200 MG TAB PO SCH (09:40)
[2017-08-28] MEDS: FUROSEMIDE INJ 10 MG/ML 2 ML VIAL IV SCH (09:40)
[2017-08-28] MEDS: PANTOPRAZOLE SODIUM 40 MG SUSPDR.PKT PO SCH ×2 (09:40→21:08)
[2017-08-28] MEDS: CEFEPIME HCL 1 GM VIAL IV SCH ×2 (10:00→22:00)
--- NOTE | 2017-08-28 13:41 | Progress Note ---
DATE: August 28, 2017 CARDIOLOGY PROGRESS NOTE SUBJECTIVE: Confused. Generalized discomfort. OBJECTIVE VITALS: Temperature 98.9, heart rate 70, respiratory rate 16, blood pressure 116/54, O2 sat 100% on 4 L per minute nasal cannula. Telemetry in paced rhythm. GENERAL: No acute distress. Alert. NECK: No JVD. CHEST: Clear to auscultation. CARDIOVASCULAR: Regular rate and rhythm. Normal S1 and S2. No S3. No S4. No murmurs or rubs. A systolic ejection murmur of 1/6. No rubs. Sternotomy scar. ABDOMEN: Soft. Less distended today and nontender. EXTREMITIES: No edema. CARDIOVASCULAR MEDICATIONS: Reviewed. 1. Furosemide 20 mg IV daily. 2. Carvedilol 3.125 mg q.12 h. 3. Amiodarone 100 mg daily. STUDIES: Reviewed. White blood cells 14.4, hemoglobin 10.5 platelets 314,000. Creatinine 1.45, glucose 197, AST 40, ALT 44. Troponin 1.4. Total protein 6.5 and albumin 2.2. ASSESSMENT 1. Abdominal discomfort, improving. 2. Confusion. 3. Aspiration pneumonia and sepsis, now resolved. 4. Ytred-ms-wvdbihy mixed systolic and diastolic heart failure. 5. Status post angio implantable cardioverter defibrillator. 6. Status post acute kidney injury on chronic kidney disease. 7. Acute respiratory failure, now extubated. 8. Hypertension. 9. Diabetes. 10. Asbestosis exposure. 11. Coronary artery disease with prior history of bypass in the . 12. Dementia. 13. History of transient ischemic attack. PLAN: Continue current cardiovascular medications. NG tube remains in place. Lung status campoverde euvolemic. Job#: [id number] TAISHA
--- NOTE | 2017-08-28 15:32 | Consultation ---
DATE OF CONSULTATION: August 28, 2017 Patient is an 87-year-old male who was admitted to the hospital with abdominal pain and also aspiration pneumonia requiring ventilatory support. He is now extubated. He has complaints of right upper quadrant abdominal pain. According to his daughter, he had this pain when the symptoms started. Evaluation of this pain with imaging studies has revealed findings suggestive of a distended gallbladder wall thickening suggesting acute cholecystitis. Patient is tolerating diet at this time, however. PAST MEDICAL HISTORY: Significant for cardiac disease with a pacemaker defibrillator in place, previous coronary artery bypass surgery, history of previous cerebrovascular accident hypertension, hyperlipidemia, pneumoconiosis. ALLERGIES: HE HAS NO KNOWN DRUG ALLERGIES. CURRENT MEDICATIONS: Listed in the chart. FAMILY HISTORY: Noncontributory. SOCIAL HISTORY: Patient does not smoke cigarettes or drink alcohol. Lives with his daughter. REVIEW OF SYSTEMS: Cannot be obtained due to the patient's condition. PHYSICAL EXAMINATION GENERAL: The patient is awake and alert. VITAL SIGNS: Normal. HEENT: Reveals no scleral icterus. NECK: Had no masses. LUNGS: Equal breath sounds are clear bilaterally. CARDIAC: Regular rhythm. ABDOMEN: Tender in the right upper quadrant. There is no distention. EXTREMITIES: Slight edema. NEUROLOGIC: Grossly intact. LAB TESTS: The white blood count is 14.4 which is down from 16.7 yesterday, hemoglobin 10.8, hematocrit 33. Chemistries reveal slightly elevated bilirubin at 1.4. AST slightly elevated at 40. Alkaline phosphatase is normal. BUN is [address] of the abdomen done yesterday revealed findings suggestive of acute cholecystitis with distended gallbladder and gallbladder wall thickening. ASSESSMENT: An 87-year-old male recently off the ventilator with findings of acute cholecystitis. I think at this point it might be best to temporize with a percutaneous cholecystostomy as the patient is still recovering from his pneumonia. Later on once the patient has adequately recovered, then cholecystectomy probably would needed. I will consult interventional radiology to see if this procedure can be done. I have also discussed this with the patient's daughter. She wishes to proceed with the less invasive procedure at this time. Thank you for asking me to see Mr. Lopez. Job#: [id number] VT
[2017-08-28] MEDS: VANCOMYCIN 1GM/NS 250 ML 250 ML IV SCH (16:25)
[2017-08-28] MEDS: ACETAMINOPHEN 325 MG/10 ML UDC NG PRN (17:14)
[2017-08-28] MEDS: COLESTIPOL HCL 1 G TAB PO SCH (21:08)
[2017-08-28] MEDS: SERTRALINE HCL 50 MG TAB PO SCH (21:08)
[2017-08-28] MEDS: DONEPEZIL HCL 5 MG TAB PO SCH (21:08)
[2017-08-28] MEDS: INSULIN DETEMIR 100 UNIT/ML PEN SQ SCH (21:17)
[2017-08-29] VITALS (34 sets, daily range): BP systolic 53–130; BP diastolic 25–77
[2017-08-29] MEDS: ALBUTEROL SULF 0.083% NEB SOLN 3 ML NEB NEB PRN ×6 (02:53→23:00)
[2017-08-29] MEDS: METRONIDAZOLE 500MG/NS 100ML 100 ML IV SCH ×3 (04:11→19:56)
[2017-08-29 04:52] LABS: BASOPHILS % 0.2 % (0.0-1.0); EOSINOPHILS # (AUTO) 0.2 (0.0-0.4); HEMATOCRIT 32.8 % (38.2-49.6); HEMOGLOBIN 10.5 g/dL (14.0-18.0); LYMPHOCYTES # (AUTO) 1.3 (1.0-3.2); LYMPHOCYTES % 10.6 % (18.0-39.1); MEAN CORPUSCULAR HEMOGLOBIN 30.3 pg (28-32); MEAN CORPUSCULAR VOLUME 94.5 fL (81-99); MONOCYTES # (AUTO) 0.7 (0.2-0.8); MONOCYTES % 6.2 % (4.4-11.3); NEUTROPHILS # (AUTO) 9.6 (2.1-6.9); NEUTROPHILS % 80.2 % (38.7-80.0); PLATELET COUNT 352 x10e3/uL (140-360); RED BLOOD COUNT 3.47 x10e6/uL (4.3-5.7); RED CELL DISTRIBUTION WIDTH 15.5 % (11.7-14.4)
[2017-08-29] MEDS: HYDROMORPHONE 1MG/1ML INJ IV PRN ×2 (05:00→15:20)
[2017-08-29 05:18] LABS: ALBUMIN 2.2 g/dL (3.5-5.0); ALBUMIN/GLOBULIN RATIO 0.5 (0.8-2.0); ANION GAP 12.5 mmol/L (8-16); CREATININE, SERUM 1.46 mg/dL (0.72-1.25); POTASSIUM 3.5 mmol/L (3.5-5.1)
[2017-08-29] MEDS: LEVOTHYROXINE SODIUM 75 MCG TAB PO SCH (05:48)
[2017-08-29] MEDS: LEVOTHYROXINE SODIUM 100 MCG TAB PO SCH (05:48)
[2017-08-29] MEDS: INSULIN LISPRO 100 UNIT/1 ML 3ML VIAL SQ SCH ×4 (05:49→18:00)
--- NOTE | 2017-08-29 06:56 | Diagnostic Imaging Report ---
EXAM: CHEST SINGLE (PORTABLE), AP 1 view INDICATION: Pneumonia COMPARISON: AP view of the chest August 28, 2017 FINDINGS: LINES/TUBES: Nasogastric tube and left approach cardiac device and right approach PICC LUNGS: Stable bilateral airspace opacities. PLEURA: Trace bilateral pleural effusions. Bilateral calcified pleural plaques. HEART AND MEDIASTINUM: Stable appearance BONES AND SOFT TISSUES: No acute findings. IMPRESSION: No interval change Signed by: Dr. Nalini Sal M.D. on 08/29/2017 6:53 AM
[2017-08-29] MEDS: AMIODARONE HCL 200 MG TAB PO SCH (09:00)
[2017-08-29] MEDS: CLOPIDOGREL BISULFATE 75 MG TAB PO SCH (09:00)
[2017-08-29] MEDS: PANTOPRAZOLE SODIUM 40 MG SUSPDR.PKT PO SCH ×2 (09:00→21:43)
[2017-08-29] MEDS: CARVEDILOL 3.125 MG TAB PO SCH ×2 (09:00→21:43)
[2017-08-29] MEDS: BALSAM PERU/CASTOR OIL 60 GM OINT...G. TP SCH (09:00)
[2017-08-29 09:14] LABS: INR 1.49; PARTIAL THROMBOPLASTIN TIME 36.9 seconds (23.8-35.5); PROTHROMBIN TIME 16.9 seconds (11.9-14.5)
[2017-08-29] MEDS ORDERED: DEXTROSE 5% 1,000 ML IV ONE (09:32)
[2017-08-29] MEDS ORDERED: DEXTROSE 5% 500ML 500 ML IV ONE (10:00)
[2017-08-29] MEDS: CEFEPIME HCL 1 GM VIAL IV SCH ×2 (13:00→21:43)
[2017-08-29] MEDS: VANCOMYCIN 1GM/NS 250 ML 250 ML IV SCH (16:00)
--- NOTE | 2017-08-29 19:33 | Progress Note ---
DATE: August 29, 2017 CARDIOLOGY PROGRESS NOTE SUBJECTIVE: No complaints. More calm today. Does grimace to abdominal exam. On telemetry, in paced rhythm. OBJECTIVE VITAL SIGNS: Temperature 98.3, heart rate 65, respiratory rate 18, blood pressure 124/60, O2 sat 98% on nasal cannula, 3 L per minute. GENERAL: In no acute distress. Sleeping, however, easily arousable. NECK: No JVD. CHEST: Clear to auscultation. CARDIOVASCULAR: Regular rate and rhythm. Normal S1 and S2. Systolic ejection murmur, 2/6. No S3, no S4. ABDOMEN: Mildly distended and tender to palpation. No rebound. EXTREMITIES: No edema. Warm distal extremities. CARDIOVASCULAR MEDICATIONS 1. Vancomycin. 2. Metronidazole. 3. Cefepime. 4. Carvedilol 3.125 mg q.12 h. 5. Clopidogrel 75 mg daily. 6. Amiodarone 100 mg daily. 7. Lasix discontinued. STUDIES: White blood cells 12.02, hemoglobin 10.5, platelets 352,000. INR 1.4, creatinine 1.4, BUN 55. Sodium 151, potassium 3.5, chloride 114, bicarbonate 28. Glucose 188. ASSESSMENT 1. Mild discomfort with findings concerning for acute cholecystitis. Pending percutaneous cholecystostomy tube placement. 2. Pneumonia. 3. Aspiration. 4. Womyi-pq-mydodhr mixed systolic and diastolic heart failure, status post [employer]. Errol implantable cardioverter defibrillator. 5. Hypertension and diabetes mellitus. 6. Asbestos exposure. 7. Coronary artery disease with history of bypass in the s. 8. Dementia. 9. History of transient ischemic attacks. 10. Acute kidney injury on chronic kidney disease. 11. Confusion. RECOMMENDATIONS: May hold clopidogrel in preparation for cholecystostomy tube. Continue perioperative beta-blockers. Agree with diuretic holiday. Will reassess volume status on a daily basis. Job#: [id number] CQ
[2017-08-29] MEDS: INSULIN DETEMIR 100 UNIT/ML PEN SQ SCH (21:00)
[2017-08-29] MEDS: DONEPEZIL HCL 5 MG TAB PO SCH (21:36)
[2017-08-29] MEDS: COLESTIPOL HCL 1 G TAB PO SCH (21:36)
[2017-08-29] MEDS: SERTRALINE HCL 50 MG TAB PO SCH (21:43)
[2017-08-30] VITALS (22 sets, daily range): BP systolic 104–135; BP diastolic 51–79
[2017-08-30] MEDS: INSULIN LISPRO 100 UNIT/1 ML 3ML VIAL SQ SCH ×5 (00:29→23:28)
[2017-08-30] MEDS: METRONIDAZOLE 500MG/NS 100ML 100 ML IV SCH ×3 (04:32→19:51)
[2017-08-30 05:07] LABS: BASOPHILS # (AUTO) 0.1 (0.0-0.1); BASOPHILS % 0.4 % (0.0-1.0); EOSINOPHILS # (AUTO) 0.3 (0.0-0.4); EOSINOPHILS % 2.6 % (0.0-6.0); HEMATOCRIT 33.8 % (38.2-49.6); HEMOGLOBIN 10.8 g/dL (14.0-18.0); LYMPHOCYTES # (AUTO) 1.6 (1.0-3.2); LYMPHOCYTES % 13.7 % (18.0-39.1); MEAN CORPUSCULAR HEMOGLOBIN 30.5 pg (28-32); MEAN CORPUSCULAR VOLUME 95.5 fL (81-99); MONOCYTES # (AUTO) 1.3 (0.2-0.8); MONOCYTES % 11.1 % (4.4-11.3); NEUTROPHILS # (AUTO) 8.5 (2.1-6.9); NEUTROPHILS % 71.5 % (38.7-80.0); PLATELET COUNT 288 x10e3/uL (140-360); RED BLOOD COUNT 3.54 x10e6/uL (4.3-5.7); RED CELL DISTRIBUTION WIDTH 15.6 % (11.7-14.4)
[2017-08-30 05:35] LABS: ALBUMIN 2.2 g/dL (3.5-5.0); ALBUMIN/GLOBULIN RATIO 0.5 (0.8-2.0); ANION GAP 11.6 mmol/L (8-16); CALCIUM 8.9 mg/dL (8.4-10.2); CREATININE, SERUM 1.28 mg/dL (0.72-1.25); POTASSIUM 3.6 mmol/L (3.5-5.1)
--- NOTE | 2017-08-30 06:36 | Diagnostic Imaging Report ---
EXAM: CHEST SINGLE (PORTABLE), AP 1 view INDICATION: Respiratory failure COMPARISON: AP view of the chest August 29, 2017 FINDINGS: LINES/TUBES: Nasal/orogastric tube, right approach PICC and left retrocardiac device LUNGS: Stable bilateral airspace opacities PLEURA: Bilateral calcified pleural plaques. Likely trace bilateral pleural effusions. HEART AND MEDIASTINUM: Stable BONES AND SOFT TISSUES: No acute findings. IMPRESSION: No interval change in appearance of the chest. Signed by: Dr. Nalini Sal M.D. on 08/30/2017 6:32 AM
[2017-08-30] MEDS: LEVOTHYROXINE SODIUM 100 MCG TAB PO SCH (06:58)
[2017-08-30] MEDS: LEVOTHYROXINE SODIUM 75 MCG TAB PO SCH (06:58)
[2017-08-30] MEDS: ALBUTEROL SULF 0.083% NEB SOLN 3 ML NEB NEB PRN ×5 (07:15→23:30)
[2017-08-30] MEDS: HYDROMORPHONE 1MG/1ML INJ IV PRN ×3 (08:13→16:25)
[2017-08-30] MEDS ORDERED: LIDOCAINE HCL 1% LOCAL INJ 20 ML VIAL ONE (08:20)
[2017-08-30] MEDS ORDERED: FENTANYL CITRATE/PF 100MCG/2 ML INJ ONE (08:55)
[2017-08-30] MEDS: BALSAM PERU/CASTOR OIL 60 GM OINT...G. TP SCH (09:00)
[2017-08-30] MEDS ORDERED: SODIUM CHLORIDE 0.9% 500ML 500 ML ONE (09:09)
--- NOTE | 2017-08-30 09:50 | Progress Note ---
DATE: August 30, 2017 Mr. 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 He came to the emergency room with changes in mental status and vomiting. He was found to have pneumonia and started on IV antibiotics. He also was intubated and successfully extubated. He still has an NG tube. He was found to have cholecystitis. He was seen by Dr. Rodriguez. Since the patient was recently extubated, he is not a candidate for a cholecystectomy. They are wishing to proceed with a less invasive procedure so he is going for a percutaneous cholecystostomy today. PHYSICAL EXAMINATION GENERAL: He is awake. VITALS: Temperature is 99.4, blood pressure 115/51. Heart regular rate at 69. Respiratory rate 18. On the blood work, white count is 11.94, slowly going down. Hemoglobin is 10.8, hematocrit 33.8. Potassium 3.6, sodium 150, creatinine 1.28, glucose 173. BNP 671. Sputum culture is showing some MRSA and Samantha albicans. Chest x-ray done today shows no interval change in appearance of the chest. On August 27, he had a CAT scan done that shows gallbladder distention, wall thickening and pericholecystic inflammation suspicious for acute cholecystitis. ASSESSMENT AND PLAN 1. Status post respiratory failure. 2. Bilateral aspiration pneumonia. 3. Acute cholecystitis. 4. Coronary artery disease, status post coronary artery bypass graft. 5. Pqlxj-qz-hrsffcu systolic and diastolic congestive heart failure with ejection fraction of 25%. 6. Presence of defibrillator and permanent pacemaker. 7. Hypertension. 8. Pneumoconiosis. 9. History of cerebrovascular accident. 10. Hyperlipidemia. 11. Diabetes. PLAN: Due to recent extubation, he was evaluated by surgeon. They are going to consider conservative treatment. At the present time, he is better, so he is going for a percutaneous cholecystostomy today. He is still on NG feedings. We will try to discontinue that once he is stable. Continue IV antibiotics. Continue sliding scale with insulin. I spent more than 30 minutes reviewing weekend events, x-rays, blood results, and discussing the plan of care and treatment options with the nurse. Job#: [id number]
--- NOTE | 2017-08-30 10:07 | Progress Note ---
DATE: August 30, 2017 CARDIOLOGY PROGRESS NOTE Physician canceled 00:15 seconds. Job#: [id number]
--- NOTE | 2017-08-30 11:16 | Diagnostic Imaging Report ---
PROCEDURE:PERC CHOLECYSTOSTOMY W TUBE PLACEMENT INC IMAGING COMPARISON:[facility], CT, CT ABDOMEN/PELVIS W, 08/27/2017, 20:21. INDICATIONS:ACUTE CHOLECYSTITIS DLP:1215.02 mGy-cm MEDICATION: Fentanyl 50 mcg given an incremental fashion. Patient was continuously monitored by the dedicated Radiology nurse and the ICU nurse. FINDINGS:CT scan was performed demonstrating the prominent gallbladder. Appropriate location through a portion of the liver into the gallbladder was localized with a grid marker. Patient was prepped and draped in the usual fashion. Local anesthesia with 1% Xylocaine was accomplished. An 18 gauge Chiba needle was placed through a rib interspace. Immediately, dark viscous bile was aspirated and sent to laboratory for culture and sensitivity. A 0.035 " Amplatz Super Stiff wire was advanced into the gallbladder. Serial dilatation with an 8 and then 10 [place]yanese Brody dilator was accomplished. A 10 Guyanese all-purpose drainage catheter was then advanced into the gallbladder and secured to the skin. If gallbladder removal is not performed then a tractogram prior to removal of the cholecystostomy tube should be accomplished. CONCLUSION: Successful image guided cholecystostomy tube placement. Sundar Catalan D.O. Dictated by: Sundar Catalan D.O. on 08/30/2017 at 11:20 Electronically approved by: Sundar Catalan D.O. on 08/30/2017 at 11:20
--- NOTE | 2017-08-30 11:16 | Diagnostic Imaging Report ---
PROCEDURE:PERC CHOLECYSTOSTOMY W TUBE PLACEMENT INC IMAGING COMPARISON:[facility], [place], CT, CT ABDOMEN/PELVIS W, 08/27/2017, 20:21. INDICATIONS:ACUTE CHOLECYSTITIS DLP:1215.02 mGy-cm MEDICATION: Fentanyl 50 mcg given an incremental fashion. Patient was continuously monitored by the dedicated Radiology nurse and the ICU nurse. FINDINGS:CT scan was performed demonstrating the prominent gallbladder. Appropriate location through a portion of the liver into the gallbladder was localized with a grid marker. Patient was prepped and draped in the usual fashion. Local anesthesia with 1% Xylocaine was accomplished. An 18 gauge Chiba needle was placed through a rib interspace. Immediately, dark viscous bile was aspirated and sent to laboratory for culture and sensitivity. A 0.035 " Amplatz Super Stiff wire was advanced into the gallbladder. Serial dilatation with an 8 and then 10 [place] Brody dilator was accomplished. A 10 [place] all-purpose drainage catheter was then advanced into the gallbladder and secured to the skin. If gallbladder removal is not performed then a tractogram prior to removal of the cholecystostomy tube should be accomplished. CONCLUSION: Successful image guided cholecystostomy tube placement. Sundar Catalan D.O. Dictated by: Sundar Catalan D.O. on 08/30/2017 at 11:20 Electronically approved by: Sundar Catalan D.O. on 08/30/2017 at 11:20
[2017-08-30] MEDS: AMIODARONE HCL 200 MG TAB PO SCH (11:56)
[2017-08-30] MEDS: PANTOPRAZOLE SODIUM 40 MG SUSPDR.PKT PO SCH ×2 (11:57→20:00)
[2017-08-30] MEDS: CEFEPIME HCL 1 GM VIAL IV SCH ×2 (11:57→21:03)
[2017-08-30] MEDS: CARVEDILOL 3.125 MG TAB PO SCH ×2 (11:57→20:00)
[2017-08-30] MEDS: VANCOMYCIN 1GM/NS 250 ML 250 ML IV SCH (17:51)
[2017-08-30] MEDS: SERTRALINE HCL 50 MG TAB PO SCH (20:00)
[2017-08-30] MEDS: COLESTIPOL HCL 1 G TAB PO SCH (20:00)
[2017-08-30] MEDS: DONEPEZIL HCL 5 MG TAB PO SCH (20:00)
[2017-08-30] MEDS: INSULIN DETEMIR 100 UNIT/ML PEN SQ SCH (20:10)
--- NOTE | 2017-08-30 22:15 | Progress Note ---
DATE: August 30, 2017 SUBJECTIVE: Patient got cholecystostomy tube placed today. He pulled out his NG. No bowel movement documented for last 2 days. REVIEW OF SYSTEMS: Unobtainable. Patient is very incoherent. MEDICATIONS: Reviewed MAR. He is getting cefepime, as well as vancomycin along with other medications. He has not received any lactulose in last 3 to 4 days. PHYSICAL EXAMINATION VITAL SIGNS: Temperature 96.5, pulse 66, respiration 16, blood pressure 110/57, oxygen saturation 91% on room air. GENERAL: Incoherent, awake, but not alert or oriented to time and place. HEENT: Oral mucosa is moist. Anicteric sclerae. CVS: S1, S2 regular. LUNGS: Bilaterally grossly clear. ABDOMEN: Soft, nondistended, nontender. No palpable mass or hernia. Positive bowel sounds. Gastrostomy tube draining dark bile in the right upper quadrant. EXTREMITIES: Warm. No leg edema. LABS: WBC has come down to 11.94, hemoglobin 10.8, hematocrit 33.8, MCV 95.5, platelet count 288,000. No chemistry done today. IMPRESSIONS 1. Abdominal pain secondary to acute cholecystitis, not a candidate for cholecystectomy; therefore, ended up getting cholecystostomy. 2. Constipation. 3. Oropharyngeal dysphagia, failed swallow evaluation. PLAN: From GI standpoint, continue IV antibiotic for cholecystitis. Lactulose or MiraLAX to ensure 1 or 2 bowel movements daily. Reinsert the NG tube for enteral feeding. Please monitor bowel movements. Job#: [id number]
--- NOTE | 2017-08-30 23:25 | Diagnostic Imaging Report ---
CHEST SINGLE (PORTABLE), 08/30/2017 10:23 PM Technique: CHEST SINGLE (PORTABLE) Comparison: CT 08/27/2017 Clinical history: Line placement Findings: Partially imaged sternotomy wires and pacing/ICD leads. Pigtail catheter projects over the right upper quadrant. Grossly nonobstructive visualized bowel gas pattern. Lungs are suboptimally assessed. Impression: Limited single portable view with motion artifact of the lung bases/upper abdomen. Pigtail catheter projects over the right upper quadrant. Signed by: Dr Clara Foss MD on 08/30/2017 11:22 PM
[2017-08-31] VITALS (26 sets, daily range): BP systolic 95–121; BP diastolic 40–79
[2017-08-31] MEDS: ALBUTEROL SULF 0.083% NEB SOLN 3 ML NEB NEB PRN ×4 (03:00→19:55)
[2017-08-31] MEDS: METRONIDAZOLE 500MG/NS 100ML 100 ML IV SCH ×3 (03:20→19:51)
[2017-08-31 05:05] LABS: BASOPHILS % 0.3 % (0.0-1.0); EOSINOPHILS # (AUTO) 0.3 (0.0-0.4); EOSINOPHILS % 2.9 % (0.0-6.0); HEMATOCRIT 33.2 % (38.2-49.6); HEMOGLOBIN 10.3 g/dL (14.0-18.0); LYMPHOCYTES # (AUTO) 1.3 (1.0-3.2); LYMPHOCYTES % 13.4 % (18.0-39.1); MEAN CORPUSCULAR HEMOGLOBIN 30.2 pg (28-32); MEAN CORPUSCULAR VOLUME 97.4 fL (81-99); MONOCYTES # (AUTO) 0.9 (0.2-0.8); MONOCYTES % 8.8 % (4.4-11.3); NEUTROPHILS # (AUTO) 7.2 (2.1-6.9); PLATELET COUNT 338 x10e3/uL (140-360); RED BLOOD COUNT 3.41 x10e6/uL (4.3-5.7); RED CELL DISTRIBUTION WIDTH 15.9 % (11.7-14.4)
[2017-08-31 05:28] LABS: ALBUMIN 2.2 g/dL (3.5-5.0); ALBUMIN/GLOBULIN RATIO 0.5 (0.8-2.0); ANION GAP 11.1 mmol/L (8-16); CALCIUM 8.7 mg/dL (8.4-10.2); CREATININE, SERUM 1.22 mg/dL (0.72-1.25); POTASSIUM 4.1 mmol/L (3.5-5.1)
[2017-08-31] MEDS: INSULIN LISPRO 100 UNIT/1 ML 3ML VIAL SQ SCH ×4 (05:32→23:37)
[2017-08-31] MEDS: LEVOTHYROXINE SODIUM 100 MCG TAB PO SCH (05:32)
[2017-08-31] MEDS: LEVOTHYROXINE SODIUM 75 MCG TAB PO SCH (05:32)
[2017-08-31] MEDS: HYDROMORPHONE 1MG/1ML INJ IV PRN ×3 (05:47→23:58)
[2017-08-31] MEDS: PANTOPRAZOLE SODIUM 40 MG SUSPDR.PKT PO SCH ×2 (09:00→20:01)
[2017-08-31] MEDS: AMIODARONE HCL 200 MG TAB PO SCH (09:00)
[2017-08-31] MEDS: CARVEDILOL 3.125 MG TAB PO SCH ×2 (09:00→20:01)
[2017-08-31] MEDS: BALSAM PERU/CASTOR OIL 60 GM OINT...G. TP SCH (10:03)
--- NOTE | 2017-08-31 10:03 | Progress Note ---
DATE: August 31, 2017 Mr. Lopez is an 87-year-old man with a history of coronary artery disease. He is status post CABG, systolic and diastolic CHF with ejection fraction of 25%, defibrillator, permanent pacemaker, diabetes, pneumoconiosis, hyperlipidemia came to the emergency room with changes in mental status and vomiting. He went into respiratory distress. He had to be intubated. He was found to have pneumonia. He also was found to have cholecystitis. He is not a candidate at surgery at the present time. He had a percutaneous cholecystostomy tube placed yesterday. PHYSICAL EXAMINATION GENERAL: Today, he looks better. He is awake. He is alert. VITALS: Temperature is 96.9, blood pressure 107/48. HEART: Regular rate. LUNGS: Clear to auscultation. ABDOMEN: Distended and soft. He has a drainage tube. BLOOD WORK: Potassium is 4.1, creatinine 1.22, glucose 149. White count 9.76, hemoglobin 10.3, hematocrit 33.2. ASSESSMENT AND PLAN 1. Status post respiratory failure. 2. Bilateral aspiration pneumonia. 3. Acute cholecystitis: Status post percutaneous cholecystostomy tube placement. 4. Coronary artery disease: Status post coronary artery bypass graft. 5. Kfnky-yk-tyoixiq systolic and diastolic congestive heart failure with ejection fraction of 25%. 6. Presence of defibrillator and permanent pacemaker. 7. Hypertension. 8. Pneumoconiosis. 9. History of cerebrovascular accident. 10. Hyperlipidemia. 11. Diabetes. PLAN: At the present time, is to get a bedside swallow evaluation for the patient since he pulled his NG tube. He has his percutaneous cholecystostomy tube in place. Continue sliding scale with insulin, IV antibiotics. He is already accepted at [place]. We are awaiting for him to see if he can eat. I spent more than 35 minutes examining the patient, reviewing overnight events, lab results, x-rays, and discussing plan of care with him and his daughter. Job#: [id number] TAISHA
[2017-08-31] MEDS: CEFEPIME HCL 1 GM VIAL IV SCH ×2 (12:28→21:06)
[2017-08-31] MEDS ORDERED: ALTEPLASE RECOMBINANT 2 MG/2 ML VIAL IV ONE (14:00)
[2017-08-31] MEDS: VANCOMYCIN 1GM/NS 250 ML 250 ML IV SCH (15:57)
[2017-08-31] MEDS: DEXTROSE 5% 1,000 ML IV SCH (15:59)
[2017-08-31] MEDS: LIDOCAINE HCL 2% JELLY 5 ML TUBE TOP PRN (16:00)
--- NOTE | 2017-08-31 19:34 | Progress Note ---
DATE: August 31, 2017 CARDIOLOGY PROGRESS NOTE SUBJECTIVE: No complaints today. Concerns about issues with swallowing, which are being evaluated. OBJECTIVE VITAL SIGNS: Temperature 98.6, heart rate 61, respiratory rate 22, blood pressure 115/50, O2 sat 100% on nasal cannula. GENERAL: No acute distress. Alert. NECK: No JVD. CHEST: Clear to auscultation. CARDIOVASCULAR: Regular rate and rhythm. Normal S1 and S2. On telemetry, in paced rhythm. ABDOMEN: Soft. EXTREMITIES: No edema. Warm distal extremities. CARDIOVASCULAR MEDICATIONS: Reviewed. 1. Clopidogrel 75 mg daily. 2. Carvedilol 3.125 mg q.12 h. 3. Amiodarone 100 mg daily. 4. Vancomycin. 5. Metronidazole. STUDIES: White blood cells 9.7, hemoglobin 10.3, platelets 338. Creatinine 1.2. Sodium 151, potassium 4.1, chloride 116, bicarbonate 28, BUN 40, creatinine 1.2. AST 27 and ALT 29. ASSESSMENT 1. Hypernatremia/dehydration. 2. Abdominal discomfort, improved. 3. Confusion. 4. Aspiration pneumonia. 5. Concern about swallow issues persisting. 6. Tekfk-nn-jmyieqv mid-systolic and diastolic heart failure. 7. Acute respiratory failure, now status post extubation. 8. History of transient ischemic attack. 9. Dementia. 10. Coronary artery disease with history of bypass in the . 11. Asbestos exposure. 12. Diabetes mellitus. 13. Hypertension. 14. Acute kidney injury on chronic kidney disease. 15. Status post automatic implantable cardioverter-defibrillator, [employer]. Errol. RECOMMENDATION 1. Agree with swallow evaluation. 2. Aspiration precautions. 3. Agree with diuretic holiday as needed. 4. Free water as needed. 5. Trend sodium. 6. Overall renal function seems improved. 7. Continue rest of cardiovascular medications. Job#: [id number]
[2017-08-31] MEDS: LACTULOSE SYRUP 20 GM/30 ML UDC NG PRN (19:46)
[2017-08-31] MEDS: DONEPEZIL HCL 5 MG TAB PO SCH (20:01)
[2017-08-31] MEDS: SERTRALINE HCL 50 MG TAB PO SCH (20:01)
[2017-08-31] MEDS: COLESTIPOL HCL 1 G TAB PO SCH (20:01)
[2017-08-31] MEDS: INSULIN DETEMIR 100 UNIT/ML PEN SQ SCH (20:08)
--- NOTE | 2017-08-31 20:28 | Progress Note ---
DATE: August 31, 2017 SUBJECTIVE: The patient could not get the NG tube placed yesterday. He has not had any bowel movement for 4 to 5 days. The patient was not given any lactulose although it was ordered to be given as needed. REVIEW OF SYSTEMS: Unobtainable as the patient is quite incoherent at this time. MEDICATIONS: Reviewed the MAR. PHYSICAL EXAMINATION VITAL SIGNS: Temperature 98.6, pulse 60, respirations 22, blood pressure 106/46, oxygen saturation 100% on 2 L via nasal cannula. GENERAL: Drowsy, lethargic and incoherent. HEENT: Moist mucous membrane. Anicteric sclerae. CVS: S1, S2, regular. LUNGS: Bilaterally grossly clear. ABDOMEN: Protuberant belly. Nondistended, nontender. No palpable mass or hernia. Bowel sounds hypoactive: Cholecystostomy bag in the right upper quadrant draining dark bile. Bowel sounds present. EXTREMITIES: Warm. No leg edema. LABS: WBC has come down to 9.76, hemoglobin 10.3, hematocrit 33.2, platelet count is 338,000. Sodium 151, potassium 4.1, chloride 116, bicarbonate 28, BUN 40, creatinine 1.22. Liver enzymes showed total bilirubin has come down to 0.9, AST 27, ALT 29, alkaline phosphatase 59. Gallbladder fluid showed white blood cells. Wound culture preliminary showed no growth after 1 day. IMPRESSION 1. Abdominal pain secondary to acute cholecystitis, not a candidate for cholecystectomy therefore ended up getting cholecystostomy. On multiple broad-spectrum intravenous antibiotics. White count has normalized. 2. Constipation. The patient still did lot receive any laxative. 3. Oropharyngeal dysphagia. Has had a swallow evaluation. Modified barium swallow is pending for tomorrow. PLAN: Will request IR to place Dobbhoff NG tube under fluoroscopy. Continue IV antibiotics for cholecystitis. Once NG tube is placed then he should be given MiraLAX and lactulose as ordered. Will continue to follow him clinically. Job#: [id number] SHAUNA
[2017-09-01] VITALS (72 sets, daily range): BP systolic 100–136; BP diastolic 45–69
[2017-09-01] MEDS: ALBUTEROL SULF 0.083% NEB SOLN 3 ML NEB NEB PRN ×4 (02:05→18:48)
[2017-09-01] MEDS: METRONIDAZOLE 500MG/NS 100ML 100 ML IV SCH ×2 (03:17→12:00)
[2017-09-01] MEDS: LEVOTHYROXINE SODIUM 75 MCG TAB PO SCH (05:08)
[2017-09-01] MEDS: LEVOTHYROXINE SODIUM 100 MCG TAB PO SCH (05:08)
[2017-09-01] MEDS: INSULIN LISPRO 100 UNIT/1 ML 3ML VIAL SQ SCH ×4 (05:08→23:36)
[2017-09-01] MEDS: PANTOPRAZOLE SODIUM 40 MG SUSPDR.PKT PO SCH ×2 (08:21→21:05)
[2017-09-01] MEDS: CLOPIDOGREL BISULFATE 75 MG TAB PO SCH ×2 (08:21→10:12)
[2017-09-01] MEDS: AMIODARONE HCL 200 MG TAB PO SCH ×2 (08:21→10:12)
[2017-09-01] MEDS: CARVEDILOL 3.125 MG TAB PO SCH ×2 (08:21→21:05)
[2017-09-01] MEDS: BALSAM PERU/CASTOR OIL 60 GM OINT...G. TP SCH (09:00)
[2017-09-01] MEDS: DEXTROSE 5% 1,000 ML IV SCH (09:00)
--- NOTE | 2017-09-01 09:39 | Progress Note ---
DATE: September 01, 2017 Mr. Lopez is an 87-year-old man with a history of coronary artery disease, status post CABG, systolic and diastolic CHF with ejection fraction of 25%, defibrillator and permanent pacemaker, diabetes, hyperlipidemia, pneumoconiosis, came to the emergency room with changes in mental status and vomiting. He was intubated and successfully extubated. He has been treated with IV antibiotics. He was found to have cholecystitis. The patient was not a candidate for surgery at the present time. He went for a percutaneous cholecystotomy tube. He had a modified barium swallow done that shows he needs thick nectar. We are going to try to start feeding him. PHYSICAL EXAMINATION GENERAL: He is awake and alert. VITALS: Temperature is 98.9, blood pressure 116/50. HEART: Irregularly irregular. LUNGS: Clear to auscultation. ABDOMEN: Distended and tender in the epigastric area. He has a percutaneous cholecystostomy tube that is draining greenish stuff. BLOOD WORK: Potassium is 4.1, creatinine 1.22, glucose 149. White count is 9.76, hemoglobin 10.3, hematocrit 33.2. ASSESSMENT AND PLAN 1. Status post respiratory failure. 2. Aspiration pneumonia. 3. Acute cholecystitis: Status post percutaneous cholecystotomy tube. 4. Coronary artery disease: Status post coronary artery bypass graft. 5. Kmses-wh-eogxutb systolic and diastolic congestive heart failure with ejection fraction of 25%. 6. Presence of defibrillator and permanent pacemaker. 7. Hypertension. 8. Pneumoconiosis. 9. History of cerebrovascular accident. 10. Hyperlipidemia. 11. Diabetes. PLAN: At the present time, is to try to start him on diet with thickened liquids and see if he can tolerate it. He still has epigastric pain even though he has had cholecystostomy tube placed. Continue IV antibiotics. Continue with sliding scale with insulin. If the patient does okay after GI and surgeon sees him and he can tolerate feedings, he may be able to go to [place] in the morning. All of this was discussed with the patient and daughter at bedside. All questions were answered to satisfaction. I spent more than 35 minutes examining the patient, reviewing overnight events, x-rays, lab results, and discussing plan of care with the patient and family. Job#: [id number] TAISHA
[2017-09-01] MEDS: CEFEPIME HCL 1 GM VIAL IV SCH ×2 (09:47→22:46)
--- NOTE | 2017-09-01 11:29 | Diagnostic Imaging Report ---
PROCEDURE:X-RAY MODIFIED BARIUM SWALLOW COMPARISON:None. INDICATIONS:Not provided. DISCUSSION:Fluoroscopic examination was performed in conjunction with speech pathology, during swallowing of a variety of thin and thick liquid consistencies. CONCLUSION:Laryngeal penetration was noted with thin liquids and liquid portion of mixed textures. No lisset aspiration. Please see the report from speech pathology for complete details. Dictated by: Lenny Sharpe M.D. on 09/01/2017 at 11:33 Electronically approved by: Lenny Sharpe M.D. on 09/01/2017 at 11:33
--- NOTE | 2017-09-01 12:43 | Progress Note ---
DATE: September 01, 2017 CARDIOLOGY PROGRESS NOTE SUBJECTIVE: No complaints today. OBJECTIVE VITAL SIGNS: Temperature 98 degrees, heart rate 66, respiratory rate 15, blood pressure 119/53, O2 sat 97% on 2 liters per minute nasal cannula. GENERAL: No acute distress. CHEST: Clear to auscultation. CARDIOVASCULAR: Regular rate and rhythm. Normal S1 and S2. No S3, no S4. Systolic ejection murmur 1/6. Has a paced rhythm. ABDOMEN: Soft, mildly tender. No rebound. No guarding. EXTREMITIES: No edema. CARDIOVASCULAR MEDICATIONS: Reviewed. 1. Clopidogrel 75 mg daily. 2. Amiodarone 100 mg daily. 3. Carvedilol 3.125 mg q.12 h. LABS: Reviewed. Glucose 216. ASSESSMENT 1. Abdominal discomfort, undergoing evaluation. 2. Dehydration. 3. Confusion. 4. Aspiration pneumonia. 5. Concern about swallow study evaluation. 6. Aenka-yl-dewfjjq mixed systolic and diastolic heart failure. 7. Acute respiratory failure, now status post extubation. 8. History of transient ischemic attack. 9. Dementia. 10. Coronary artery disease with history of remote bypass in the . 11. Asbestos exposure. 12. Diabetes mellitus. 13. Hypertension. 14. Acute kidney injury on chronic kidney disease, improved. 15. Status post [employer]rol automatic implantable cardioverter-defibrillator. RECOMMENDATIONS 1. Aspiration precautions. 2. Free water as needed. 3. Trend sodium. 4. Continue cardiovascular medications with diuretic holiday. Resume if volume status worsens. Otherwise, continue rest of cardiovascular medications. Job#: [id number]
[2017-09-01] MEDS: METRONIDAZOLE 500 MG TAB PO SCH ×2 (14:19→22:46)
[2017-09-01] MEDS: VANCOMYCIN 1GM/NS 250 ML 250 ML IV SCH (16:55)
--- NOTE | 2017-09-01 21:00 | Progress Note ---
DATE: September 01, 2017 SUBJECTIVE: Patient has had multiple soft/loose stools last night. He cleared the speech and swallow evaluation. No risk of aspiration seen on modified barium swallow today. Therefore, Dobbhoff NG tube, which was requested to be placed by special procedures, was cancelled. Patient continues to have pain everywhere. REVIEW OF SYSTEMS: GENERAL: No fever or chills. RESPIRATORY: No cough or expectoration. CVS: No chest pain, palpitation. MEDICATIONS: He is getting vancomycin and cefepime along with other medications. PHYSICAL EXAMINATION: VITAL SIGNS: Temperature 98, pulse 68, respiration 17 to 18, blood pressure 116/64, oxygen saturation 99% on 2 liters of nasal cannula. GENERAL: Not in any acute distress. He is alert, awake, and coherent today. HEENT: Moist mucous membranes. Oral mucosa is moist. Anicteric sclerae. CVS: S1 and S2 regular. LUNGS: Bilaterally grossly clear. ABDOMEN: Soft, nondistended. Cholecystostomy tube is draining dark bile in the right upper quadrant. No palpable mass or hernia. Positive bowel sounds. EXTREMITIES: Warm. No leg edema. LABS: WBC has come down to 9.76 from 11.94, hemoglobin 10.3, hematocrit 33.2, MCV 97.4, platelet count 338,000. PT 16.9, INR 1.49, PTT 36.9 on August 29, 2017. IMPRESSION: 1. Abdominal pain secondary to acute cholecystitis, not a candidate for cholecystectomy, therefore ended up getting cholecystostomy. On multiple broad-spectrum intravenous antibiotics. White count has normalized. 2. Constipation, resolved. He is on lactulose as needed. 3. Oropharyngeal dysphagia, this also has resolved. Patient has been assessed and evaluated by speech and swallow, modified barium swallow revealed no risk of aspiration. Patient is being allowed to eat soft food. PLAN: From GI standpoint, abdominal pain is very nonspecific. Patient complains of tenderness anywhere you touch on his body. Not only in abdominal area. Patient has also been seen and evaluated by Dr. Rodriguez today. Patient is cleared to go to [facility]. Job#: [id number]
[2017-09-01] MEDS: COLESTIPOL HCL 1 G TAB PO SCH (21:04)
[2017-09-01] MEDS: DONEPEZIL HCL 5 MG TAB PO SCH (21:04)
[2017-09-01] MEDS: SERTRALINE HCL 50 MG TAB PO SCH (21:05)
[2017-09-01] MEDS: INSULIN DETEMIR 100 UNIT/ML PEN SQ SCH (21:09)
[2017-09-02] VITALS (20 sets, daily range): BP systolic 102–135; BP diastolic 47–62
[2017-09-02] MEDS: DEXTROSE 5% 1,000 ML IV SCH (04:00)
[2017-09-02 05:06] LABS: BASOPHILS % 0.4 % (0.0-1.0); EOSINOPHILS # (AUTO) 0.3 (0.0-0.4); EOSINOPHILS % 3.5 % (0.0-6.0); HEMATOCRIT 30.3 % (38.2-49.6); HEMOGLOBIN 9.7 g/dL (14.0-18.0); LYMPHOCYTES # (AUTO) 1.3 (1.0-3.2); MEAN CORPUSCULAR VOLUME 93.8 fL (81-99); MONOCYTES # (AUTO) 0.6 (0.2-0.8); MONOCYTES % 7.7 % (4.4-11.3); NEUTROPHILS # (AUTO) 5.4 (2.1-6.9); NEUTROPHILS % 70.7 % (38.7-80.0); PLATELET COUNT 287 x10e3/uL (140-360); RED BLOOD COUNT 3.23 x10e6/uL (4.3-5.7); RED CELL DISTRIBUTION WIDTH 15.7 % (11.7-14.4)
[2017-09-02 05:26] LABS: BLOOD UREA NITROGEN 21 mg/dL (7-26); BUN/CREATININE RATIO 20 (6-25); CALCIUM 7.9 mg/dL (8.4-10.2); CARBON DIOXIDE 23 mmol/L (22-29); CHLORIDE 109 mmol/L (98-107); CREATININE, SERUM 1.05 mg/dL (0.72-1.25); EST GLOMERULAR FILTRATION RATE > 60 ML/MIN (60-); GLUCOSE 133 mg/dL (74-118); SODIUM 141 mmol/L (136-145)
[2017-09-02] MEDS: LEVOTHYROXINE SODIUM 75 MCG TAB PO SCH (05:35)
[2017-09-02] MEDS: LEVOTHYROXINE SODIUM 100 MCG TAB PO SCH (05:35)
[2017-09-02] MEDS: METRONIDAZOLE 500 MG TAB PO SCH (05:35)
[2017-09-02] MEDS: INSULIN LISPRO 100 UNIT/1 ML 3ML VIAL SQ SCH (05:49)
[2017-09-02] MEDS: CARVEDILOL 3.125 MG TAB PO SCH (08:37)
[2017-09-02] MEDS: CLOPIDOGREL BISULFATE 75 MG TAB PO SCH (08:37)
[2017-09-02] MEDS: AMIODARONE HCL 200 MG TAB PO SCH (08:37)
[2017-09-02] MEDS: CEFEPIME HCL 1 GM VIAL IV SCH (08:38)
[2017-09-02] MEDS: PANTOPRAZOLE SODIUM 40 MG SUSPDR.PKT PO SCH (08:38)
[2017-09-02] MEDS: BALSAM PERU/CASTOR OIL 60 GM OINT...G. TP SCH (08:38)
[2017-09-02] MEDS ORDERED: POTASSIUM CHLORIDE 20MEQ/100ML 200 ML IV ONE (09:00)
--- NOTE | 2017-09-02 11:07 | Discharge Summary ---
Mr. 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 He was intubated and started on IV antibiotics. Successfully extubated. He was found to have cholecystitis. The patient was not a candidate for surgery at the present time due to all the medical problems. He underwent placement of a percutaneous cholecystotomy tube. He passed the barium swallow test. He needs thickened liquids. At the present time, he is tolerating feedings. The plan is to transfer him to [facility] to continue his treatment. PHYSICAL EXAMINATION GENERAL: Today, he is awake and alert. He is extubated. The NG tube also was removed. VITALS: Temperature is 99, blood pressure 122/62. HEART: Regular rate. LUNGS: Poor inspiratory effort. ABDOMEN: Distended and soft. He has the percutaneous cholecystostomy tube in place. BLOOD WORK: White count is 7.63, hemoglobin 9.7, hematocrit 30.3. Potassium 3. We are going to replace. Glucose 133, creatinine 1.05. C. diff came back negative. Sputum culture shows MRSA and Samantha albicans. ASSESSMENT AND PLAN 1. Status post respiratory failure. 2. Aspiration pneumonia. 3. Acute cholecystitis, status post percutaneous cholecystostomy tube placement. 4. Coronary artery disease, status post coronary artery bypass graft. 5. Hussb-um-lgqhozi systolic congestive heart failure with ejection fraction of 25%. 6. Presence of defibrillator and permanent pacemaker. 7. Hypertension. 8. Pneumoconiosis. 9. History of cerebrovascular accident. 10. Hyperlipidemia. 11. Diabetes. PLAN: At the present time, is to continue p.o. feedings. Continue IV antibiotics. Continue sliding scale with insulin. He is going to get a Doppler of the left upper extremity to check for any DVT. The patient is going to be transferred to [facility] to continue his treatment. Please see home medication reconciliation list. All of this was discussed with the patient and daughter at bedside. All questions were answered to satisfaction. I spent more than 35 minutes examining the patient, reviewing overnight events, x-rays, and blood work, and discussing plan of care with the patient and family. SALOME MALCOLM MD Job#: [id number] TAISHA
[2017-09-02] MEDS ORDERED: INSULIN LISPRO 100 UNIT/1 ML 3ML VIAL SQ SCH (11:30)
[2017-09-02] MEDS ORDERED: APIXAB 2.5 MG TABLET PO SCH (17:00)
[2017-09-03] MEDS ORDERED: PANTOPRAZOLE SOD 40 MG TABEC PO SCH (09:00)
== END 2017-09-02 13:21 | DRG 871 ==
LOC: ER 05:26 → ERHOLD 09:57 → ICU 10:58
PROVIDERS: ADMIT Internal Medicine; ATTEND Internal Medicine
PROC: 5A1945Z Respiratory Ventilation, 24-96 Consecutive Hours (ICD-10-PCS; principal; 2017-08-18)
PROC: 0BH17EZ Insertion of Endotracheal Airway into Trachea, Via Natural or Artificial Opening (ICD-10-PCS; 2017-08-18)
PROC: 02HV33Z Insertion of Infusion Device into Superior Vena Cava, Percutaneous Approach (ICD-10-PCS; 2017-08-18)
PROC: 5A1945Z Respiratory Ventilation, 24-96 Consecutive Hours (ICD-10-PCS; 2017-08-22)
PROC: 0BH17EZ Insertion of Endotracheal Airway into Trachea, Via Natural or Artificial Opening (ICD-10-PCS; 2017-08-22)
PROC: 0F9430Z Drainage of Gallbladder with Drainage Device, Percutaneous Approach (ICD-10-PCS; 2017-08-30)
DX: A41.9 Sepsis, unspecified organism (principal); J96.20 Acute and chronic respiratory failure, unspecified whether with hypoxia or hypercapnia; J69.0 Pneumonitis due to inhalation of food and vomit; R65.21 Severe sepsis with septic shock; J15.212 Pneumonia due to Methicillin resistant Staphylococcus aureus; I50.43 Acute on chronic combined systolic (congestive) and diastolic (congestive) heart failure; E87.2 Acidosis; I13.0 Hypertensive heart and chronic kidney disease with heart failure and stage 1 through stage 4 chronic kidney disease, or unspecified chronic kidney disease; K81.0 Acute cholecystitis; E87.0 Hyperosmolality and hypernatremia; N17.9 Acute kidney failure, unspecified; I25.10 Atherosclerotic heart disease of native coronary artery without angina pectoris; Z95.1 Presence of aortocoronary bypass graft; E78.5 Hyperlipidemia, unspecified; Z86.73 Personal history of transient ischemic attack (TIA), and cerebral infarction without residual deficits; K21.9 Gastro-esophageal reflux disease without esophagitis; Z87.891 Personal history of nicotine dependence; D64.9 Anemia, unspecified; E11.65 Type 2 diabetes mellitus with hyperglycemia; J61 Pneumoconiosis due to asbestos and other mineral fibers; I48.91 Unspecified atrial fibrillation; Z79.01 Long term (current) use of anticoagulants; Z82.49 Family history of ischemic heart disease and other diseases of the circulatory system; Z80.1 Family history of malignant neoplasm of trachea, bronchus and lung; E03.9 Hypothyroidism, unspecified; I35.0 Nonrheumatic aortic (valve) stenosis; Z95.810 Presence of automatic (implantable) cardiac defibrillator; R10.84 Generalized abdominal pain; G30.9 Alzheimer's disease, unspecified; F02.80 Dementia in other diseases classified elsewhere, unspecified severity, without behavioral disturbance, psychotic disturbance, mood disturbance, and anxiety; E11.22 Type 2 diabetes mellitus with diabetic chronic kidney disease; N18.3 Chronic kidney disease, stage 3 (moderate); Z66 Do not resuscitate; R13.12 Dysphagia, oropharyngeal phase; K59.00 Constipation, unspecified; E86.0 Dehydration; R41.0 Disorientation, unspecified; L89.891 Pressure ulcer of other site, stage 1
CPT/HCPCS: 31500; 31720; 36415; 36569; 36600; 47490; 71045; 74018; 74176; 74177; 74230; 74470; 76700; 80048; 80053; 80202; 82150; 82550; 82553; 82805; 82948; 83036; 83605; 83630; 83690; 83880; 84484; 85025; 85610; 85730; 87040; 87045; 87070; 87071; 87186; 87205; 87493; 93005; 93306; 93971; 94002; 94003; 94640; 94660; 94667; 94668; 96361; 96372; 96374; 97139; 99285; C1729; J0692; J0696; J1170; J1940; J1956; J2001; J2060; J2405; J2920; J2930; J2997; J3370; J3480; J7030; J7040; J7050; J7060; J7070; Q9967

== ENCOUNTER → 2017-10-01 | Day surgery (SDC) | payer OTHER ==
[~2017-10-01] VITALS: Ht 177.8 cm; Wt 94.3 kg
[~2017-10-01] MED LIST changes: +ACETAMINOPHEN650 M1 PO; +ALBUTEROL0.63 MG/3 INH; +ATORVASTATIN CA20 MG PO; +CEFEPIME-D1 GM/50 ML IVP; +DIVALPROEX SOD125 M1 PO; +ELIQUIS PO; +FUROSEMIDE40 MG PO; +GLUCERNA237 ML PO; +HEPARIN SO5000 UNIT/ SQ; +HYDROMORPHO2 MG/1 M1 IV; +LACTULOSE20 GM/30 M PO; +LEVEMIR100 UNIT/1 SQ; +LORATADINE10 MG PO; +LORAZEPAM0.5 MG PO; +METRONIDAZOLE500 MG PO; +NITROGLYCERIN0.4 MG SL; +NOVOLOG100 UNITS1 SQ; +NYSTATIN1 EAC1 TOP; +ONDANSETRON2 MG/1 ML IV; +POTASSIUM CHLO20 ME1 PO; +PROTEIN SUPPLEMENT PO; +SIMETHICONE80 MG PO; +VANCOMYCIN1 GM/250 M IV; +VENELEX OINTMEN60 GM TOP; +VITAMIN E1000 UNI3 PO; +lidocaine TOP
[2017-10-01 12:15] VITALS: BP 127/54
[2017-10-01 12:30] VITALS: BP 120/58
[2017-10-01 12:45] VITALS: BP 114/54
[2017-10-01 13:00] VITALS: BP 122/60
[2017-10-01 13:15] VITALS: BP 122/60
[2017-10-01 14:58] VITALS: BP 122/60
--- NOTE | 2017-10-11 13:28 | Diagnostic Imaging Report ---
Date and Time: 10/01/17 Procedure: Cholecystostomy tube injection with fluoroscopic guidance banding machine operator: Dr. Amanda Mckeon Pre-operative diagnosis: Cholecystitis status post cholecystostomy tube placement Post-operative diagnosis: Persistent distal CBD narrowing; immature tube tract Sedation: None Additional Medications: None Fluoroscopy time: 0.6 minutes Dose-area Product: 414 cGycm2. Contrast used: 10 cc Isovue-300 Estimated blood loss: None Specimens: None. Implants: Existing cholecystostomy tube. TECHNIQUE/FINDINGS: Informed consent was obtained. The patient was placed in the supine position on the angiographic table. Injection of dilute contrast material with fluoroscopic guidance demonstrated a non-dilated gallbladder, with equivocal filling defects which may represent stones. Opacification of the CBD which is nondilated. There is narrowing of the distal CBD with only a small amount of contrast seen entering the duodenum. Furthermore, there is flow of contrast into the perihepatic space, suggesting that the tract is immature. Catheter was left in place. Sterile bandage was placed. IMPRESSION: Distal CBD narrowing with slow passage of contrast into the duodenum. Passage of contrast into the perihepatic space, suggesting that the tract is immature, and patient would be at risk for bile leak if the catheter was removed. Catheter was left in place. Possible small filling defects in the gallbladder which may represent stones. PLAN: Plan per surgical team. If there is interval cholecystectomy, catheter can be removed at that time. If there was a history of acalculous cholecystitis, then IR can perform repeat cholangiogram in 4 weeks. Signed by: Dr. Amanda Mckeon MD on 10/01/2017 2:41 PM
== END | disposition home or self-care (01) ==
LOC: CATH LAB 10:25 → EDSTATUS 11:00
PROVIDERS: ATTEND Radiology Diagnostic Radiology
DX: K83.8 Other specified diseases of biliary tract (principal); Z97.8 Presence of other specified devices; Z79.02 Long term (current) use of antithrombotics/antiplatelets; Z79.82 Long term (current) use of aspirin; Z79.4 Long term (current) use of insulin; Z87.891 Personal history of nicotine dependence
CPT/HCPCS: 47531

== ENCOUNTER → 2017-10-11 | Day surgery (SDC) | payer MEDICARE, OTHER ==
[~2017-10-11] MED LIST changes: +BUPIVACAINE 0.25%/EPI 30ML SDV INJ ONE; +BUPIVACAINE HCL 0.5% INJ 30 ML VIAL INJ ONE; +CISATRACURIUM BESYLATE IV ONE; +FENTANYL CITRATE/PF 100MCG/2 ML INJ ONE; +LIDOCAINE HCL (LTA) 4 ML SOLN ONE; +LIDOCAINE HCL 2% LOCAL INJ 5 ML SDV VIAL INJ ONE; +MORPHINE SULFATE 2 MG/ML SYR ONE; +ONDANSETRON HCL INJ 2 MG/ML VIAL ONE; +PROPOFOL IV EMULSION 10 MG/ML 20 ML VIAL ONE; +SEVOFLURANE INHAL SOLN 250 ML PEN BTL ONE
--- NOTE | 2017-10-11 16:15 | Operative Report ---
DATE OF PROCEDURE: October 11, 2017 PREOPERATIVE DIAGNOSES: Ckakh-[id number] cholecystitis, cholelithiasis. POSTOPERATIVE DIAGNOSES: [id number] cholecystitis, cholelithiasis. PROCEDURES PERFORMED 1. Diagnostic laparoscopy. 2. Laparoscopic cholecystectomy. GREENHOUSE OR NURSERY TRANSPLANTER: None. ANESTHESIA: General endotracheal. INDICATIONS AND FINDINGS: Patient is an 87-year-old male who previously had acute cholecystitis, treated with percutaneous cholecystostomy. He is improved now to the point where he can tolerate general anesthesia. At surgery, the gallbladder was contracted and fibrotic containing multiple stones. Cystic duct was about 3 mm in diameter. Common bile duct was about 5 mm in diameter. Liver, stomach, and lower abdomen all appeared normal. TECHNIQUE: After adequate general endotracheal anesthesia with patient in supine position, the abdomen was prepped and draped in sterile fashion with Gunner solution. Skin in the umbilicus was infiltrated with 0.5% Marcaine. Incision was made in the umbilicus. Abdominal wall was elevated and Veress needle was introduced. Pneumoperitoneum was then created. A 10 mm trocar and cannula was then passed through the umbilical wound. Laparoscopic camera was introduced. Initial laparoscopy revealed some adhesions in the right upper quadrant. A 10 mm trocar and cannula was placed in the epigastrium and two 5 mm trocars and cannulas were placed in right upper quadrant, these were placed under direct vision. There were adhesions over the edge of the liver and gallbladder and these were lysed staying close to the gallbladder. Fundus of the gallbladder was grasped and retracted superiorly. Remaining adhesions were lysed, these involved the omentum and transverse colon. Neck of the gallbladder was grasped, retracted laterally. The gallbladder-cystic duct junction was dissected free. Cystic artery was also dissected free. The neck of the gallbladder completely dissected free. Cystic duct was divided between hemoclips with 3 clips being left on the common bile duct side. Cystic artery was also divided between hemoclips close to the gallbladder. The posterior branch of cystic artery was also divided between hemoclips. The gallbladder was dissected free from the liver using scissors and electrocautery. Once it was entirely free, it was placed into an Endopouch and brought out through the epigastric cannula. There were multiple stones. There was one area in the gallbladder bed, which was bleeding that was controlled with electrocautery and hemostasis achieved. Gallbladder bed was irrigated with saline, inspected for hemostasis which was seen to be adequate. It was irrigated once again with saline. All fluid aspirated, inspected for hemostasis, which was seen to be adequate. Instruments and cannulas were then removed. Pneumoperitoneum was evacuated. Wounds were then closed. Fascia in the larger trocar wound closed with 0 Vicryl, skin to all wounds closed with nena. Sterile dressings applied to each wound. The patient tolerated procedure well. Estimated blood loss was 25 mL. There were no complications. All counts were correct. Patient was taken to the recovery room in satisfactory condition. Job#: [id number] JILove
== END | disposition home or self-care (01) ==
LOC: OR 09:57
PROVIDERS: ATTEND Surgery
DX: K80.12 Calculus of gallbladder with acute and chronic cholecystitis without obstruction (principal); F03.90 Unspecified dementia, unspecified severity, without behavioral disturbance, psychotic disturbance, mood disturbance, and anxiety; E11.9 Type 2 diabetes mellitus without complications; I25.2 Old myocardial infarction; Z95.810 Presence of automatic (implantable) cardiac defibrillator; I69.354 Hemiplegia and hemiparesis following cerebral infarction affecting left non-dominant side; Z95.1 Presence of aortocoronary bypass graft; E78.5 Hyperlipidemia, unspecified
CPT/HCPCS: 36415; 47562; 82948; 88304; J2001; J2270; J2405